=== PATIENT | female | born 1960 | race Caucasian/White ===

== ENCOUNTER 2021-09-26 19:08 | Observation (INO) | payer MEDICARE, SELFPAY ==
--- NOTE | 2021-09-26 18:55 | ECG_ITS ---
APPROVED REPORT Exam: Resting ECG HR:103 bpm ECG Measurements Heart Rate 103 AXES QRSd 118 QRS 17 QT 357 T 5 QTc 417 Conclusion ATRIAL FLUTTER/TACHYCARDIA WITH RAPID VENTRICULAR RESPONSE LEFT VENTRICULAR HYPERTROPHY AND ST-T CHANGE [VOLTAGE CRITERIA PLUS ST/T ABNORMALITY] ABNORMAL ECG UNCONFIRMED REPORT Electronically signed by : Gus Young MD 09/29/2021 21:33:31
[2021-09-26 19:00] VITALS: BP 106/77; PULSE 105; RESP 24; TEMP 37; O2SAT 98; BMI 32.9
--- NOTE | 2021-09-26 19:01 | HMH.EDGENADL ---
ED Disposition Clinical Impression: Acute myocardial infarction Qualifiers: Myocardial infarction type: non-ST elevation myocardial infarction Qualified Code(s): I21.4 - Non-ST elevation (NSTEMI) myocardial infarction Atrial fibrillation Qualifiers: Atrial fibrillation type: longstanding persistent Qualified Code(s): I48.11 - Longstanding persistent atrial fibrillation Disposition: Admitted As Inpatient Condition on Discharge: Serious - Critical Care Critical Care Time: No Attestation: On , the high probability of a clinically significant, sudden or life threatening deterioration of the following system(s) required my full and direct attention, intervention and personal management. The time I documented below is in addition to time spent performing reported procedures but includes the following listed in this critical care notation. Medical Decision Making - Medical Records Medical records reviewed: Yes: I reviewed the patient's medical records. - Paul Inquiry Pt receiving controlled substance: No Vital Signs: 09/26/21 19:00 Temperature 98.6 F Temperature Source Oral Pulse Rate [Radial] 105 H Respiratory Rate 24 Blood Pressure [Right Arm] 106/77 L Blood Pressure Mean [Right Arm] 86 Blood Pressure Source [Right Arm] Manual Cuff/ Palpation Blood Pressure Position [Right Arm] Sitting 02 Sat by Pulse Oximetry 98 Oxygen Delivery Method Nasal Cannula Oxygen Flow Rate (LPM) 2 - Lab Data Lab Results 09/26/21 19:15: WBC 14.4 H, RBC 4.47, Hgb 10.9 L, Hct 38.4, MCV 85.8, MCH 24.4 L, MCHC 28.5 L, RDW 18.2 H, Plt Count 454 H, MPV 8.4, Neut % (Auto) 94.7 H, Lymph % (Auto) 3.0 L, Sevier % (Auto) 1.4 L, Eos % (Auto) 0.4, Baso % (Auto) 0.5, Neut # (Auto) 13.6 H, Lymph # (Auto) 0.4 L, Sevier # (Auto) 0.2, Eos # (Auto) 0.1, Baso # (Auto) 0.1, Total Counted 100, Neutrophils % (Manual) 86 H, Band Neutrophils % 7.0, Lymphocytes % (Manual) 6 L, Monocytes % (Manual) 1 L, Platelet Estimate Slight increase, Hypochromasia 3+, Anisocytosis 2+, Microcytosis 2+, Rouleaux 1+ 09/26/21 19:15: Sodium 137, Potassium 3.9, Chloride 103, Carbon Dioxide 26, Anion Gap 11.9, BUN 21 H, Creatinine 0.70, Estimated Creat Clear 74, Estimated GFR 85, Est GFR ( Amer) 102, Glucose 165 H, Calcium 8.7, Total Bilirubin 0.1 L, AST 22, ALT 23, Alkaline Phosphatase 171 H, Total Protein 6.3, Albumin 3.3 L, Globulin 3.0, Albumin/Globulin Ratio 1.1 09/26/21 19:15: SARS-CoV-2 (PCR) Not detected, Influenza A Untype (PCR) Not detected, Influenza Type B (PCR) Not detected Result diagrams: 09/26/21 19:15 09/26/21 19:15 Orders (Tests/Meds): ORDERS Category Date Time Status Brain Natriuretic Peptide Stat Lab 09/26/21 19:15 Results Comprehensive Metabolic Panel Stat Lab 09/26/21 19:15 Results Troponin I Q3H Lab 09/26/21 19:15 Results Troponin I Q3H Lab 09/26/21 22:15 Ordered - ECG Data Tracing #1 I reviewed this ECG and interpreted as documented below: The patient is EKG was done at 1850 6 PM. It shows a tachycardia with a ventricular rate of 103 bpm and is somewhat irregular. There is artifact present. It is difficult to determine whether this is atrial fibrillation or a sinus arrhythmia. It is unchanged from an earlier EKG done at 1745 at the [facility]. QRS is somewhat widened consistent with possible left bundle branch block. - Physician Consults Physician Consulted: Gissell Time: 20:04 Reason -: Admission Comment/Response: Dr. Borrero has agreed to admit the patient to his service. She will be admitted. He is aware that the CT of the chest results are still pending. The CT was performed at the outside institution. We have been promised that the CT results will be faxed to us. Also, the patient came with a CD containing the images for this CT. The patient is already on Eliquis. I think Kellee General Adult HPI - General Stated complaint: NSTEMI Time Seen by Provider: 09/26/21 19:01 Mode of Arrival: EMS Sour
[2021-09-26 19:30] VITALS: BP 124/80; PULSE 105; RESP 23; O2SAT 97
[2021-09-26 19:32] LABS: Basophils # 0.1 K/mm3 (0-0.2); Basophils % 0.5 % (0.1-2.0); Eosinophils # 0.1 K/mm3 (0.0-0.4); Eosinophils % 0.4 % (0.1-12.0); Hematocrit 38.4 % (37.0-47.0); Hemoglobin 10.9 g/dL (12.2-16.2); Lymphocytes # 0.4 K/mm3 (0.7-4.5); Mean Corpuscular HGB Conc 28.5 g/dL (31.8-35.4); Mean Corpuscular Hemoglobin 24.4 pg (27.0-31.2); Mean Corpuscular Volume 85.8 fl (81-99); Mean Platelet Volume 8.4 fl (7.4-10.4); Monocytes # 0.2 K/mm3 (0.1-1.0); Monocytes % 1.4 % (1.7-9.3); Neutrophils # 13.6 K/mm3 (1.8-7.8); Neutrophils % 94.7 % (37.0-80.0); Platelet Count 454 K/mm3 (142-424); Red Blood Count 4.47 M/mm3 (4.20-5.40); Red Cell Distribution Width 18.2 % (11.5-17.5); White Blood Count 14.4 K/mm3 (4.8-10.8)
[2021-09-26 19:40] LABS: Coronavirus 19, PCR Not Detected (NotDetected); Influenza A, PCR Not Detected (NotDetected); Influenza B, PCR Not Detected (NotDetected); MANUAL DIFFERENTIAL MANUAL DIFFERENTIAL (MANUAL DIFF)
[2021-09-26 19:53] LABS: Alanine Aminotransferase 23 U/L (12-78); Albumin Level 3.3 g/dl (3.5-5.0); Albumin/Globulin Ratio 1.1 (1.1-1.8); Alkaline Phosphatase 171 U/L (38-126); Anion Gap 11.9 mEq/L (5-15); Aspartate Amino Transferase 22 U/L (14-36); Blood Urea Nitrogen 21 mg/dl (7-17); Calcium 8.7 mg/dl (8.4-10.2); Carbon Dioxide 26 mmol/L (22.0-30.0); Chloride 103 mmol/L (98-107); Creatinine Clearance Estimated 74 mL/min (50-200); Estimated Glomerular Filt Rate 85 ml/min (>60); GFR (African American) 102 ML/MIN (>60); Glucose 165 mg/dl (74-100); Potassium 3.9 mmoL/L (3.5-5.1); Sodium 137 mmol/L (136-145); Total Protein,Serum 6.3 g/dl (6.3-8.2)
[2021-09-26 19:56] LABS: Anisocytosis 2+; Hypochromasia 3+; Lymphocytes % 6 % (10-50); Microcytosis 2+; Monocytes % 1 % (2-9); Neutrophils % 86 % (42-76); Platelet Estimate Slight Increase; Rouleaux 1+; Total Cells Counted 100
[2021-09-26 19:57] LABS: Bilirubin,Total 0.1 mg/dl (0.2-1.3)
[2021-09-26 20:00] VITALS: BP 143/76; PULSE 101; RESP 24; O2SAT 97
[2021-09-26 20:05] LABS: NT Pro Brain Natriuretic Pep. 5610 pg/mL (0-125); Troponin I 0.06 ng/ml (0.00-0.034)
[2021-09-26 20:12] VITALS: BP 143/76; PULSE 105; RESP 20; TEMP 36.6; O2SAT 94; BMI 30.9
[2021-09-26 20:23] VITALS: BP 143/76; PULSE 101; RESP 16; TEMP 37; O2SAT 97
--- NOTE | 2021-09-26 20:30 | PC.NURSE ---
PT ARRIVED TO FLOOR VIA W/C FROM ED W/STAFF @[id number]
[2021-09-26 20:45] VITALS: PULSE 92
[2021-09-26 20:45] LABS: T4 (Thyroxine) 11.7 ug/dl (5.53-11.0)
[2021-09-26 20:58] LABS: Thyroid Stimulating Hormone 2.62 uIU/mL (0.465-4.68)
[2021-09-26 21:23] LABS: Microscopic, Urine URINE MICROSCOPIC (MICROSCOPIC)
[2021-09-26 21:29] LABS: Appearance,Urine CLEAR (Clear); Bilirubin,Urine Negative (Negative); Blood, Urine 1+ (Negative); Color,Urine YELLOW (Yellow); Glucose,Urine (UA) Negative (Negative); Ketones,Urine TRACE (Negative); Leukocyte Esterase,Urine Negative (Negative); Nitrate,Urine Negative (Negative); PH,Urine 5.5 (5.0-8.5); Protein,Urine 3+ (Negative); Specific Gravity, Urine 1.025 (1.005-1.030); Urobilinogen,Urine 0.2 EU/dl (0.2)
[2021-09-27] VITALS (9 sets, daily range): BP systolic 84–123; BP diastolic 58–87; PULSE 70–104; RESP 16–17; TEMP 36.3–36.8; O2SAT 90–99; BMI 30.9
[2021-09-27 00:10] LABS: Troponin I 0.05 ng/ml (0.00-0.034)
--- NOTE | 2021-09-27 04:30 | PC.NURSE ---
Patient admitted to floor. Patient states no chest pain throughout shift. VSS. Tele in place rhythm have been sinus and sinus tach.
[2021-09-27 05:50] LABS: Troponin I 0.04 ng/ml (0.00-0.034)
--- NOTE | 2021-09-27 08:27 | P.CONPHA_ITS ---
[facility] Pharmacy VTE Monitoring - Patient Demographics Admission date: 09/26/21 Report Date: 09/27/21 Time: 08:27 Allergies/Adverse Reactions: Patient Allergies No Known Allergies Allergy (Verified 09/26/21 19:47) Height: 1.57 m Weight: 76.34 kg Patient Problems: Current Active Problems Acute myocardial infarction (Acute) Atrial fibrillation (Acute) - VTE Risk Labs: VTE Related Lab Results Hgb 10.9 g/dL (12.2-16.2) L 09/26/21 19:15 Hct 38.4 % (37.0-47.0) 09/26/21 19:15 Plt Count 454 K/mm3 (142-424) H 09/26/21 19:15 BUN 21 mg/dl (7-17) H 09/26/21 19:15 Creatinine 0.70 mg/dl (0.52-1.04) 09/26/21 19:15 Estimated Creat Clear 74 mL/min (50-200) 09/26/21 19:15 VTE Score: 6 VTE Risk Level: Moderate Risk - Prophylaxis VTE Prophylaxis Ordered?: Yes Types of VTE Prophylaxis: TEDS Knee High, Pharmacological Location of Applied Device: Bilateral Lower Extremeties Pharmacologic Type: Other (ELIQUIS)
--- NOTE | 2021-09-27 08:52 | HMH.PHAINT ---
MEDICATION RECONCILIATION COMPLETED ON PATIENT USING EXTERNAL FILL HISTORY FROM PHARMACY AND PATIENT INTERVIEW. -BRICE SWANSON, KAREND
--- NOTE | 2021-09-27 09:47 | HMH.HP ---
*Admission Date: 09/26/21 *Chief complaint: sob/weakness *History of present illness: this patient was seen at [facility] ed -with sob and weakness and noted to have elevated trop and was transferred to [facility] for card eval - per dr ziegler- pt with hx of cad and had cabg in past and ht cath in 2020 at [facility] with no reported stents - will try to obtain records- has tob use and a fib and diabetes - pt admitted for eval and treatment [facility] History I have reviewed the patient's past medical history: Yes Medical History: Reports:: Congestive Heart Failure, Deep Vein Thrombosis, Diabetes Mellitus Type 2, Hypertension, Myocardial Infarction Denies:: Cancer, Diabetes Mellitus Type 1, Internal Pacemaker, MRSA *Have you ever received a pneumonia vaccine?: No *Have you received a flu vaccine this season?: No Other Surgeries: Yes: CABG. No: Pacemaker Amputation: No Fractures: No - *Social History Last grade of school completed: 11th or 12th Smoking Status: Current every day smoker Tobacco Type: cigarettes # Packs/Day (cigarettes): 1 Alcohol Intake: never *Occupational Status:: retired Household Members: family *Travel in the last 8 weeks: None Family Hx:: Heart Attack Review of Systems - Review of Systems Review of systems:: pertinent systems reviewed and negative unless documented below - Constitutional Reports weakness, Denies fever(s) - Eyes Denies change in vision - ENT Denies sore throat - *Cardiovascular Reports shortness of breath, Denies chest pain - *Respiratory Denies cough, Denies coughing up blood - *Gastrointestinal Denies abdominal pain - *Genitourinary Denies blood in urine - *Musculoskeletal Denies joint pain - Integumentary/Breasts Denies rash - *Neurologic Denies seizure-like activity - Psychiatric Denies confusion Meds Home Medications Medication Instructions Recorded Confirmed Type ARIPiprazole [Abilify 5mg Tablet] 5 mg PO DAILY 09/26/21 09/26/21 History Apixaban [Eliquis 5mg tab] 5 mg PO BID 09/26/21 09/26/21 History Atorvastatin Calcium [Lipitor 80mg 80 mg PO HS 09/26/21 09/26/21 History Tablet*] Fluticasone/Vilanterol [Breo 1 puff IH DAILY 09/26/21 09/27/21 History Ellipta 200-25 Mcg INH] Losartan Potassium 25 mg PO DAILY 09/26/21 09/26/21 History Metformin HCl [Metformin 1000mg 1,000 mg PO BID 09/26/21 09/27/21 History Tablets] PARoxetine HCL [Paxil] 40 mg PO DAILY 09/26/21 09/26/21 History Potassium Chloride 20 meq PO DAILY 09/26/21 09/26/21 History Trazodone HCl 150 mg PO HS 09/26/21 09/27/21 History Insulin Glargine,Hum.rec.anlog 50 units SQ HS 09/27/21 09/27/21 History [Lantus Solostar 100 Units/mL 3mL flexpen] Magnesium Oxide [Mag-Ox 400mg Tab] 400 mg PO DAILY 09/27/21 09/27/21 History Metoprolol Tartrate [Lopressor 50 mg PO BID 09/27/21 09/27/21 History 50mg tablet] Pioglitazone HCl [Actos 15mg 15 mg PO DAILYDM 09/27/21 09/27/21 History tablet] Allergies Allergy/AdvReac Type Severity Reaction Status Date / Time No Known Allergies Allergy Verified 09/26/21 19:47 Exam Vital signs and Labs for Last 24 Hours: Temp Pulse Resp BP Pulse Ox 97.4 F L 83 16 123/87 98 09/27/21 08:00 09/27/21 08:18 09/27/21 08:00 09/27/21 08:00 09/27/21 08:18 Laboratory Results - last 24 hr 09/26/21 19:15: WBC 14.4 H, RBC 4.47, Hgb 10.9 L, Hct 38.4, MCV 85.8, MCH 24.4 L, MCHC 28.5 L, RDW 18.2 H, Plt Count 454 H, MPV 8.4, Neut % (Auto) 94.7 H, Lymph % (Auto) 3.0 L, Bath % (Auto) 1.4 L, Eos % (Auto) 0.4, Baso % (Auto) 0.5, Neut # (Auto) 13.6 H, Lymph # (Auto) 0.4 L, Bath # (Auto) 0.2, Eos # (Auto) 0.1, Baso # (Auto) 0.1, Total Counted 100, Neutrophils % (Manual) 86 H, Band Neutrophils % 7.0, Lymphocytes % (Manual) 6 L, Monocytes % (Manual) 1 L, Platelet Estimate Slight increase, Hypochromasia 3+, Anisocytosis 2+, Microcytosis 2+, Rouleaux 1+ 09/26/21 19:15: Sodium 137, Potassium 3.9, Chloride 103, Carbon Dioxide 26, Anion Gap
--- NOTE | 2021-09-27 09:48 | XR_ITS ---
PROCEDURE INFORMATION: Exam: XR Chest Exam date and time: 09/27/2021 10:19 AM Age: 61 years old Clinical indication: Shortness of breath; Additional info: SOB TECHNIQUE: Imaging protocol: Radiologic exam of the chest. Views: 2 views. COMPARISON: No relevant prior studies available. FINDINGS: Lungs: Emphysematous change and interstitial/airspace disease. Subcentimeter pulmonary nodules. Pleural spaces: Small right pleural effusion. Heart/Mediastinum: Borderline cardiomegaly. Vasculature: Calcification of the thoracic aorta. Bones/joints: Median sternotomy. Osteopenia and degenerative change. IMPRESSION: 1. Emphysematous change and interstitial/airspace disease. 2. Small right pleural effusion.
--- NOTE | 2021-09-27 10:02 | PC.NURSE ---
SPOKE WITH DR YE VIA TELEPHONE WHO GAVE OKAY TO GIVE PT A BREAKFAST TRAY AND MORNING MEDS
[2021-09-27 10:21] LABS: Basophils % 0.2 % (0.1-2.0); Eosinophils # 0.1 K/mm3 (0.0-0.4); Eosinophils % 0.9 % (0.1-12.0); Hematocrit 37.3 % (37.0-47.0); Hemoglobin 10.9 g/dL (12.2-16.2); Lymphocytes # 0.6 K/mm3 (0.7-4.5); Lymphocytes % 6.3 % (10-50); Mean Corpuscular HGB Conc 29.2 g/dL (31.8-35.4); Mean Corpuscular Hemoglobin 24.9 pg (27.0-31.2); Mean Corpuscular Volume 85.3 fl (81-99); Mean Platelet Volume 8.7 fl (7.4-10.4); Monocytes # 0.5 K/mm3 (0.1-1.0); Neutrophils # 8.2 K/mm3 (1.8-7.8); Neutrophils % 87.6 % (37.0-80.0); Platelet Count 479 K/mm3 (142-424); Red Blood Count 4.38 M/mm3 (4.20-5.40); Red Cell Distribution Width 18.3 % (11.5-17.5); White Blood Count 9.4 K/mm3 (4.8-10.8)
[2021-09-27 10:25] LABS: MANUAL DIFFERENTIAL MANUAL DIFFERENTIAL (MANUAL DIFF)
[2021-09-27 10:32] LABS: Chloride 104 mmol/L (98-107)
[2021-09-27 10:33] LABS: Potassium 3.8 mmoL/L (3.5-5.1); Sodium 139 mmol/L (136-145)
[2021-09-27 10:35] LABS: Alanine Aminotransferase 28 U/L (12-78); Aspartate Amino Transferase 27 U/L (14-36); Bilirubin,Total 0.4 mg/dl (0.2-1.3); Blood Urea Nitrogen 21 mg/dl (7-17); Creatinine Clearance Estimated 69 mL/min (50-200); Estimated Glomerular Filt Rate 85 ml/min (>60); GFR (African American) 102 ML/MIN (>60)
[2021-09-27 10:36] LABS: Albumin Level 3.7 g/dl (3.5-5.0); Albumin/Globulin Ratio 1.2 (1.1-1.8); Alkaline Phosphatase 149 U/L (38-126); Anion Gap 10.8 mEq/L (5-15); Calcium 8.9 mg/dl (8.4-10.2); Carbon Dioxide 28 mmol/L (22.0-30.0); Glucose 298 mg/dl (74-100); Total Protein,Serum 6.7 g/dl (6.3-8.2)
[2021-09-27 10:44] LABS: Lymphocytes % 6 % (10-50); Monocytes % 8 % (2-9); Neutrophils % 86 % (42-76); Nucleated Red Blood Cells 1; Total Cells Counted 100
[2021-09-27 10:50] LABS: Platelet Estimate Slight Increase
[2021-09-27 10:54] LABS: Anisocytosis 1+; Hypochromasia 1+; Ovalocytes 1+; Poikilocytosis 1+; Tear Drop Cells 1+
[2021-09-27 12:03] LABS: POC Glucose,Bedside 308 (70-110)
[2021-09-27 16:23] LABS: POC Glucose,Bedside 258 (70-110)
--- NOTE | 2021-09-27 17:48 | PC.NURSE ---
PT IS AOX4, HAS AMBULATED TO BATHROOM FOR ELIMINATION AND TOLERATED WELL. GOOD DIURESIS NOTED. NO C/O OF CHEST PAIN SOB OR N/V/D.
[2021-09-27 21:30] LABS: POC Glucose,Bedside 304 (70-110)
[2021-09-28] VITALS (12 sets, daily range): BP systolic 92–144; BP diastolic 71–97; PULSE 62–110; RESP 16–17; TEMP 36.6–37; O2SAT 90–99; BMI 31.4
--- NOTE | 2021-09-28 03:42 | PC.NURSE ---
Patient rested well. Patient having good output, stand by assist to the restroom. Patient tolerating 2L NC sating above 90%.
[2021-09-28 09:57] LABS: Basophils % 0.2 % (0.1-2.0); Eosinophils # 0.2 K/mm3 (0.0-0.4); Eosinophils % 1.3 % (0.1-12.0); Hematocrit 37.8 % (37.0-47.0); Hemoglobin 10.5 g/dL (12.2-16.2); Lymphocytes # 0.4 K/mm3 (0.7-4.5); Lymphocytes % 2.9 % (10-50); Mean Corpuscular HGB Conc 27.7 g/dL (31.8-35.4); Mean Corpuscular Hemoglobin 23.9 pg (27.0-31.2); Mean Corpuscular Volume 86.2 fl (81-99); Monocytes # 0.6 K/mm3 (0.1-1.0); Monocytes % 3.9 % (1.7-9.3); Neutrophils # 14.6 K/mm3 (1.8-7.8); Neutrophils % 91.8 % (37.0-80.0); Platelet Count 461 K/mm3 (142-424); Red Blood Count 4.38 M/mm3 (4.20-5.40); Red Cell Distribution Width 18.2 % (11.5-17.5); White Blood Count 15.9 K/mm3 (4.8-10.8)
[2021-09-28 09:59] LABS: MANUAL DIFFERENTIAL MANUAL DIFFERENTIAL (MANUAL DIFF)
[2021-09-28 10:08] LABS: Chloride 102 mmol/L (98-107); Sodium 134 mmol/L (136-145)
[2021-09-28 10:09] LABS: Potassium 4.6 mmoL/L (3.5-5.1)
[2021-09-28 10:11] LABS: Anion Gap 7.6 mEq/L (5-15); Blood Urea Nitrogen 25 mg/dl (7-17); Calcium 8.8 mg/dl (8.4-10.2); Carbon Dioxide 29 mmol/L (22.0-30.0); Creatinine Clearance Estimated 70 mL/min (50-200); Estimated Glomerular Filt Rate 101 ml/min (>60); GFR (African American) 122 ML/MIN (>60); Glucose 316 mg/dl (74-100)
--- NOTE | 2021-09-28 11:08 | HMH.ACPN2 ---
Internal Medicine - PN: Subj *Date: 09/29/21 *Time: 08:02 Interval history: improved but still sob- had diuresis - still not ambulatory sec to sob Exam Vital signs and Labs for Last 24 Hours: Temp Pulse Resp BP Pulse Ox 97.8 F 95 H 17 119/75 93 L 09/28/21 08:00 09/28/21 08:06 09/28/21 08:00 09/28/21 08:00 09/28/21 08:06 Laboratory Results - last 24 hr 09/27/21 11:52: POC Glucose 308 H* 09/27/21 16:09: POC Glucose 258 H 09/27/21 20:14: POC Glucose 304 H* 09/28/21 09:41: WBC 15.9 H D, RBC 4.38, Hgb 10.5 L, Hct 37.8, MCV 86.2, MCH 23.9 L, MCHC 27.7 L, RDW 18.2 H, Plt Count 461 H, MPV 9.0, Neut % (Auto) 91.8 H, Lymph % (Auto) 2.9 L, Runnels % (Auto) 3.9, Eos % (Auto) 1.3, Baso % (Auto) 0.2, Neut # (Auto) 14.6 H, Lymph # (Auto) 0.4 L, Runnels # (Auto) 0.6, Eos # (Auto) 0.2, Baso # (Auto) 0.0 09/28/21 09:41: Sodium 134 L, Potassium 4.6 D, Chloride 102, Carbon Dioxide 29, Anion Gap 7.6, BUN 25 H, Creatinine 0.60, Estimated Creat Clear 70, Estimated GFR 101, Est GFR ( Amer) 122, Glucose 316 H, Calcium 8.8 I & O for Last 24 hours: Intake & Output 09/25/21 09/26/21 09/27/21 09/28/21 11:59 11:59 11:59 11:59 Intake Total 1080 / 1080 Output Total 1650 / 1650 650 / 650 Balance -1650 / -1650 430 / 430 Weight 168 lb 4.8 oz 170 lb 6.4 oz - Constitutional no acute distress, obese - *Routine HEENT Exam Head: Present: normocephalic Eye: Present: EOMI, PERRL ENT: Present: mucous membranes dry - *Routine Neck Exam Absent: JVD - *Routine Respiratory Exam Present: decreased breath sounds - *Routine Cardiovascular Exam Present: RRR - *Routine Abdominal Exam Present: soft - *Routine Extremities Exam Present: edema. Absent: calf tenderness - *Routine Skin Exam Present: intact - *Routine Neurological Exam Present: alert, CN II-XII intact - Routine Psychiatric Exam Present: normal affect Assessment and Plan (1) Atrial fibrillation Status: Acute Qualifiers: Atrial fibrillation type: longstanding persistent Qualified Code(s): I48.11 - Longstanding persistent atrial fibrillation Category: Medical Code(s): I48.91 - Unspecified atrial fibrillation (2) COPD with acute exacerbation Status: Acute Category: Medical Code(s): J44.1 - Chronic obstructive pulmonary disease with (acute) exacerbation (3) Obesity (BMI 30.0-34.9) Status: Acute Category: Medical Code(s): E66.9 - Obesity, unspecified (4) Osteopenia determined by x-ray Status: Acute Category: Medical Code(s): M85.80 - Other specified disorders of bone density and structure, unspecified site (5) Anemia Status: Acute Qualifiers: Anemia type: unspecified type Qualified Code(s): D64.9 - Anemia, unspecified Category: Medical Code(s): D64.9 - Anemia, unspecified (6) Thrombocytosis Status: Acute Category: Medical Code(s): D75.839 - Thrombocytosis, unspecified (7) Diabetes mellitus Status: Acute Qualifiers: Diabetes mellitus type: type 2 Diabetes mellitus intermediate teacher insulin use: unspecified intermediate teacher insulin use status Diabetes mellitus complication status: with other specified complication Qualified Code(s): E11.69 - Type 2 diabetes mellitus with other specified complication Category: Medical Code(s): E11.9 - Type 2 diabetes mellitus without complications (8) Elevated troponin Status: Acute Category: Medical Code(s): R77.8 - Other specified abnormalities of plasma proteins
[2021-09-28 11:39] LABS: POC Glucose,Bedside 253 (70-110)
[2021-09-28 11:39] LABS: POC Glucose,Bedside 294 (70-110)
[2021-09-28 12:37] LABS: Eosinophils % 1 % (0-3); Hypochromasia 2+; Lymphocytes % 5 % (10-50); Monocytes % 4 % (2-9); Neutrophils % 90 % (42-76); Nucleated Red Blood Cells 1; Total Cells Counted 100
[2021-09-28 12:38] LABS: Platelet Estimate Slight Increase
[2021-09-28 12:39] LABS: Ovalocytes 1+; Poikilocytosis 1+; Tear Drop Cells 1+
[2021-09-28 16:37] LABS: POC Glucose,Bedside 206 (70-110)
--- NOTE | 2021-09-28 18:21 | PC.NURSE ---
pt has been pleasant t/o shift. RA tolerating well with O2 sat 92%. pt has been independent going to the br with adequate urine output. 20g in LINNETTE SL. bruising noted on R ac and forearm from previous iv sticks. tele shows nsr to sinus tach. non skid socks on, call byrd and personal items within reach, no questions or concerns at this time.
[2021-09-28 21:15] LABS: POC Glucose,Bedside 275 (70-110)
[2021-09-29] VITALS (12 sets, daily range): BP systolic 103–138; BP diastolic 75–90; PULSE 53–106; RESP 16–18; TEMP 36.7–37.1; O2SAT 90–97; BMI 31.0; BMI 30.7
[2021-09-29 05:57] LABS: POC Glucose,Bedside 299 (70-110)
--- NOTE | 2021-09-29 06:19 | PC.NURSE ---
No acute changes. Pt tolerating RA well with sats >90%. Pt has not voiced any complaints to staff. Able to ambulate to BR independently. Call light within reach.
--- NOTE | 2021-09-29 06:35 | PC.NURSE ---
Pt room air sat resting was 83%, placed pt on 2L NC
--- NOTE | 2021-09-29 09:24 | HMH.ACPN2 ---
Internal Medicine - PN: Subj *Date: 09/30/21 *Time: 06:45 Interval history: looks better but still sob with any exertion Exam Vital signs and Labs for Last 24 Hours: Temp Pulse Resp BP Pulse Ox 98.4 F 106 H 16 114/75 90 L 09/29/21 07:53 09/29/21 07:53 09/29/21 07:53 09/29/21 07:53 09/29/21 07:53 Laboratory Results - last 24 hr 09/28/21 05:35: POC Glucose 253 H 09/28/21 09:41: WBC 15.9 H D, RBC 4.38, Hgb 10.5 L, Hct 37.8, MCV 86.2, MCH 23.9 L, MCHC 27.7 L, RDW 18.2 H, Plt Count 461 H, MPV 9.0, Neut % (Auto) 91.8 H, Lymph % (Auto) 2.9 L, Bowie % (Auto) 3.9, Eos % (Auto) 1.3, Baso % (Auto) 0.2, Neut # (Auto) 14.6 H, Lymph # (Auto) 0.4 L, Bowie # (Auto) 0.6, Eos # (Auto) 0.2, Baso # (Auto) 0.0, Total Counted 100, Neutrophils % (Manual) 90 H, Lymphocytes % (Manual) 5 L, Monocytes % (Manual) 4, Eosinophils % (Manual) 1, Nucleated RBCs 1, Platelet Estimate Slight increase, Hypochromasia 2+, Poikilocytosis 1+, Tear Drop Cells 1+, Ovalocytes 1+ 09/28/21 09:41: Sodium 134 L, Potassium 4.6 D, Chloride 102, Carbon Dioxide 29, Anion Gap 7.6, BUN 25 H, Creatinine 0.60, Estimated Creat Clear 70, Estimated GFR 101, Est GFR ( Amer) 122, Glucose 316 H, Calcium 8.8 09/28/21 11:18: POC Glucose 294 H 09/28/21 16:29: POC Glucose 206 H 09/28/21 20:25: POC Glucose 275 H 09/29/21 05:32: POC Glucose 299 H I & O for Last 24 hours: Intake & Output 09/26/21 09/27/21 09/28/21 09/29/21 11:59 11:59 11:59 11:59 Intake Total 1080 / 1080 720 / 720 Output Total 1650 / 1650 650 / 650 1999 Balance -1650 / -1650 430 / 430 -1280 / -1280 Weight 168 lb 4.8 oz 170 lb 6.4 oz 168 lb 11.2 oz - Constitutional no acute distress - *Routine HEENT Exam Head: Present: normocephalic Eye: Present: EOMI, PERRL ENT: Present: mucous membranes dry - *Routine Neck Exam Absent: JVD - *Routine Respiratory Exam Present: decreased breath sounds, rhonchi, wheezes - *Routine Cardiovascular Exam Present: RRR, murmur, S4 - *Routine Abdominal Exam Present: soft - *Routine Extremities Exam Absent: calf tenderness - *Routine Skin Exam Present: intact - *Routine Neurological Exam Present: alert, CN II-XII intact - Routine Psychiatric Exam Present: normal affect Assessment and Plan (1) Atrial fibrillation Status: Acute Qualifiers: Atrial fibrillation type: longstanding persistent Qualified Code(s): I48.11 - Longstanding persistent atrial fibrillation Category: Medical Code(s): I48.91 - Unspecified atrial fibrillation (2) COPD with acute exacerbation Status: Acute Category: Medical Code(s): J44.1 - Chronic obstructive pulmonary disease with (acute) exacerbation (3) Obesity (BMI 30.0-34.9) Status: Acute Category: Medical Code(s): E66.9 - Obesity, unspecified (4) Osteopenia determined by x-ray Status: Acute Category: Medical Code(s): M85.80 - Other specified disorders of bone density and structure, unspecified site (5) Anemia Status: Acute Qualifiers: Anemia type: unspecified type Qualified Code(s): D64.9 - Anemia, unspecified Category: Medical Code(s): D64.9 - Anemia, unspecified (6) Thrombocytosis Status: Acute Category: Medical Code(s): D75.839 - Thrombocytosis, unspecified (7) Diabetes mellitus Status: Acute Qualifiers: Diabetes mellitus type: type 2 Diabetes mellitus fdc insulin use: unspecified long term care pharmacist insulin use status Diabetes mellitus complication status: with other specified complication Qualified Code(s): E11.69 - Type 2 diabetes mellitus with other specified complication Category: Medical Code(s): E11.9 - Type 2 diabetes mellitus without complications (8) Elevated troponin Status: Acute Category: Medical Code(s): R77.8 - Other specified abnormalities of plasma proteins (9) CHF (congestive heart failure) Status: Acute Qualifiers: Heart failure type: unspecified Heart failure chronicity: acute Anibal
--- NOTE | 2021-09-29 09:26 | XR_ITS ---
PROCEDURE INFORMATION: Exam: XR Chest Exam date and time: 09/29/2021 9:56 AM Age: 61 years old Clinical indication: Shortness of breath; Additional info: SOB TECHNIQUE: Imaging protocol: Radiologic exam of the chest. Views: 2 views. COMPARISON: CR XR CHEST 2V 09/27/2021 10:19 AM FINDINGS: Lungs: There are some mild patchy opacities in the mid left lung. Pleural spaces: Small bilateral pleural effusions. Heart/Mediastinum: Changes of prior CABG. Bones/joints: Unremarkable. IMPRESSION: 1. Mild patchy opacities in the mid left lung, which may reflect atelectasis versus pneumonia. 2. Small bilateral pleural effusions.
[2021-09-29 10:53] LABS: Basophils # 0.1 K/mm3 (0-0.2); Basophils % 0.3 % (0.1-2.0); Eosinophils # 0.2 K/mm3 (0.0-0.4); Eosinophils % 1.2 % (0.1-12.0); Hematocrit 37.2 % (37.0-47.0); Hemoglobin 10.6 g/dL (12.2-16.2); Lymphocytes # 0.4 K/mm3 (0.7-4.5); Lymphocytes % 2.5 % (10-50); Mean Corpuscular HGB Conc 28.6 g/dL (31.8-35.4); Mean Corpuscular Hemoglobin 23.7 pg (27.0-31.2); Mean Platelet Volume 9.3 fl (7.4-10.4); Monocytes # 0.6 K/mm3 (0.1-1.0); Monocytes % 3.6 % (1.7-9.3); Neutrophils # 16.3 K/mm3 (1.8-7.8); Neutrophils % 92.5 % (37.0-80.0); Platelet Count 489 K/mm3 (142-424); Red Blood Count 4.49 M/mm3 (4.20-5.40); White Blood Count 17.7 K/mm3 (4.8-10.8)
[2021-09-29 11:02] LABS: Alanine Aminotransferase 30 U/L (12-78); Albumin Level 3.7 g/dl (3.5-5.0); Albumin/Globulin Ratio 1.3 (1.1-1.8); Alkaline Phosphatase 122 U/L (38-126); Anion Gap 10.3 mEq/L (5-15); Aspartate Amino Transferase 25 U/L (14-36); Bilirubin,Total 0.2 mg/dl (0.2-1.3); Blood Urea Nitrogen 30 mg/dl (7-17); Calcium 9.1 mg/dl (8.4-10.2); Carbon Dioxide 32 mmol/L (22.0-30.0); Chloride 96 mmol/L (98-107); Creatinine Clearance Estimated 70 mL/min (50-200); Estimated Glomerular Filt Rate 85 ml/min (>60); GFR (African American) 102 ML/MIN (>60); Globulin 2.8 g/dL (1.3-3.2); Glucose 260 mg/dl (74-100); Potassium 4.3 mmoL/L (3.5-5.1); Sodium 134 mmol/L (136-145); Total Protein,Serum 6.5 g/dl (6.3-8.2)
[2021-09-29 11:10] LABS: MANUAL DIFFERENTIAL MANUAL DIFFERENTIAL (MANUAL DIFF)
[2021-09-29 12:11] LABS: POC Glucose,Bedside 243 (70-110)
[2021-09-29 12:23] LABS: Lymphocytes % 5 % (10-50); Monocytes % 7 % (2-9); Neutrophils % 88 % (42-76); Total Cells Counted 100
[2021-09-29 12:26] LABS: Hypochromasia 3+; Ovalocytes 2+; Rouleaux 1+
[2021-09-29 12:27] LABS: Platelet Estimate Normal
--- NOTE | 2021-09-29 13:15 | PC.NURSE ---
Pt found again on room air, sat was 83% resting. Placed back on 2L and recovered to 92%.
[2021-09-29 17:02] LABS: POC Glucose,Bedside 368 (70-110)
--- NOTE | 2021-09-29 18:31 | PC.NURSE ---
Patient refused new iv stick as she stated she is a hard stick and an ultrasound had been used to place current iv. Patient educated about risks of infection but still refuses new iv. Patient able to ambulate several times a day as she left the floor multiple times during the day with family. Paper signed and patient educated that [facility] is not liable once she steps off the floor. VS stable and patient remained on room air with no other complaints.
[2021-09-29 20:28] LABS: POC Glucose,Bedside 209 (70-110)
[2021-09-30] VITALS (9 sets, daily range): BP systolic 100–138; BP diastolic 65–94; PULSE 60–120; RESP 17–20; TEMP 36.5–36.9; O2SAT 89–97; BMI 30.8
--- NOTE | 2021-09-30 06:43 | PC.NURSE ---
No acute changes. Pt tolerating RA with 2 L nc PRN well with sats >90%. Pt able to ambulate to BR independently. No complaints voiced to staff. Call light within reach
[2021-09-30 07:55] LABS: Anion Gap 9.2 mEq/L (5-15); Blood Urea Nitrogen 31 mg/dl (7-17); Calcium 8.6 mg/dl (8.4-10.2); Carbon Dioxide 32 mmol/L (22.0-30.0); Chloride 97 mmol/L (98-107); Creatinine Clearance Estimated 69 mL/min (50-200); Estimated Glomerular Filt Rate 101 ml/min (>60); GFR (African American) 122 ML/MIN (>60); Glucose 273 mg/dl (74-100); Potassium 4.2 mmoL/L (3.5-5.1); Sodium 134 mmol/L (136-145)
[2021-09-30 07:56] LABS: Eosinophils % 0.1 % (0.1-12.0); Hematocrit 34.2 % (37.0-47.0); Hemoglobin 10.7 g/dL (12.2-16.2); Lymphocytes # 0.5 K/mm3 (0.7-4.5); Lymphocytes % 3.7 % (10-50); Mean Corpuscular HGB Conc 31.2 g/dL (31.8-35.4); Mean Corpuscular Hemoglobin 24.9 pg (27.0-31.2); Mean Corpuscular Volume 79.7 fl (81-99); Mean Platelet Volume 8.5 fl (7.4-10.4); Monocytes # 0.6 K/mm3 (0.1-1.0); Monocytes % 4.1 % (1.7-9.3); Neutrophils # 12.6 K/mm3 (1.8-7.8); Neutrophils % 92.1 % (37.0-80.0); Platelet Count 442 K/mm3 (142-424); Red Blood Count 4.29 M/mm3 (4.20-5.40); Red Cell Distribution Width 16.9 % (11.5-17.5); White Blood Count 13.7 K/mm3 (4.8-10.8)
[2021-09-30 08:02] LABS: MANUAL DIFFERENTIAL MANUAL DIFFERENTIAL (MANUAL DIFF)
--- NOTE | 2021-09-30 08:16 | HMH.CNCARD ---
History of Present Illness Consult date: 09/30/21 Requesting physician: Renard Borrero Consult reason: shortness of breath Chief complaint: NSTEMI, SOA Additional Medical History:: 1. Coronary artery disease A. History of three-vessel bypass approximately B. History of coronary stenting approximately 2009 C. History of left heart catheterization approximately 2020, [facility] in [place], [place] with no need for intervention per patient. 2. Continued tobacco use of 45 years with 1/2 to 1 pack/day A. COPD/emphysema 3. Diabetes mellitus, treated for about 15 years 4. Hypertension 5. Hyperlipidemia 6. History of atrial fibrillation, on anticoagulation with Eliquis therapy 7. History of right carotid endarterectomy with no prior history of CVA 8. Per records, history of DVT History of present illness: 61-year-old white female was initially seen in [facility] for complaint of several days history of increased shortness of breath and fatigue. During the work-up patient was noted to have elevated troponins consistent with non-ST elevation [place] at which time Dr. Niño was contacted with instructions to transfer to [facility] for further evaluation. Patient confirms exertional shortness of breath over the last several days and productive cough of greenish colored phlegm. She denies any chest pain, pressure or tightness at this time. Patient has a flat affect and gives brief answers and admits to being a poor historian. She does relate an episode where she fell and possibly lost consciousness about a month ago but was able to regain consciousness quickly. Denies any evaluation or lingering effects from it. EKG on admission here appears to be atrial fibrillation/atrial flutter with mild tachycardic rate at 103 bpm with no acute ST segment changes. Telemetry shows continued atrial fibrillation. Echocardiogram performed this morning with preliminary result shows EF approximately 40-45%. Elevated white count with chest x-ray evidence of pneumonia and bilateral small pleural effusions. Anemia with hemoglobin in the 10-11 range. [facility] History Medical History: Reports:: Congestive Heart Failure, Deep Vein Thrombosis, Diabetes Mellitus Type 2, Hypertension, Myocardial Infarction Denies:: Cancer, Diabetes Mellitus Type 1, Internal Pacemaker, MRSA *Have you ever received a pneumonia vaccine?: No *Have you received a flu vaccine this season?: No Other Surgeries: Yes: CABG. No: Pacemaker Amputation: No Fractures: No - *Social History Last grade of school completed: 11th or 12th Smoking Status: Current every day smoker Tobacco Type: cigarettes # Packs/Day (cigarettes): 1 Alcohol Intake: never *Occupational Status:: retired Household Members: family *Travel in the last 8 weeks: None Family Hx:: Heart Attack Meds Home Medications Medication Instructions Recorded Confirmed Type ARIPiprazole [Abilify 5mg Tablet] 5 mg PO DAILY 09/26/21 09/26/21 History Apixaban [Eliquis 5mg tab] 5 mg PO BID 09/26/21 09/26/21 History Atorvastatin Calcium [Lipitor 80mg 80 mg PO HS 09/26/21 09/26/21 History Tablet*] Fluticasone/Vilanterol [Breo 1 puff IH DAILY 09/26/21 09/27/21 History Ellipta 200-25 Mcg INH] Losartan Potassium 25 mg PO DAILY 09/26/21 09/26/21 History Metformin HCl [Metformin 1000mg 1,000 mg PO BID 09/26/21 09/27/21 History Tablets] PARoxetine HCL [Paxil] 40 mg PO DAILY 09/26/21 09/26/21 History Potassium Chloride 20 meq PO DAILY 09/26/21 09/26/21 History Trazodone HCl 150 mg PO HS 09/26/21 09/27/21 History Insulin Glargine,Hum.rec.anlog 50 units SQ HS 09/27/21 09/27/21 History [Lantus Solostar 100 Units/mL 3mL flexpen] Magnesium Oxide [Mag-Ox 400mg Tab] 400 mg PO DAILY 09/27/21 09/27/21 History Metoprolol Tartrate [Lopressor 50 mg PO BID 09/27/21 09/27/21 History 50mg tablet] Pioglitazone HCl [Actos 15mg 15 mg PO DAILYDM 09/27/21 09/27/21 History table
--- NOTE | 2021-09-30 09:20 | HMH.ACPN2 ---
Internal Medicine - PN: Subj *Date: 09/30/21 *Time: 14:50 Interval history: 61-year-old female patient sitting up in chair at bedside. She denies any shortness of breath, current oxygenation 95% on room air. Discussed with patient regarding leaving for and medical necessity for her to stay on floor, she verbalizes understanding. Current plan is for her to undergo cardiac catheterization tomorrow Exam Vital signs and Labs for Last 24 Hours: Temp Pulse Resp BP Pulse Ox 97.7 F 74 17 126/76 95 09/30/21 07:56 09/30/21 07:56 09/30/21 07:56 09/30/21 07:56 09/30/21 07:56 Laboratory Results - last 24 hr 09/29/21 10:40: WBC 17.7 H, RBC 4.49, Hgb 10.6 L, Hct 37.2, MCV 83.0, MCH 23.7 L, MCHC 28.6 L, RDW 18.0 H, Plt Count 489 H, MPV 9.3, Neut % (Auto) 92.5 H, Lymph % (Auto) 2.5 L, Clarke % (Auto) 3.6, Eos % (Auto) 1.2, Baso % (Auto) 0.3, Neut # (Auto) 16.3 H, Lymph # (Auto) 0.4 L, Clarke # (Auto) 0.6, Eos # (Auto) 0.2, Baso # (Auto) 0.1, Total Counted 100, Neutrophils % (Manual) 88 H, Lymphocytes % (Manual) 5 L, Monocytes % (Manual) 7, Platelet Estimate Normal, Hypochromasia 3+, Ovalocytes 2+, Rouleaux 1+ 09/29/21 10:40: Sodium 134 L, Potassium 4.3, Chloride 96 L, Carbon Dioxide 32 H, Anion Gap 10.3, BUN 30 H, Creatinine 0.70, Estimated Creat Clear 70, Estimated GFR 85, Est GFR ( Amer) 102, Glucose 260 H, Calcium 9.1, Total Bilirubin 0.2, AST 25, ALT 30, Alkaline Phosphatase 122, Total Protein 6.5, Albumin 3.7, Globulin 2.8, Albumin/Globulin Ratio 1.3 09/29/21 11:17: POC Glucose 243 H 09/29/21 16:29: POC Glucose 368 H* 09/29/21 20:17: POC Glucose 209 H 09/30/21 06:28: WBC 13.7 H, RBC 4.29, Hgb 10.7 L, Hct 34.2 L, MCV 79.7 L, MCH 24.9 L, MCHC 31.2 L, RDW 16.9, Plt Count 442 H, MPV 8.5, Neut % (Auto) 92.1 H, Lymph % (Auto) 3.7 L, Clarke % (Auto) 4.1, Eos % (Auto) 0.1, Baso % (Auto) 0.0 L, Neut # (Auto) 12.6 H, Lymph # (Auto) 0.5 L, Clarke # (Auto) 0.6, Eos # (Auto) 0.0, Baso # (Auto) 0.0 09/30/21 06:28: Sodium 134 L, Potassium 4.2, Chloride 97 L, Carbon Dioxide 32 H, Anion Gap 9.2, BUN 31 H, Creatinine 0.60, Estimated Creat Clear 69, Estimated GFR 101, Est GFR ( Amer) 122, Glucose 273 H, Calcium 8.6 I & O for Last 24 hours: Intake & Output 09/27/21 09/28/21 09/29/21 09/30/21 23:59 23:59 23:59 23:59 Intake Total 840 / 840 720 / 720 720 / 960 240 / 240 Output Total 2300 / 2300 1999 / 1999 2700 / 2700 Balance -1460 / -1460 -1280 / -1280 -1980 / -1740 240 / 240 Weight 168 lb 4.8 oz 170 lb 6.4 oz 168 lb 11.2 oz 167 lb 6.4 oz - Constitutional no acute distress - *Routine HEENT Exam Head: Present: normocephalic Eye: Present: EOMI ENT: Present: mucous membranes moist - *Routine Neck Exam Present: trachea midline. Absent: tracheal deviation - *Routine Respiratory Exam Present: rhonchi. Absent: accessory muscle use - *Routine Cardiovascular Exam Present: RRR - *Routine Abdominal Exam Present: soft, normoactive bowel sounds. Absent: tenderness, firm - *Routine Extremities Exam Present: full ROM, pulses intact. Absent: cyanosis, clubbing, edema, calf tenderness - *Routine Skin Exam Present: intact, dry, warm. Absent: cyanosis, erythema - *Routine Neurological Exam Present: alert, oriented X3. Absent: normal reflexes, altered mental status - Routine Psychiatric Exam Present: normal affect, normal thought process. Absent: auditory hallucinations Assessment and Plan (1) Atrial fibrillation Status: Acute Qualifiers: Atrial fibrillation type: longstanding persistent Qualified Code(s): I48.11 - Longstanding persistent atrial fibrillation Category: Medical Code(s): I48.91 - Unspecified atrial fibrillation (2) COPD with acute exacerbation Status: Acute Category: Medical Code(s): J44.1 - Chronic obstructive pulmonary disease with (acute) exacerbation (3) Obesity (BMI 30.0-34.9) Status: Acute Category: Medical Code(s): E66.9 - Obesity, unspecified (4) Osteopenia determine
[2021-09-30 09:23] LABS: Lymphocytes % 5 % (10-50); Monocytes % 6 % (2-9); Neutrophils % 89 % (42-76); Total Cells Counted 100
[2021-09-30 09:24] LABS: Anisocytosis 1+; Hypochromasia 1+; Microcytosis 1+; Platelet Estimate Normal
[2021-09-30 09:25] LABS: Ovalocytes 1+; Rouleaux 1+
--- NOTE | 2021-09-30 09:30 | HMH.PULMCON ---
*Admission Date: 09/26/21 *Reason for consult:: Community-acquired pneumonia *History of present illness: Ms. Galindo is a 61-year-old female history of COPD, greater than 55-rntm-fcnd smoking history, on Breo inhaler baseline, not needing any oxygen at baseline, CAD cardiac bypass COPD atrial fibrillation, on anticoagulation presented to hospital worsening respiratory distress and pulmonary was called for further management. Patient was initiated on levofloxacin and methylprednisolone on admission. [facility] History Medical History: Reports:: Congestive Heart Failure, Deep Vein Thrombosis, Diabetes Mellitus Type 2, Hypertension, Myocardial Infarction Denies:: Cancer, Diabetes Mellitus Type 1, Internal Pacemaker, MRSA *Have you ever received a pneumonia vaccine?: No *Have you received a flu vaccine this season?: No Other Surgeries: Yes: CABG. No: Pacemaker Amputation: No Fractures: No - *Social History Last grade of school completed: 11th or 12th Smoking Status: Current every day smoker Tobacco Type: cigarettes # Packs/Day (cigarettes): 1 Alcohol Intake: never *Occupational Status:: retired Household Members: family *Travel in the last 8 weeks: None Family Hx:: Heart Attack Meds Home Medications Medication Instructions Recorded Confirmed Type ARIPiprazole [Abilify 5mg Tablet] 5 mg PO DAILY 09/26/21 09/26/21 History Apixaban [Eliquis 5mg tab] 5 mg PO BID 09/26/21 09/26/21 History Atorvastatin Calcium [Lipitor 80mg 80 mg PO HS 09/26/21 09/26/21 History Tablet*] Fluticasone/Vilanterol [Breo 1 puff IH DAILY 09/26/21 09/27/21 History Ellipta 200-25 Mcg INH] Losartan Potassium 25 mg PO DAILY 09/26/21 09/26/21 History Metformin HCl [Metformin 1000mg 1,000 mg PO BID 09/26/21 09/27/21 History Tablets] PARoxetine HCL [Paxil] 40 mg PO DAILY 09/26/21 09/26/21 History Potassium Chloride 20 meq PO DAILY 09/26/21 09/26/21 History Trazodone HCl 150 mg PO HS 09/26/21 09/27/21 History Insulin Glargine,Hum.rec.anlog 50 units SQ 09/27/21 09/27/21 History [Lantus Solostar 100 Units/mL 3mL flexpen] Magnesium Oxide [Mag-Ox 400mg Tab] 400 mg PO DAILY 09/27/21 09/27/21 History Metoprolol Tartrate [Lopressor 50 mg PO BID 09/27/21 09/27/21 History 50mg tablet] Pioglitazone HCl [Actos 15mg 15 mg PO DAILYDM 09/27/21 09/27/21 History tablet] Allergies Allergy/AdvReac Type Severity Reaction Status Date / Time No Known Allergies Allergy Verified 09/26/21 19:47 Internal Medicine - CN: Reslt - Labs CBC & Chem 7: 09/30/21 06:28 09/30/21 06:28 Labs: Short CBC 09/29/21 09/30/21 Range/Units 10:40 06:28 WBC 17.7 H 13.7 H (4.8-10.8) K/mm3 Hgb 10.6 L 10.7 L (12.2-16.2) g/dL Hct 37.2 34.2 L (37.0-47.0) % Plt Count 489 H 442 H (142-424) K/mm3 BMP 09/29/21 09/30/21 10:40 06:28 Sodium 134 L 134 L Potassium 4.3 4.2 Chloride 96 L 97 L Carbon Dioxide 32 H 32 H BUN 30 H 31 H Creatinine 0.70 0.60 Glucose 260 H 273 H Calcium 9.1 8.6 Liver Function 09/29/21 Range/Units 10:40 Total Bilirubin 0.2 (0.2-1.3) mg/dl AST 25 (14-36) U/L ALT 30 (12-78) U/L Alkaline Phosphatase 122 (38-126) U/L Albumin 3.7 (3.5-5.0) g/dl Assessment and Plan (1) Atrial fibrillation Status: Acute Qualifiers: Atrial fibrillation type: longstanding persistent Qualified Code(s): I48.11 - Longstanding persistent atrial fibrillation Category: Medical Code(s): I48.91 - Unspecified atrial fibrillation (2) COPD with acute exacerbation Status: Acute Category: Medical Code(s): J44.1 - Chronic obstructive pulmonary disease with (acute) exacerbation (3) Obesity (BMI 30.0-34.9) Status: Acute Category: Medical Code(s): E66.9 - Obesity, unspecified (4) Osteopenia determined by x-ray Status: Acute Category: Medical Code(s): M85.80 - Other specified disorders of bone density and structure, unspecified site (5) Anemia Status: Acute
[2021-09-30 11:00] LABS: ABG Base Excess 6.1 mmol/L (-2.4-2.3); ABG Oxygen Saturation 90 % (90-100); ABG PCO2 43.6 mmhg (35.0-45.0); ABG PH 7.46 mmol/L (7.35-7.45); ABG PO2 59.4 mmhg (80-100); ABG TCO2 31.4 mmhg (23-27)
[2021-09-30 11:01] LABS: Allen's Test Acceptable; Oxygen 21% %; Source Right Brachial
--- NOTE | 2021-09-30 14:58 | PC.NURSE ---
rounds on patient. patient asleep sitting up in bed. no family at bedside.
[2021-09-30 17:16] LABS: POC Glucose,Bedside 214 (70-110)
--- NOTE | 2021-09-30 18:49 | PC.NURSE ---
No acute changes. VS stable and patient remained on room air. Patient ambulated several times during day and left the floor a couple of times with family. Gladys held per cardiology for heart cath tomorrow.
--- NOTE | 2021-09-30 21:01 | PC.NURSE ---
rounded on pt. pt used the bathroom independently. I asked pt if they needed anything else at this time they replied no. will continue to check on pt.
[2021-09-30 21:14] LABS: POC Glucose,Bedside 280 (70-110)
--- NOTE | 2021-09-30 23:11 | PC.NURSE ---
2230: PT ARRIVED TO ROOM 280. LUNGS ASSESSED WITH FINE CRACKLES IN BILATERAL BASES. PT DENIES CP OR SOA. O2 NC @2L AT BEDSIDE FOR PRN USE. PT WITH PREVIOUS HX OF CABG WITH SCAR VISIBLE TO CHEST. TELEMETRY REMAINS IN PLACE READING SINUS TACHYCARDIA. TRACE PEDAL EDEMA NOTED WELL REDDNESS TO R ANKLE. CALL LIGHT EXPLAINED AND WITHIN REACH. PT ORIENTED TO ROOM. V/U AND CONTINUES TO BE A&OX4. WILL CONTINUE TO MONITOR.
[2021-10-01] VITALS (16 sets, daily range): BP systolic 125–160; BP diastolic 79–110; PULSE 68–110; RESP 16–18; TEMP 36.4–36.7; O2SAT 90–97; BMI 30.8
--- NOTE | 2021-10-01 | IR_ITS ---
APPROVED REPORT Patient Location: Inpatient Computer Repair Technician: KEREN Parra RT (R) PROCEDURES Left heart catheterization Left ventriculogram Selective coronary angiogram Catheter placed to the left subclavian artery with left subclavian artery angiography followed by left internal mammary angiography Selective engagement of the saphenous vein graft to the circumflex artery Selective gauge in the saphenous vein graft to the dominant right coronary Catheter placement in the left common iliac artery Left common iliac artery retrograde angiogram INDICATION Non-ST elevation myocardial infarction, Coronary artery disease, History of coronary bypass surgery, Peripheral artery disease, Left subclavian stenosis, Left common iliac peripheral artery disease, Informed consent was obtained prior to the procedure. COMPLICATIONS None Estimated Blood Loss: Less than 10 mls TECHNIQUE 1% lidocaine used anesthetize the left groin the left femoral artery was accessed via Salinger technique and a 5 Albanian sheath was placed in left femoral artery. JL 4 catheter was necessary to allow passage of the wire through the iliofemoral artery due to calcification and tortuosity as well as a previous graft in the left femoral artery. A JL 4 catheter was used to perform selective coronary angiography. Following this a mini exchange technique was performed and the JR4 catheter was used to perform left subclavian angiography with nonselective engagement of the left internal mammary artery as well as selective engagement of the 2 vein grafts as well as left heart catheterization and additional selective coronary angiography involving the right coronary. At the end of the procedure the catheter was pulled back to the left common iliac artery and angiography was performed. At the end the procedure the sheath was removed and hemostasis achieved and TR banding patient was transferred to the postop putting in stable condition ANGIOGRAPHIC RESULTS The left main artery Is patent The left anterior descending artery Has proximal concentric 70 to 80% calcified stenosis followed by additional 40% stenoses followed by additional mid vessel 40 to 50% and 60 and 70% stenoses. There is competitive flow from a patent left internal mammary graft The circumflex artery Ostially occluded The right coronary artery Dominant ostially occluded The HELM ventriculogram reveals Preserved at 50% with mild inferior wall hypokinesis The left ventricular end-diastolic pressure 10 mmHg Left subclavian artery is heavily calcified and has at least a 50% stenosis. Left internal mammary artery has a long dissection in the proximal segment which appears to be 40 mm in length. This is nonflow limiting and has nice antegrade flow into a patent mid LAD Saphenous to circumflex arteries widely patent Saphenous to dominant right coronary widely patent Left common iliac artery has a stent which is patent with significant external calcification. The left external iliac artery is heavily calcified. There appears to be a [place]-Gil graft in the left common femoral artery which makes this anastomosis distally. The SFA and profundus are both proximally patent IMPRESSION Dense calcification involving the proximal and mid LAD as described above. 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 Severe and dense calcification in the transverse aorta Patent vein graft to the circumflex artery and right coronary artery as described above Preserved ejection fraction Normal left ventricular end-diastolic pressure Left common iliof
--- NOTE | 2021-10-01 04:05 | PC.NURSE ---
NO ACUTE CHANGES FROM PREVIOUS ASSESSMENT. PT HAS RESTED WELL THIS SHIFT WITH NO C/O VOICED. PT HAS BEEN NPO SINCE MIDNIGHT FOR SCHEDULED HEART CATH TODAY 10/01. LUNGS CONTINUE TO HAVE BIBASILAR FINE CRACKLES. PT DENIES CP OR SOA. TELEMETRY REMAINS IN PLACE PER ORDERS. VSS. NASAL CANNULA @2L REMAINS AT BEDSIDE PRN (PT USES PRN AT HOME). CALL LIGHT REMAINS WITHIN REACH, BED LOCKED AND IN LOWEST POSITION. WILL CONTINUE TO MONITOR.
[2021-10-01 06:53] LABS: POC Glucose,Bedside 185 (70-110)
[2021-10-01 07:05] LABS: Basophils % 0.2 % (0.1-2.0); Eosinophils # 0.1 K/mm3 (0.0-0.4); Eosinophils % 0.6 % (0.1-12.0); Hematocrit 37.8 % (37.0-47.0); Hemoglobin 10.7 g/dL (12.2-16.2); Lymphocytes # 1.1 K/mm3 (0.7-4.5); Lymphocytes % 7.8 % (10-50); Mean Corpuscular HGB Conc 28.2 g/dL (31.8-35.4); Mean Corpuscular Hemoglobin 23.5 pg (27.0-31.2); Mean Corpuscular Volume 83.2 fl (81-99); Mean Platelet Volume 8.4 fl (7.4-10.4); Monocytes # 0.7 K/mm3 (0.1-1.0); Monocytes % 4.7 % (1.7-9.3); Neutrophils % 86.8 % (37.0-80.0); Platelet Count 467 K/mm3 (142-424); Red Blood Count 4.54 M/mm3 (4.20-5.40); White Blood Count 13.9 K/mm3 (4.8-10.8)
[2021-10-01 07:09] LABS: Blood Urea Nitrogen 28 mg/dl (7-17); Calcium 8.4 mg/dl (8.4-10.2); Carbon Dioxide 32 mmol/L (22.0-30.0); Chloride 99 mmol/L (98-107); Creatinine Clearance Estimated 69 mL/min (50-200); Estimated Glomerular Filt Rate 85 ml/min (>60); GFR (African American) 102 ML/MIN (>60); Glucose 187 mg/dl (74-100); MANUAL DIFFERENTIAL MANUAL DIFFERENTIAL (MANUAL DIFF); Sodium 135 mmol/L (136-145)
[2021-10-01 07:46] LABS: Hypochromasia 1+; Lymphocytes % 11 % (10-50); Microcytosis 1+; Monocytes % 4 % (2-9); Neutrophils % 85 % (42-76); Platelet Estimate Normal; Total Cells Counted 100
--- NOTE | 2021-10-01 09:32 | HMH.PNCARD ---
Subjective Date: 10/01/21 Time: 08:00 Principal diagnosis: NSTEMI Interval history: 61-year-old white female in bed in no acute distress. Plan is for left heart catheterization today with grafts by femoral approach. Exam Vital signs and Labs for Last 24 Hours: Temp Pulse Resp BP Pulse Ox 98.0 F 68 18 150/91 H 94 L 10/01/21 08:00 10/01/21 08:00 10/01/21 08:00 10/01/21 08:00 10/01/21 08:00 Laboratory Results - last 24 hr 09/30/21 10:43: Specimen Source Right brachial, O2 % 21%, ABG pH 7.46 H, ABG pCO2 43.6, ABG pO2 59.4 L, ABG HCO3 30.0 H, ABG Total CO2 31.4 H, ABG O2 Saturation 90, ABG Base Excess 6.1 H, Babatunde Test Acceptable 09/30/21 16:50: POC Glucose 214 H 09/30/21 21:03: POC Glucose 280 H 10/01/21 06:44: POC Glucose 185 H 10/01/21 06:54: WBC 13.9 H, RBC 4.54, Hgb 10.7 L, Hct 37.8, MCV 83.2, MCH 23.5 L, MCHC 28.2 L, RDW 18.0 H, Plt Count 467 H, MPV 8.4, Neut % (Auto) 86.8 H, Lymph % (Auto) 7.8 L, Burt % (Auto) 4.7, Eos % (Auto) 0.6, Baso % (Auto) 0.2, Neut # (Auto) 12.0 H, Lymph # (Auto) 1.1, Burt # (Auto) 0.7, Eos # (Auto) 0.1, Baso # (Auto) 0.0, Total Counted 100, Neutrophils % (Manual) 85 H, Lymphocytes % (Manual) 11, Monocytes % (Manual) 4, Platelet Estimate Normal, Hypochromasia 1+, Microcytosis 1+ 10/01/21 06:54: Sodium 135 L, Potassium 4.0, Chloride 99, Carbon Dioxide 32 H, Anion Gap 8.0, BUN 28 H, Creatinine 0.70, Estimated Creat Clear 69, Estimated GFR 85, Est GFR ( Amer) 102, Glucose 187 H, Calcium 8.4 I & O for Last 24 hours: Intake & Output 09/28/21 09/29/21 09/30/21 10/01/21 11:59 11:59 11:59 11:59 Intake Total 1080 / 1080 720 / 720 720 / 720 510 / 510 Output Total 650 / 650 4500 / 4500 200 / 200 Balance 430 / 430 -3780 / -3780 520 / 520 510 / 510 Weight 170 lb 6.4 oz 168 lb 11.2 oz 167 lb 6.4 oz 167 lb 6.387 oz - Constitutional no acute distress - *Routine Respiratory Exam Present: CTA bilaterally - *Routine Cardiovascular Exam Present: RRR - *Routine Extremities Exam Absent: cyanosis, clubbing, edema - *Routine Neurological Exam Present: alert, oriented X3 Progress Note: A&P (1) Atrial fibrillation Status: Acute (2) COPD with acute exacerbation Status: Acute (3) Obesity (BMI 30.0-34.9) Status: Acute (4) Osteopenia determined by x-ray Status: Acute (5) Anemia Status: Acute (6) Thrombocytosis Status: Acute (7) Diabetes mellitus Status: Acute (8) CHF (congestive heart failure) Status: Acute (9) CAD (coronary artery disease) Status: Acute (10) History of coronary artery bypass graft x 3 Status: Acute (11) History of right-sided carotid endarterectomy Status: Acute (12) NSTEMI (non-ST elevated myocardial infarction) Status: Acute Assessment and Plan for All Diagnoses:: 1. Non-ST elevation [place] with elevated troponins in a patient with prior bypass and coronary stenting. Plan cardiac catheterization today by groin access after holding her Eliquis yesterday. Possibly home this evening or in AM. 2. Cardiomyopathy with EF of 40-45%, patient is on ALBA inhibitor and beta-isidoro therapy 3. Elevated BNP with history of systolic congestive heart failure, continue to monitor Intake/Output. Lasix/potassium held due to elevated BUN and plans for C. No evidence of CHF on chest x-ray. Likely related to pneumonia and possibly diastolic dysfunction. 4. Pneumonia with elevated WBC, patient is on antibiotic therapy 5. CAD with prior CABG x3 approximately 1999 6. Atrial fibrillation, resume eliquis in AM. 7. Peripheral vascular disease with prior right CEA 8. Psychiatric disorder, on abilify 9. Anemia, stable. Likely chronic 10. Chronic tobacco use, use Nicotine patch if needed. 11. Diabetes mellitus, on insulin therapy
--- NOTE | 2021-10-01 09:55 | PC.NURSE ---
07:55 Charles Bullard in room, speaking with pt.
--- NOTE | 2021-10-01 09:55 | PC.NURSE ---
09:10 - Report called to Alma MATHIS
--- NOTE | 2021-10-01 09:57 | PC.NURSE ---
09:12 Pt. and belongings to room 208.
--- NOTE | 2021-10-01 10:15 | HMH.PULMPN ---
Internal Medicine - PN: Subj *Date: 10/01/21 *Time: 12:48 Interval history: No acute respiratory vents overnight. Patient continues to remain on room air. Exam - Constitutional Constitutional:: Present: no acute distress, comfortable - HENMT Exam HENMT: Present: normocephalic - Eye Exam Eyes:: Present: normal appearance both eyes and related structures - Neck Exam Neck:: Present: normal visual inspection - Respiratory Exam Respiratory:: Present: able to speak in complete sentences, no respiratory distress. Absent: wheezing - Cardiovascular Exam Cardiac:: Present: S1, S2 - GI Exam GI:: Present: soft - Skin Exam Skin: Present: warm, no rash - Neurological Exam Neurological: Present: alert, awake - Extremities Exam Extremities: Present: no cyanosis, no clubbing Assessment and Plan (1) Atrial fibrillation Status: Acute Qualifiers: Atrial fibrillation type: longstanding persistent Qualified Code(s): I48.11 - Longstanding persistent atrial fibrillation Category: Medical Code(s): I48.91 - Unspecified atrial fibrillation (2) COPD with acute exacerbation Status: Acute Category: Medical Code(s): J44.1 - Chronic obstructive pulmonary disease with (acute) exacerbation (3) Obesity (BMI 30.0-34.9) Status: Acute Category: Medical Code(s): E66.9 - Obesity, unspecified (4) Osteopenia determined by x-ray Status: Acute Category: Medical Code(s): M85.80 - Other specified disorders of bone density and structure, unspecified site (5) Anemia Status: Acute Qualifiers: Anemia type: unspecified type Qualified Code(s): D64.9 - Anemia, unspecified Category: Medical Code(s): D64.9 - Anemia, unspecified (6) Thrombocytosis Status: Acute Category: Medical Code(s): D75.839 - Thrombocytosis, unspecified (7) Diabetes mellitus Status: Acute Qualifiers: Diabetes mellitus type: type 2 Diabetes mellitus fdc insulin use: unspecified fdc insulin use status Diabetes mellitus complication status: with other specified complication Qualified Code(s): E11.69 - Type 2 diabetes mellitus with other specified complication Category: Medical Code(s): E11.9 - Type 2 diabetes mellitus without complications (8) CHF (congestive heart failure) Status: Acute Qualifiers: Heart failure type: unspecified Heart failure chronicity: acute Qualified Code(s): I50.9 - Heart failure, unspecified Category: Medical Code(s): I50.9 - Heart failure, unspecified (9) CAD (coronary artery disease) Status: Acute Category: Medical Code(s): I25.10 - Atherosclerotic heart disease of [place] coronary artery without angina pectoris (10) History of coronary artery bypass graft x 3 Status: Acute Category: Surgical Code(s): Z95.1 - Presence of aortocoronary bypass graft (11) History of right-sided carotid endarterectomy Status: Acute Category: Surgical Code(s): Z98.890 - Other specified postprocedural states (12) NSTEMI (non-ST elevated myocardial infarction) Status: Acute Category: Medical Code(s): I21.4 - Non-ST elevation (NSTEMI) myocardial infarction - Assessment and plan all Dx Assessment and Plan for all problems:: #Community-acquired pneumonia: #COPD exacerbation: Ms. Galindo is a 61-year-old female history of COPD, greater than 83-fhzr-vort smoking history, on Breo inhaler baseline, not needing any oxygen at baseline, CAD cardiac bypass COPD atrial fibrillation, on anticoagulation presented to hospital worsening respiratory distress and pulmonary was called for further management. Chest x-ray on admission concerning for right lower lobe airspace disease. COVID-19 and flu PCR negative. Afebrile. Leukocytosis on admission improving. Patient was initiated on levofloxacin and methylprednisolone on admission. Initial examination patient does not appear to be in any respiratory distress. On room air saturating 92% above. No signi
--- NOTE | 2021-10-01 10:54 | HMH.ACPN ---
Internal Medicine - PN: Subj *Date: 10/01/21 *Time: 10:54 Exam Vital signs and Labs for Last 24 Hours: Temp Pulse Resp BP Pulse Ox 98.0 F 68 18 150/91 H 94 L 10/01/21 08:00 10/01/21 08:00 10/01/21 08:00 10/01/21 08:00 10/01/21 08:00 Laboratory Results - last 24 hr 09/30/21 10:43: Specimen Source Right brachial, O2 % 21%, ABG pH 7.46 H, ABG pCO2 43.6, ABG pO2 59.4 L, ABG HCO3 30.0 H, ABG Total CO2 31.4 H, ABG O2 Saturation 90, ABG Base Excess 6.1 H, Babatunde Test Acceptable 09/30/21 16:50: POC Glucose 214 H 09/30/21 21:03: POC Glucose 280 H 10/01/21 06:44: POC Glucose 185 H 10/01/21 06:54: WBC 13.9 H, RBC 4.54, Hgb 10.7 L, Hct 37.8, MCV 83.2, MCH 23.5 L, MCHC 28.2 L, RDW 18.0 H, Plt Count 467 H, MPV 8.4, Neut % (Auto) 86.8 H, Lymph % (Auto) 7.8 L, Lares % (Auto) 4.7, Eos % (Auto) 0.6, Baso % (Auto) 0.2, Neut # (Auto) 12.0 H, Lymph # (Auto) 1.1, Lares # (Auto) 0.7, Eos # (Auto) 0.1, Baso # (Auto) 0.0, Total Counted 100, Neutrophils % (Manual) 85 H, Lymphocytes % (Manual) 11, Monocytes % (Manual) 4, Platelet Estimate Normal, Hypochromasia 1+, Microcytosis 1+ 10/01/21 06:54: Sodium 135 L, Potassium 4.0, Chloride 99, Carbon Dioxide 32 H, Anion Gap 8.0, BUN 28 H, Creatinine 0.70, Estimated Creat Clear 69, Estimated GFR 85, Est GFR ( Amer) 102, Glucose 187 H, Calcium 8.4 I & O for Last 24 hours: Intake & Output 07/03/09/29/21 09/30/21 10/01/21 23:59 23:59 23:59 23:59 Intake Total 720 / 720 720 / 960 600 / 600 150 / 150 Output Total 1999 2700 / 2700 Balance -1280 / -1280 -1979 / -174 600 / 600 150 / 150 Weight 77.292 kg 75.9 kg 75.931 kg 75.931 kg Assessment and Plan (1) Atrial fibrillation Status: Acute Qualifiers: Atrial fibrillation type: longstanding persistent Qualified Code(s): I48.11 - Longstanding persistent atrial fibrillation Category: Medical Code(s): I48.91 - Unspecified atrial fibrillation (2) COPD with acute exacerbation Status: Acute Category: Medical Code(s): J44.1 - Chronic obstructive pulmonary disease with (acute) exacerbation (3) Obesity (BMI 30.0-34.9) Status: Acute Category: Medical Code(s): E66.9 - Obesity, unspecified (4) Osteopenia determined by x-ray Status: Acute Category: Medical Code(s): M85.80 - Other specified disorders of bone density and structure, unspecified site (5) Anemia Status: Acute Qualifiers: Anemia type: unspecified type Qualified Code(s): D64.9 - Anemia, unspecified Category: Medical Code(s): D64.9 - Anemia, unspecified (6) Thrombocytosis Status: Acute Category: Medical Code(s): D75.839 - Thrombocytosis, unspecified (7) Diabetes mellitus Status: Acute Qualifiers: Diabetes mellitus type: type 2 Diabetes mellitus buttermaker insulin use: unspecified care home insulin use status Diabetes mellitus complication status: with other specified complication Qualified Code(s): E11.69 - Type 2 diabetes mellitus with other specified complication Category: Medical Code(s): E11.9 - Type 2 diabetes mellitus without complications (8) CHF (congestive heart failure) Status: Acute Qualifiers: Heart failure type: unspecified Heart failure chronicity: acute Qualified Code(s): I50.9 - Heart failure, unspecified Category: Medical Code(s): I50.9 - Heart failure, unspecified (9) CAD (coronary artery disease) Status: Acute Category: Medical Code(s): I25.10 - Atherosclerotic heart disease of [place] coronary artery without angina pectoris (10) History of coronary artery bypass graft x 3 Status: Acute Category: Surgical Code(s): Z95.1 - Presence of aortocoronary bypass graft (11) History of right-sided carotid endarterectomy Status: Acute Category: Surgical Code(s): Z98.890 - Other specified postprocedural states (12) NSTEMI (non-ST elevated myocardial infarction) Status: Acute Category: Medical Code(s): I21.4 - Non-ST elevation (NSTEMI) myocardial infa
[2021-10-01 11:39] LABS: POC Glucose,Bedside 198 (70-110)
--- NOTE | 2021-10-01 12:10 | PC.NURSE ---
pt to cathlab
--- NOTE | 2021-10-01 14:00 | PC.NURSE ---
[facility]
--- NOTE | 2021-10-01 17:09 | HMH.DCSUM ---
General - General Admission date:: 09/26/21 Discharge date: 10/01/21 HPI HPI: this patient was seen at [facility] -with sob and weakness and noted to have elevated trop and was transferred to [facility] for card eval - per dr ziegler- pt with hx of cad and had cabg in past and ht cath in 2020 at [facility] with no reported stents - will try to obtain records- has tob use and a fib and diabetes - pt admitted for eval and treatment Hospital Course Hospital Course: 61-year-old female patient seen at [facility] for shortness of breath and weakness, was also noted to have elevated troponin. Patient was then transferred to [facility] for cardiac evaluation per Dr. Ziegler. She does have a history of CAD with a CABG in the past and that heart cath in 2020 at [facility], she denies having stents placed at that time. She does report tobacco use, history of A. fib, and history of diabetes 10/01/21 cardiac catheterization: ANGIOGRAPHIC RESULTS The left main artery Is patent The left anterior descending artery Has proximal concentric 70 to 80% calcified stenosis followed by additional 40% stenoses followed by additional mid vessel 40 to 50% and 60 and 70% stenoses. There is competitive flow from a patent left internal mammary graft The circumflex artery Ostially occluded The right coronary artery Dominant ostially occluded The HELM ventriculogram reveals Preserved at 50% with mild inferior wall hypokinesis The left ventricular end-diastolic pressure 10 mmHg Left subclavian artery is heavily calcified and has at least a 50% stenosis. Left internal mammary artery has a long dissection in the proximal segment which appears to be 40 mm in length. This is nonflow limiting and has nice antegrade flow into a patent mid LAD Saphenous to circumflex arteries widely patent Saphenous to dominant right coronary widely patent Left common iliac artery has a stent which is patent with significant external calcification. The left external iliac artery is heavily calcified. There appears to be a Spring-Gil graft in the left common femoral artery which makes this anastomosis distally. The SFA and profundus are both proximally patent IMPRESSION Dense calcification involving the proximal and mid LAD as described above. 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 Severe and dense calcification in the transverse aorta Patent vein graft to the circumflex artery and right coronary artery as described above Preserved ejection fraction Normal left ventricular end-diastolic pressure Left common iliofemoral disease as described above PLAN 1. At this point I recommend medical management. Patient does have [place] LAD disease however there is antegrade flow into the [place] and distal LAD combined with competitive flow from the left internal mammary artery. Although this left subclavian artery is calcified and an nonflow limiting dissection is identified in the left internal mammary artery patient still has a dual arterial supply to the distal LAD. Because of this I do not recommend stenting the left subclavian artery. First an 8 Somali sheath would have to be placed into a Spring-Gil graft. The transverse aorta is heavily calcified as is the left subclavian artery. There is a high likelihood of distal embolization from this friable heavily calcified lesion in which the left vertebral artery makes a straight shot intracranially and I believe the risk of embolization would be high. 2. Recommend exercise Myoview to determine if the anterior wall is ischemic. Because of the dual arterial supply I suspect the anterior wall is appropriately perfused 3. Aggressive medical management 4. Aggressive risk factor modification Electronically signed by : August Ziegler MD
--- NOTE | 2021-10-01 18:18 | PC.NURSE ---
pt has been pleasant t/o shift, went to carpenter/labor at 1210 returned with no complications and dsg cdi over left groin. vss. recieved d/c orders, d/c packet information and instructions went over with pt, daughter was at bedside, no questions or concerns. iv in right ac and forearm removed. SRNA assisted PT to daughters car by wheelchair.
[2021-10-01 21:07] LABS: POC Glucose,Bedside 239 (70-110)
--- NOTE | 2021-10-06 13:57 | CARE MANAGER ---
Attempted to contact patient x 3 related to hospital discharge. No answer. SOPHIE [place]
== END 2021-10-01 18:16 | disposition home or self-care (01) ==
LOC: ER 20:06 → 2ND 20:37 → OB 09-30 21:33 → 2ND 10-01 09:10
PROVIDERS: Internal Medicine; Internal Medicine Pulmonary Disease; Nurse Practitioner Family; Admitting Provider Emergency Medicine; Emergency Provider Emergency Medicine; PCP Emergency Medicine; Visit Provider Emergency Medicine
DX: I21.4 Non-ST elevation (NSTEMI) myocardial infarction (principal); I48.11 Longstanding persistent atrial fibrillation; Z95.1 Presence of aortocoronary bypass graft; Z20.822 Contact with and (suspected) exposure to COVID-19; E11.9 Type 2 diabetes mellitus without complications; Z79.4 Long term (current) use of insulin; Z79.01 Long term (current) use of anticoagulants; I25.10 Atherosclerotic heart disease of native coronary artery without angina pectoris; F17.210 Nicotine dependence, cigarettes, uncomplicated; J44.1 Chronic obstructive pulmonary disease with (acute) exacerbation; J18.9 Pneumonia, unspecified organism; I42.9 Cardiomyopathy, unspecified; M85.80 Other specified disorders of bone density and structure, unspecified site; D64.9 Anemia, unspecified; I70.212 Atherosclerosis of native arteries of extremities with intermittent claudication, left leg; I65.22 Occlusion and stenosis of left carotid artery
CPT/HCPCS: G0378; 36415; 71046; 80048; 80053; 81001; 82803; 82962; 83880; 84436; 84443; 84484; 85007; 85025; 93005; 93306; 93459; 94640; 94761; 99152; 99153; 99285; C1725; C1769; C1894; C9803; G0278; J1644; J1956; Q9967; U0003; U0005

== ENCOUNTER → 2021-10-14 11:47 | Outpatient (CLI) | payer MEDICARE, SELFPAY ==
--- NOTE | 2021-10-14 12:37 | NM_ITS ---
APPROVED REPORT Exam: Nuclear Stress Test Indication: Chest pain, SOB, Fatigue, CAD, DM, High cholesterol, Tobacco use, Family history Patient Location: Outpatient Stress Tech: Ruthann Vasquez [place] Tech:Mary Sparrow, ARRT, RT (R)(N) Ht: 5 ft 3 in Wt: 165 lbs Bra Size: B HR: 68 bpm BP: 114/72 mmHg BSA: 1.78 m2 TID: 1.15 BMI: 29.2 History: Chest pain, SOB, Fatigue, CAD, DM, High cholesterol, Tobacco use, Family history Procedure: Patient received a 0.4 mg of intravenous Lexiscan, resting heart rate 68 bpm, resting blood pressure 114/72 mmHg, with Lexiscan maximum heart rate achived was 89 bpm which is 85 % of the maximum predicted heart rate and blood pressure was 114/72 mmHg. With Lexiscan, patient denied any complaint of chest pain. Electrocardiogram Resting electrocardiogram shows atrial flutter, with Lexiscan less than 1.[address] segment depression noted from the baseline EKG. The EKG portion of the Lexiscan is nondiagnostic. Cardiac Stress and Resting SPECT Images: Cardiac Stress and Resting SPECT images were obtained using technetium 99m Myoview 32.6 mCi stress and 10.35 mCi at rest. Gated SPECT analysis of segmental wall motion and calculation of the ejection fraction also done. Cardiac stress and resting SPECT images show uniform myocardial activity without segmental perfusion abnormality, computer derived ejection fraction of 35% with left ventricular global hypokinesis. Right ventricle is normal size and contractility. Conclusion: 1. The EKG portion of the Lexiscan is nondiagnostic. 2. No scintigraphic evidence of reversible ischemia seen, computer derived ejection fraction of 35% with left ventricular global hypokinesis, right ventricle is normal size and contractility. 3. Abnormal Lexiscan Myoview study due to low ejection fraction. Electronically signed by : Héctor Gutierrez MD 10/14/2021 21:43:58
--- NOTE | 2021-10-14 13:32 | HMH.ITSHM ---
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 []PREDNISONE METOPROLOL LEVOFLOXACIN DIGOXIN CLOPIDOGREL TRAZODONE POTASSIUM PIOGLITAZONE PAROXETINE METFORMIN MAGNESIUM INSULIN FUROSEMIDE BREO ATORVASTATIN APIXABAN ALBUTEROL ARIPIPRAZOLE
--- NOTE | 2021-10-14 13:53 | CA_ITS ---
APPROVED REPORT Exam: Pharmacologic Technologist: Ruthann Bernstein, Ht: 5 ft 3 in Wt: 165 lbs BSA: 1.78 m2 HR: 65 bpm BP: 114/72 mmHg Medical History Medications: Metformin,,,,, Metformin,,,,, Atorvastatin,,,,, Pioglitazone,,,,, INSULIN,,,,, Albuterol,,,,, Digoxin,,,,, CloPIdogrel,,,,, Prednisone,,,,, PaROXETINE,,,,, Trazodone,,,,, Levofloxacin,,,,, Stress Test Details Test: LEXISCAN Reason for pharmacologic stress test: physical limitation. Reversal agent Aminophyline 100.0 mg, given intravenously for other. HR Resting HR: 68 bpm Max Heart Rate (APMHR): 157.144250 bpm Max HR Achieved: 89 bpm Target HR (85% APMHR): 133.701375 bpm % of APMHR: 56.69 Recovery HR: 70 bpm BP Resting BP: 114/72 mmHg Max BP: 114/72 mmHg Recovery BP: 105.0/66.0 mmHg ECG Resting ECG: A flutter with variable AV conduction, PVCs vs aberrantly conducted beat, ST-T abns Clinical Exercise duration: 04:00 min Highest Stage Achieved: Stress ECG Conclusion SOA Light-headed Aminophylline 100mg slow IV given 9:30 sxs gone BP better/stable Symptoms: SOA, wheezing, mildly light-headed. No CP. Arrhythmias/Ectopy: Occ PVc vs oberrant beat ST-T Changes: Exaggeration of baseline ST-T abns. Conclusion: Non-diagnostic Lexiscan stress. Myoview images reported separately. Test Summary REST . . . . . . . Resting REST 03:02 . . 68 . 114/ 72 . . Stage 1 . . . . . . . Myoview Injected Stage 1 01:00 . . 77 . . . . Stage 2 01:00 . . 82 . . . . Stage 3 01:00 . . 66 . 89/ 63 . . Stage 4 01:00 . . 78 . 92/ 60 . Stop exercise at 04:00 RECOVERY 01:00 . . 78 . 98/ 66 . . RECOVERY 02:00 . . 78 . 98/ 66 . . RECOVERY 03:00 . . 70 . 98/ 66 . . RECOVERY 04:00 . . 70 . 89/ 54 . . RECOVERY 05:00 . . 79 . 93/ 60 . . RECOVERY 06:00 . . 75 . 93/ 60 . . RECOVERY 07:00 . . 76 . 104/ 69 . . RECOVERY 08:00 . . 69 . 99/ 60 . . RECOVERY 09:00 . . 65 . 99/ 60 . . RECOVERY 09:48 . . 74 . 105/ 66 . . Electronically signed by : Héctor Gutierrez MD 10/14/2021 21:41:25
== END ==
LOC: RAD 11:49
PROVIDERS: PCP Emergency Medicine; Visit Provider Nurse Practitioner Family
DX: D64.9 Anemia, unspecified (principal); E11.9 Type 2 diabetes mellitus without complications; E66.9 Obesity, unspecified; I21.4 Non-ST elevation (NSTEMI) myocardial infarction; I25.10 Atherosclerotic heart disease of native coronary artery without angina pectoris; I48.91 Unspecified atrial fibrillation; I50.9 Heart failure, unspecified; I95.9 Hypotension, unspecified; J44.1 Chronic obstructive pulmonary disease with (acute) exacerbation; R00.0 Tachycardia, unspecified; Z95.1 Presence of aortocoronary bypass graft; Z98.890 Other specified postprocedural states; Z79.84 Long term (current) use of oral hypoglycemic drugs
CPT/HCPCS: 78452; 93017; A9502; J0280; J2785

== ENCOUNTER → 2021-10-30 13:05 | Outpatient (CLI) | payer MEDICARE, SELFPAY ==
--- NOTE | 2021-10-30 13:09 | NM_ITS ---
APPROVED REPORT NM Technologist: KEREN Bae, RT (R)(N) Indication Congestive Heart Failure Procedure The above named patient was injected with 25.4 mCi of Tc99m tagged red blood cells. Gated imaging was then performed in left anterior oblique projections. Impression 1. Resting MUGA scan showed an ejection fraction of 47% with mild left ventricular global hypokinesis. Conclusion 1. Resting MUGA scan showed an ejection fraction of 47% with mild left ventricular global hypokinesis. Electronically signed by : Héctor Gutierrez MD 10/31/2021 14:27:08
== END ==
LOC: RAD 13:06
PROVIDERS: PCP Emergency Medicine; Visit Provider Nurse Practitioner
DX: I50.31 Acute diastolic (congestive) heart failure (principal)
CPT/HCPCS: 78473; A9512; A9560

== ENCOUNTER 2021-12-10 08:56 | Observation (INO) | payer MEDICARE, SELFPAY ==
[2021-12-10] VITALS (10 sets, daily range): BP systolic 70–96; BP diastolic 48–63; PULSE 79–90; RESP 16–20; TEMP 36.4–36.8; O2SAT 92–97; BMI 28.9
--- NOTE | 2021-12-10 08:58 | PC.NURSE ---
Clarified with Dr. Niño's office if patient was to be admitted to Med-Surg or Stepdown. Per Rachel in Cardiology clinic, patient is to be admitted to Med-Surg.
[2021-12-10 10:56] LABS: Coronavirus 19, PCR Not Detected (NotDetected); Influenza A, PCR Not Detected (NotDetected); Influenza B, PCR Not Detected (NotDetected)
--- NOTE | 2021-12-10 11:47 | EXP.HP ---
[facility] Medical History Abnormal electrocardiography Dyspnea Hypotension Sinus tachycardia Social History Smoking Status: Current every day smoker tobacco type: cigarettes packs per day: 1 alcohol intake: never current occupational status: retired Travel in the last 8 weeks: Inside the [place] household members: family caffeine: No Meds Home Medications and Allergies Home Medications Medication Instructions Recorded Confirmed Type apixaban 5 mg (74 tabs) tablets in 5 mg PO BID Blood thinner 09/26/21 12/10/21 History a dose pack aripiprazole 5 mg tablet 5 mg PO DAILY Depression 09/26/21 12/10/21 History atorvastatin 80 mg tablet 80 mg PO HS Cholesterol 09/26/21 12/10/21 History metformin 1,000 mg tablet 1,000 mg PO BID Diabetes 09/26/21 12/10/21 History paroxetine HCl 40 mg tablet 40 mg PO DAILY Depression 09/26/21 12/10/21 History trazodone 150 mg tablet 150 mg PO HS sleep 09/26/21 12/10/21 History insulin glargine 100 unit/mL (3 50 units SQ HS Diabetes 09/27/21 12/10/21 History mL) subcutaneous pen magnesium oxide 400 mg (241.3 mg 400 mg PO DAILY Supplement 09/27/21 12/10/21 History magnesium) tablet pioglitazone 15 mg tablet 15 mg PO DAILYDM Diabetes 09/27/21 12/10/21 History albuterol sulfate 90 mcg/actuation 8.5 gm inhalation Q4-6H PRN 10/01/21 12/10/21 Rx aerosol inhaler Shortness Of Breath Or Wheezing 28 days #1 ea potassium chloride 20 mEq 20 meq PO DAILY Supplement ##0 10/01/21 12/10/21 Rx tablet,extended release clopidogrel 75 mg tablet 75 mg PO DAILY Blood thinner 10/08/21 12/10/21 History metoprolol tartrate 50 mg tablet 25 mg PO BID Hypertension #60 tabs 11/05/21 12/10/21 Rx digoxin 125 mcg (0.125 mg) tablet 125 mcg PO DAILY heart function 12/10/21 12/10/21 History fluticasone fur. 100 mcg-umeclid 1 puff IH DAILY soa 12/10/21 12/10/21 History 62.5 mcg-vilant 25 mcg inhalat.powder furosemide 20 mg tablet 40 mg PO DAILY Fluid 12/10/21 12/10/21 History prednisone 20 mg tablet 40 mg PO DAILY swelling 12/10/21 12/10/21 History New Prescriptions to Start Prescriptions: Allergies Allergy/AdvReac Type Severity Reaction Status Date / Time No Known Allergies Allergy Verified 12/10/21 08:13 Exam Data for Last 24 hours Vital signs and Labs for Last 24 Hours: Temp Pulse Resp BP Pulse Ox 98.0 F 81 17 85/53 L 92 L 12/10/21 11:01 12/10/21 11:01 12/10/21 11:01 12/10/21 11:01 12/10/21 11:01 I & O for Last 24 hours: Intake & Output 12/07/21 12/08/21 12/09/21 12/10/21 23:59 23:59 23:59 23:59 Output Total 0 / 0 Balance 0 / 0 Weight 163 lb 7 oz
--- NOTE | 2021-12-10 13:00 | PC.NURSE ---
spoke to kathia meléndez. she states plan is for patient to be transferred to [facility] in [place]. asked about any specific orders and she stated at this time no orders, no meds or fluids needed. admission orders would be per gustavo
--- NOTE | 2021-12-10 13:29 | EXP.HPDC ---
General Admission date:: 12/10/21 Discharge date: 12/10/21 *Admission Date: 12/10/21 *Chief complaint: Fatigue *History of present illness: 61-year-old female patient admitted from cardiology clinic after appointment for reports of fatigue. Patient's medications were adjusted last month for atrial fibrillation, she has been suffering with fatigue on during her appointment blood pressure was in the 90s systolic and EKG revealed AFib RVR STT wave abnormality abnormal ecg rate 104 bpm. PFSH PFS Medical History Abnormal electrocardiography Dyspnea Hypotension Sinus tachycardia Social History Smoking Status: Current every day smoker tobacco type: cigarettes packs per day: 1 alcohol intake: never current occupational status: retired Travel in the last 8 weeks: Inside the [place] household members: family caffeine: No Review of Systems Constitutional Constitutional: Reports system reviewed and no additional complaints, except as documented and Reports fatigue Eyes Eyes: Reports system reviewed and no additional complaints, except as documented ENT Ears, Nose, Mouth, and Throat: Reports system reviewed and no additional complaints, except as documented *Cardiovascular Cardiovascular: Reports system reviewed and no additional complaints, except as documented *Respiratory Respiratory: Reports system reviewed and no additional complaints, except as documented *Gastrointestinal Gastrointestinal: Reports system reviewed and no additional complaints, except as documented *Musculoskeletal Musculoskeletal: Reports system reviewed and no additional complaints, except as documented *Neurologic Neurologic: Reports system reviewed and no additional complaints, except as documented Psychiatric Psychiatric: Reports system reviewed and no additional complaints, except as documented Endocrine Endocrine: Reports fatigue Hematologic/Lymphatic Hematologic/Lymphatic: Reports system reviewed and no additional complaints, except as documented Allergic/Immunologic Allergic/Immunologic: Reports system reviewed and no additional complaints, except as documented Exam Data for Last 24 hours Vital signs and Labs for Last 24 Hours: Temp Pulse Resp BP Pulse Ox 98.0 F 81 17 85/53 L 92 L 12/10/21 11:01 12/10/21 11:01 12/10/21 11:01 12/10/21 11:01 12/10/21 11:01 Laboratory Results - last 24 hr 12/10/21 10:52: SARS-CoV-2 (PCR) Not detected, Influenza A Untype (PCR) Not detected, Influenza Type B (PCR) Not detected I & O for Last 24 hours: Intake & Output 12/07/21 12/08/21 12/09/21 12/10/21 23:59 23:59 23:59 23:59 Output Total 0 / 0 Balance 0 / 0 Weight 163 lb 7 oz Constitutional Constitutional: no acute distress *Routine HEENT Exam Head: Present normocephalic and atraumatic Eye: Present EOMI ENT: Present mucous membranes moist *Routine Neck Exam Neck: Present full ROM and trachea midline; Absent tracheal deviation *Routine Respiratory Exam Respiratory: Present CTA bilaterally; Absent accessory muscle use *Routine Cardiovascular Exam Cardiovascular: Present murmur, tachycardia and irregularly irregular *Routine Abdominal Exam Abdominal: Present soft and normoactive bowel sounds; Absent tenderness or firm *Routine Rectal Exam Rectal:: deferred *Routine Genitalia Exam Genitalia:: deferred *Routine Extremities Exam Extremities: Present full ROM; Absent calf tenderness *Routine Skin Exam Skin: Present intact and dry; Absent cyanosis *Routine Neurological Exam Neurological: Present oriented X3; Absent motor deficit or altered mental status Routine Psychiatric Exam Psychiatric: Present normal affect and normal thought process; Absent tactile hallucinations Meds Home Medications and Allergies Home Medications Medication Instructions Recorded Confirmed Type apixaban 5 mg (74 tabs) tablets in 5 mg
--- NOTE | 2021-12-10 13:56 | EXP.CARD.PN ---
Subjective Subjective Date: 12/10/21 Time: 11:30 Principal diagnosis: afib with rvr Interval history: Pt was seen in cardiology clinic today. Referred for hospital admission due to Afib with RVR and hypotension. See office note: Patient here for irregular heart beat, 140s at home. Had some yesterday cp & pressure at rest, 8/10, lasting 30 min SOB with activity? Dizziness & lightheadedness at anytime Swelling in feet & legs Denies numbness Fatigue Coronary artery disease is present and likely stable. 09/2021 NSTEMI with medical management for LAD. History of three-vessel bypass approximately History of coronary stenting approximately 2009 History of left heart catheterization approximately 2020, [facility] in [place], [place] with no need for intervention per patient. BP is low today. Patient weight up 2 lbs LDL goal is < 55. on high intensity statin. VINCE is present. History of right carotid endarterectomy with no prior history of CVA Cardiomyopathy with EF of 47% per MUGA. History of systolic congestive heart failure Atrial fibrillation, RVR, A/C with Eliquis, denies bleeding. History of DVT Anemia is stable.? Likely chronic. Diabetes mellitus is present, treated for about 15 years. Denies bleeding. RLE looks like cellulitis. Not alot of options for rate control with her low bp. Offered hospital admission, she is agreeable. PLAN: Admit Afib RVR/Hypotension RTC after Exam Data for Last 24 hours Vital signs and Labs for Last 24 Hours: Temp Pulse Resp BP Pulse Ox 98.0 F 90 17 96/63 L 92 L 12/10/21 11:01 12/10/21 12:50 12/10/21 11:01 12/10/21 12:50 12/10/21 11:01 Laboratory Results - last 24 hr 12/10/21 10:52: SARS-CoV-2 (PCR) Not detected, Influenza A Untype (PCR) Not detected, Influenza Type B (PCR) Not detected I & O for Last 24 hours: Intake & Output 12/07/21 12/08/21 12/09/21 12/10/21 23:59 23:59 23:59 23:59 Output Total 0 / 0 Balance 0 / 0 Weight 163 lb 7 oz Constitutional Constitutional: no acute distress, average body habitus and chronically ill appearing *Routine HEENT Exam Head: Present normocephalic and atraumatic ENT: Present mucous membranes moist *Routine Neck Exam Neck: Present supple, full ROM and normal carotid upstroke; Absent JVD, carotid bruit or lymphadenopathy *Routine Respiratory Exam Respiratory: Present CTA bilaterally, normal respiratory effort, able to speak in complete sentences and symmetric chest movement *Routine Cardiovascular Exam Cardiovascular: Present Normal S1, Normal S2, tachycardia and irregular rhythm; Absent murmur or gallop *Routine Abdominal Exam Abdominal: Present soft and normoactive bowel sounds; Absent tenderness, distended or organomegaly *Routine Extremities Exam Extremities: Present full ROM, pulses intact and normal capillary refill; Absent cyanosis, clubbing or edema *Routine Skin Exam Skin: Present intact and warm; Absent erythema *Routine Neurological Exam Neurological: Present alert, oriented X3 and CN II-XII intact; Absent sensory deficit or motor deficit Routine Psychiatric Exam Psychiatric: Present normal affect Progress Note: A&P Assessment and plan (1) Atrial fibrillation with RVR: Status: Acute (2) Hypotension: Status: Acute Assessment and Plan Assessment and Plan for All Diagnoses:: Plan: 1. The patient was admitted to the hospital with atrial fibrillation with RVR and hypotension. The patient will remain on digoxin for rate control of her atrial fibrillation. 2. The patient is on long-term anticoagulation with Eliquis. We will hold this for now and use IV Lovenox. 3. We will transfer the patient to Dr. Mccall at [facility] for AV node ablation and placement of a biventricular pacemaker. The patient is in atrial fibrillation with RVR. She is intolerant of beta-blockers due to hypotension. There are not many more options for rate control given her hypotension so Dr. Hester
[2021-12-10 14:11] LABS: Chloride 104 mmol/L (98-107); Sodium 139 mmol/L (136-145)
[2021-12-10 14:12] LABS: Basophils # 0.1 K/mm3 (0-0.2); Basophils % 0.8 % (0.1-2.0); Eosinophils # 0.2 K/mm3 (0.0-0.4); Eosinophils % 2.1 % (0.1-12.0); Hematocrit 36.3 % (37.0-47.0); Hemoglobin 10.8 g/dL (12.2-16.2); Lymphocytes # 1.8 K/mm3 (0.7-4.5); Lymphocytes % 16.3 % (10-50); Mean Corpuscular HGB Conc 29.8 g/dL (31.8-35.4); Mean Corpuscular Hemoglobin 25.3 pg (27.0-31.2); Mean Corpuscular Volume 85.1 fl (81-99); Mean Platelet Volume 9.2 fl (7.4-10.4); Monocytes # 0.8 K/mm3 (0.1-1.0); Monocytes % 7.4 % (1.7-9.3); Neutrophils # 8.1 K/mm3 (1.8-7.8); Neutrophils % 73.3 % (37.0-80.0); Platelet Count 414 K/mm3 (142-424); Potassium 3.8 mmoL/L (3.5-5.1); Red Blood Count 4.27 M/mm3 (4.20-5.40); Red Cell Distribution Width 20.2 % (11.5-17.5); White Blood Count 11.1 K/mm3 (4.8-10.8)
[2021-12-10 14:14] LABS: Blood Urea Nitrogen 21 mg/dl (7-17); Creatinine Clearance Estimated 67 mL/min (50-200); Estimated Glomerular Filt Rate 101 ml/min (>60); GFR (African American) 122 ML/MIN (>60)
[2021-12-10 14:15] LABS: Anion Gap 9.8 mEq/L (5-15); Calcium 8.1 mg/dl (8.4-10.2); Carbon Dioxide 29 mmol/L (22.0-30.0); Glucose 223 mg/dl (74-100)
--- NOTE | 2021-12-10 14:18 | PC.NURSE ---
late entry. patient direct admit from [facility] office under dr bennett service. patient has no questions or concerns at that time. did attempt to start an IV. 4 attempts by this nurse with two of those being ultrasound with out success. 6 sticks per primary nurse, one per marla rn and 1 per adán rn. 20 gauge in r upper arm was obtained. patient tolerated well.
[2021-12-10 14:26] LABS: Troponin I 0.02 ng/ml (0.00-0.034)
--- NOTE | 2021-12-10 19:22 | PC.NURSE ---
Have called report to Linsey @ [facility]. Have also called [facility] for transport. Awaiting transport at this time. Family @ bedside. VSS.
--- NOTE | 2021-12-10 20:19 | PC.NURSE ---
This RN did also inquire about orders foe pt earlier this shift and made Ruth Bullard APRN that pt was still hypotensive, but stable.
--- NOTE | 2021-12-10 23:18 | PC.NURSE ---
PT LEFT FLOOR AT THIS TIME FOR [facility] WITH AMBULANCE PERSONNEL
== END 2021-12-10 23:18 | disposition short-term general hospital (02) ==
PROVIDERS: Nurse Practitioner Family; Admitting Provider Emergency Medicine; PCP Emergency Medicine; Visit Provider Emergency Medicine
DX: I48.91 Unspecified atrial fibrillation (principal); I25.2 Old myocardial infarction; I42.9 Cardiomyopathy, unspecified; E11.9 Type 2 diabetes mellitus without complications; Z79.4 Long term (current) use of insulin; Z79.899 Other long term (current) drug therapy; Z79.01 Long term (current) use of anticoagulants; I95.9 Hypotension, unspecified
CPT/HCPCS: G0378; G0379; 80048; 84484; 85025; C9803; U0003; U0005

== ENCOUNTER → 2022-01-01 10:59 | Outpatient (CLI) | payer MEDICARE, SELFPAY ==
--- NOTE | 2022-01-01 11:42 | CA_ITS ---
APPROVED REPORT EXAM: Comprehensive 2D, Doppler, and color-flow Echocardiogram Patient Access Director: Seda Bautista RDCS Ht: 5 ft 3 in Wt: 159lbs BSA: 1.75 BP: 91/61 mmHg Indications: S/P PP,CAD,EF 10/17 40-45% M-Mode Dimensions RVDd 3.18 cm (0.9-2.6) LVDd 4.76 cm (3.5-5.7) LVDs 4.04 cm (3.5-5.7) IVSd 1.22 cm (0.6-1.1) PWd 1.00 cm (0.6-1.1) EF (Teich) 32.00% FS 15.10% EDV (Teich) 105.40 mL ESV (Teich) 71.70 mL Tricuspid Valve TR P. Velocity 406.00 cm/s RAP Estimate 10.00 mmHg RVSP 75.90 mmHg Conclusion 1. Limited echocardiogram is performed. 2. Normal left ventricular size preserved left ventricular systolic function with estimated ejection fraction 50%, there is flattening of the interventricular septum during systole and diastole consistent with pressure and volume overload in right ventricle. 3. Mildly enlarged right atrium and right ventricle, contractility of the right ventricle is normal. 4. Mild tricuspid regurgitation, calculated right ventricular systolic pressure 75 mmHg. 5. No significant pericardial effusion noted. 6. Inferior vena cava is poorly visualized. Electronically signed by : Héctor Gutierrez MD 01/02/2022 14:48:41
[2022-01-01 11:52] LABS: Basophils # 0.1 K/mm3 (0-0.2); Basophils % 0.6 % (0.1-2.0); Eosinophils # 0.1 K/mm3 (0.0-0.4); Eosinophils % 0.5 % (0.1-12.0); Hematocrit 33.3 % (37.0-47.0); Lymphocytes # 0.9 K/mm3 (0.7-4.5); Lymphocytes % 6.5 % (10-50); Mean Corpuscular HGB Conc 30.1 g/dL (31.8-35.4); Mean Corpuscular Hemoglobin 25.4 pg (27.0-31.2); Mean Corpuscular Volume 84.2 fl (81-99); Mean Platelet Volume 8.4 fl (7.4-10.4); Monocytes % 7.4 % (1.7-9.3); Neutrophils # 11.5 K/mm3 (1.8-7.8); Neutrophils % 84.9 % (37.0-80.0); Platelet Count 380 K/mm3 (142-424); Red Blood Count 3.96 M/mm3 (4.20-5.40); Red Cell Distribution Width 19.2 % (11.5-17.5); White Blood Count 13.6 K/mm3 (4.8-10.8)
--- NOTE | 2022-01-01 12:06 | XR_ITS ---
FINAL REPORT CLINICAL HISTORY: dyspnea COMPARISON: September 29, 2021 FINDINGS: Two views of the chest were obtained. There has been interval placement of a left subclavian pacemaker. Cardiomegaly is noted. There has been prior median sternotomy. There is pulmonary vascular congestion. There are small bilateral pleural effusions. There is mild bibasilar atelectasis. There is no pneumothorax. The bony thorax is intact. IMPRESSION: Pulmonary vascular congestion with mild bibasilar atelectasis and small bilateral pleural effusions, stable. Reviewed, Interpreted and Dictated by Sumeet Kaufman III, MD Transcribed by Alejo Harrell Authenticated and [facility]
[2022-01-01 12:17] LABS: Alanine Aminotransferase 19 U/L (12-78); Albumin Level 3.3 g/dl (3.5-5.0); Alkaline Phosphatase 175 U/L (38-126); Anion Gap 15.3 mEq/L (5-15); Aspartate Amino Transferase 24 U/L (14-36); Bilirubin,Indirect 0.3 mg/dL (0.0-0.9); Bilirubin,Total 0.3 mg/dl (0.2-1.3); Bilirubin,Unconjugated 0.3 mg/dL (0.0-1.1); Blood Urea Nitrogen 23 mg/dl (7-17); Calcium 8.8 mg/dl (8.4-10.2); Carbon Dioxide 27 mmol/L (22.0-30.0); Chloride 97 mmol/L (98-107); Estimated Glomerular Filt Rate 125 ml/min (>60); GFR (African American) 151 ML/MIN (>60); Glucose 150 mg/dl (74-100); Potassium 4.3 mmoL/L (3.5-5.1); Sodium 135 mmol/L (136-145)
[2022-01-01 12:20] LABS: D-Dimer 0.75 ug/mL (0.0-0.5)
[2022-01-01 12:30] LABS: NT Pro Brain Natriuretic Pep. 1840 pg/mL (0-125); Troponin I 0.04 ng/ml (0.00-0.034)
[2022-01-01 12:33] LABS: Free T4 (Free Thyroxine) 1.24 ng/dl (0.78-2.19)
[2022-01-01 12:48] LABS: Thyroid Stimulating Hormone 4.08 uIU/mL (0.465-4.68)
== END ==
PROVIDERS: PCP Emergency Medicine; Visit Provider Nurse Practitioner Family
DX: E11.69 Type 2 diabetes mellitus with other specified complication (principal); E78.2 Mixed hyperlipidemia; I48.0 Paroxysmal atrial fibrillation; I50.33 Acute on chronic diastolic (congestive) heart failure; I95.9 Hypotension, unspecified; R53.83 Other fatigue; R94.31 Abnormal electrocardiogram [ECG] [EKG]; Z95.0 Presence of cardiac pacemaker; Z98.890 Other specified postprocedural states; R06.09 Other forms of dyspnea; R07.9 Chest pain, unspecified; Z79.4 Long term (current) use of insulin
CPT/HCPCS: 36415; 71046; 80048; 80076; 83880; 84439; 84443; 84484; 85025; 85378; 93308

== ENCOUNTER 2022-05-07 23:33 | Inpatient (IN) | payer MEDICARE, SELFPAY ==
[2022-05-07 23:34] VITALS: BP 72/55; PULSE 98; RESP 19; TEMP 36.8; O2SAT 93; BMI 26.5
--- NOTE | 2022-05-07 23:40 | ECG_ITS ---
APPROVED REPORT Exam: Resting ECG HR:107 bpm ECG Measurements Heart Rate 107 AXES QRSd 148 QRS -66 QT 389 T 93 QTc 452 Conclusion UNCERTAIN IRREGULAR RHYTHM ELECTRONIC VENTRICULAR PACEMAKER -- CONTOUR ANALYSIS BASED ON INTRINSIC RHYTHM LEFT AXIS DEVIATION [QRS AXIS < -30] RIGHT BUNDLE BRANCH BLOCK [120+ ms QRS DURATION, UPRIGHT V1, 40+ ms S IN I/aVL/V4/V5/V6] LEFT VENTRICULAR HYPERTROPHY AND ST-T CHANGE [VOLTAGE CRITERIA PLUS ST/T ABNORMALITY] POSSIBLE ANTERIOR MYOCARDIAL INFARCTION , OF INDETERMINATE AGE [30 ms Q WAVE IN V3/V4, OR R < 0.2 mV IN V4] CRITICAL TEST RESULT UNCONFIRMED REPORT Electronically signed by : Gus Young MD 05/09/2022 12:10:38
[2022-05-08] VITALS (25 sets, daily range): BP systolic 82–161; BP diastolic 48–86; PULSE 60–102; RESP 17–23; TEMP 36.6–36.9; O2SAT 89–99; BMI 27.3
--- NOTE | 2022-05-08 00:06 | XR_ITS ---
PROCEDURE INFORMATION: Exam: XR Chest Exam date and time: 05/08/2022 12:09 AM Age: 61 years old Clinical indication: Shortness of breath; Prior surgery; Surgery type: Open heart 20+ years ago, pacemaker x2-3 months ago; Additional info: SOB TECHNIQUE: Imaging protocol: Radiologic exam of the chest. Views: 2 views. COMPARISON: CR XR CHEST 2V 01/01/2022 12:07 PM FINDINGS: Tubes, catheters and devices: Unchanged pacemaker leads. Lungs: Possible mild pulmonary venous congestion. Bilateral lower lung reticular opacities are similar to prior study and may represent chronic scarring. Pleural spaces: Small right pleural effusion. Heart/Mediastinum: Cardiomegaly. Enlarged pulmonary arteries likely represent chronic pulmonary arterial hypertension. Vasculature: Vascular calcifications. Bones/joints: Status post median sternotomy and coronary artery bypass. IMPRESSION: 1. Possible mild pulmonary venous congestion. 2. Small right pleural effusion.
[2022-05-08 00:18] LABS: Basophils # 0.1 K/mm3 (0-0.2); Basophils % 0.6 % (0.1-2.0); Eosinophils # 0.1 K/mm3 (0.0-0.4); Hematocrit 33.8 % (37.0-47.0); Hemoglobin 10.6 g/dL (12.2-16.2); Lymphocytes # 1.1 K/mm3 (0.7-4.5); Lymphocytes % 8.2 % (10-50); Mean Corpuscular HGB Conc 31.3 g/dL (31.8-35.4); Mean Corpuscular Hemoglobin 26.3 pg (27.0-31.2); Mean Platelet Volume 9.7 fl (7.4-10.4); Monocytes # 0.6 K/mm3 (0.1-1.0); Monocytes % 4.3 % (1.7-9.3); Neutrophils # 11.7 K/mm3 (1.8-7.8); Neutrophils % 85.9 % (37.0-80.0); Platelet Count 365 K/mm3 (142-424); Red Blood Count 4.03 M/mm3 (4.20-5.40); Red Cell Distribution Width 18.8 % (11.5-17.5); White Blood Count 13.6 K/mm3 (4.8-10.8)
[2022-05-08 00:22] LABS: MANUAL DIFFERENTIAL MANUAL DIFFERENTIAL (MANUAL DIFF)
[2022-05-08 00:24] LABS: Alanine Aminotransferase 86 U/L (12-78); Albumin Level 3.9 g/dl (3.5-5.0); Alkaline Phosphatase 141 U/L (38-126); Anion Gap 12.7 mEq/L (5-15); Aspartate Amino Transferase 52 U/L (14-36); Bilirubin,Direct 0.5 mg/dl (0.0-0.4); Bilirubin,Indirect 0.5 mg/dL (0.0-0.9); Bilirubin,Unconjugated 0.5 mg/dL (0.0-1.1); Blood Urea Nitrogen 24 mg/dl (7-17); Calcium 8.3 mg/dl (8.4-10.2); Carbon Dioxide 29 mmol/L (22.0-30.0); Chloride 98 mmol/L (98-107); Creatinine Clearance Estimated 62 mL/min (50-200); Estimated Glomerular Filt Rate 63 ml/min (>60); GFR (African American) 77 ML/MIN (>60); Glucose 171 mg/dl (74-100); Potassium 3.7 mmoL/L (3.5-5.1); Sodium 136 mmol/L (136-145); Total Protein,Serum 6.6 g/dl (6.3-8.2)
--- NOTE | 2022-05-08 00:33 | CT_ITS ---
PROCEDURE INFORMATION: Exam: CTA Chest With Contrast Exam date and time: 05/08/2022 1:04 AM Age: 61 years old Clinical indication: Shortness of breath; Prior surgery; Additional info: SOA TECHNIQUE: Imaging protocol: Computed tomographic angiography of the chest with contrast. 3D rendering (Not supervised by radiologist): MIP and/or 3D reconstructed images were created by the technologist. Radiation optimization: All CT scans at this facility use at least one of these dose optimization techniques: automated exposure control; mA and/or kV adjustment per patient size (includes targeted exams where dose is matched to clinical indication); or iterative reconstruction. Contrast material: ISOVUE; Contrast volume: 70 ml; Contrast route: INTRAVENOUS (IV); Other protocol: This patient has received 0 known CTs and 0 known cardiac nuclear medicine studies in the 12 months prior to the current study. COMPARISON: CR XR CHEST 2V 05/08/2022 12:09 AM FINDINGS: Pulmonary arteries: No pulmonary emboli. Enlarged pulmonary arteries likely represent chronic pulmonary arterial hypertension. Aorta: The aorta demonstrates severe atherosclerotic disease. Lungs: Patchy right lower lobe consolidations and scattered right lung nodular opacities likely represent pneumonia. Mild scarring and atelectasis in the lower lungs. Mosaic attenuation of the lungs is nonspecific, but suggests small airway disease. Pleural spaces: Unremarkable. No pneumothorax. No pleural effusion. Heart: Reflux of contrast into the hepatic veins suggests right heart dysfunction. Cardiomegaly. Mitral valve calcifications. Coronary arteries: Coronary artery calcifications. Lymph nodes: Mildly enlarged right hilar lymph nodes could be reactive. Attention to this on follow-up studies. Liver: Nonspecific periportal edema. Adrenal glands: Bilateral adrenal thickening. Intraperitoneal space: Small amount of ascites in the upper abdomen. Bones/joints: Status post median sternotomy and coronary artery bypass. Old right rib fractures. Soft tissues: Unremarkable. Other findings: Stigmata of old granulomatous disease. IMPRESSION: 1. No pulmonary emboli. 2. Patchy right lower lobe consolidations and scattered right lung nodular opacities likely represent pneumonia. A three-month follow-up chest CT is recommended to exclude underlying malignancy. 3. Mosaic attenuation of the lungs is nonspecific, but suggests small airway disease. Please correlate for evidence of asthma or bronchiolitis. 4. Nonspecific periportal edema. This is likely related to right-sided heart failure, however, please exclude acute hepatitis clinically.
[2022-05-08 00:46] LABS: Lymphocytes % 18 % (10-50); Monocytes % 5 % (2-9); Neutrophils % 76 % (42-76); Total Cells Counted 100
[2022-05-08 00:47] LABS: Acanthocytes 1+; Ovalocytes 2+; Platelet Estimate Normal
[2022-05-08 00:50] LABS: NT Pro Brain Natriuretic Pep. 4040 pg/mL (0-125)
[2022-05-08 00:56] LABS: Lactic Acid 1.5 mmol/L (0.7-2.1)
--- NOTE | 2022-05-08 01:19 | HMH.EDSOB ---
Discharge Plan Disposition Patient Disposition: Admitted As Inpatient Clinical Impressions Clinical Impression: Hypotension, Congestive heart failure, Acute exacerbation of chronic obstructive airways disease, Elevated troponin Discharge ED Provider: Gissell (ED)Renard Resp/SOB HPI General Chief Complaint: Shortness of Breath/Dyspnea Stated Complaint: SOA; HX of CHF Time Seen by Provider: 05/08/22 01:20 Mode of Arrival: Ambulatory Source of Information: Patient, Relative and Medical Record Limitations: No Limitations Description of Symptoms (Recalled from ER Triage Doc. by RN): pt to ED with family for SOB and cough x 1 week. pt has a history of COPD and still smokes a pack a day. pt denies any chest pain or recent illness at this time. 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 but not using and has hx of copd and tob use MD Complaint: shortness of breath and cough Onset (ago): day(s) Context: smoke/fume exposure Severity: severe Consistency/Duration: intermittent Known history of: COPD, congestive heart failure and diabetes Associated symptoms: cough Treatment prior to arrival: none Related Data Home oxygen amount: none Home Medications Medication Instructions Recorded Confirmed aripiprazole 5 mg tablet 5 mg PO DAILY Depression 09/26/21 02/25/22 atorvastatin 80 mg tablet 80 mg PO HS Cholesterol 09/26/21 02/25/22 metformin 1,000 mg tablet 1,000 mg PO BID Diabetes 09/26/21 02/25/22 paroxetine HCl 40 mg tablet 40 mg PO DAILY Depression 09/26/21 02/25/22 trazodone 150 mg tablet 150 mg PO HS sleep 09/26/21 02/25/22 insulin glargine 100 unit/mL (3 50 units SQ HS Diabetes 09/27/21 02/25/22 mL) subcutaneous pen magnesium oxide 400 mg (241.3 mg 400 mg PO DAILY Supplement 09/27/21 02/25/22 magnesium) tablet pioglitazone 15 mg tablet 15 mg PO DAILYDM Diabetes 09/27/21 02/25/22 clopidogrel 75 mg tablet 75 mg PO DAILY Blood thinner 10/08/21 02/25/22 fluticasone fur. 100 mcg-umeclid 1 puff inhalation DAILY soa 12/10/21 02/25/22 62.5 mcg-vilant 25 mcg inhalat.powder furosemide 20 mg tablet 40 mg PO DAILY Fluid 12/10/21 02/25/22 prednisone 20 mg tablet 40 mg PO DAILY swelling 12/10/21 02/25/22 apixaban 5 mg tablet (Eliquis) 5 mg PO 01/01/22 02/25/22 Previous Rx's Medication Instructions Recorded albuterol sulfate 90 mcg/actuation 8.5 gm inhalation Q4-6H PRN 10/01/21 aerosol inhaler Shortness Of Breath Or Wheezing 28 days #1 ea potassium chloride 20 mEq 20 meq PO DAILY Supplement ##0 10/01/21 tablet,extended release bumetanide 1 mg tablet 1 mg PO BID #60 tabs 04/02/22 spironolactone 50 mg tablet 50 mg PO BID #60 tabs 04/02/22 (Aldactone) Allergies Allergy/AdvReac Type Severity Reaction Status Date / Time No Known Allergies Allergy Verified 02/25/22 11:20 Well's Criteria PE Score Clinical signs/symptoms of DVT: No PE is #1 diagnosis or equally likely: Yes Heart rate is > 100: Yes Immobile at least 3 days, or surgery in past 4 wks: No Previously, obj. diagnosed PE or DVT: No Hemoptysis: No Malignancy w/Rx within 6mo, or palliative: No PE Score: 4 Risk of Pulmonary Embolism by score: >3 pts=Hi Risk (78%) [facility] Disclaimer: The information contained in this section may have been updated after the patient was seen, as this information can be updated by other users. Medical History Abnormal electrocardiography Afib Angina pectoris Atrial fibrillation COPD (chronic obstructive pulmonary disease) Dyspnea Edema Hyperlipidemia Hypotension Sinus tachycardia Surgical History H/O heart artery stent Presence of cardiac pacemaker S/P triple vessel bypass S/P triple vessel bypass S/P triple vessel bypass Status post atrioventricular mike ablation Social History (Reviewed 05/08/22 @ 02:34 by Bhavesh King
--- NOTE | 2022-05-08 01:28 | PC.NURSE ---
Pt resting in bed with eyes closed
--- NOTE | 2022-05-08 01:32 | ECG_ITS ---
APPROVED REPORT Exam: Resting ECG HR:91 bpm ECG Measurements Heart Rate 91 AXES QRSd 154 QRS -74 QT 430 T 87 QTc 478 Conclusion ELECTRONIC VENTRICULAR PACEMAKER ABNORMAL RHYTHM ECG UNCONFIRMED REPORT Electronically signed by : Gus Young MD 05/09/2022 12:09:59
[2022-05-08 01:34] LABS: Coronavirus 19, PCR Not Detected (NotDetected); Influenza A, PCR Not Detected (NotDetected); Influenza B, PCR Not Detected (NotDetected)
--- NOTE | 2022-05-08 01:34 | PC.NURSE ---
Pt complains of new onset back pain. Denies chest, arm, neck, or facial pain. Repeat EKG obtained.
--- NOTE | 2022-05-08 01:50 | PC.NURSE ---
Hospitalist, Bhavesh, at [facility]
--- NOTE | 2022-05-08 02:28 | EXP.HP ---
History of Present Illness *Admission Date: 05/08/22 *Reason for visit:: Shortness of air, cough *History of present illness: Ms. Galindo is a 61-year-old female with a past medical history that is positive for HFpEF, chronic hypotension, COPD, not home oxygen dependent, Atrial Fibrillation on chronic anticoagulation, CAD. She presents to [facility] through the ER due to shortness of air and cough that has been progressively worsening over a 1-week period. She denies fevers, body aches or chills. She reports worsening leg edema despite diuretics. In the ER, CTA of the chest showed patchy right lower lobe consolidations and scattered right lung nodular opacities and recommended CT of the chest follow-up in 3 months. It also showed periportal edema suggestive of right sided failure. EKG showed a Right Bundle Branch Block. BNP was elevated at 4,040. Troponin was elevated at 0.10. The patient will be admitted with initial impression: CAP, CHF exacerbation and elevated Troponin. Cardiology will be consulted to see. She will be placed on antibiotics and cultures drawn. The plan of care was discussed with the patient on admission. She verbalized understanding and agreement with the plan of care. [facility] Disclaimer: The information contained in this section may have been updated after the patient was seen, as this information can be updated by other users. Medical History Abnormal electrocardiography Afib Angina pectoris Atrial fibrillation COPD (chronic obstructive pulmonary disease) Dyspnea Edema Hyperlipidemia Hypotension Sinus tachycardia Surgical History H/O heart artery stent Presence of cardiac pacemaker S/P triple vessel bypass S/P triple vessel bypass S/P triple vessel bypass Status post atrioventricular mike ablation Social History Smoking Status: Current every day smoker tobacco type: cigarettes packs per day: 1 alcohol intake: never current occupational status: retired Travel in the last 8 weeks: Inside the [place] household members: family caffeine: No Review of Systems Review of Systems Review of systems:: pertinent systems reviewed and negative unless documented below Constitutional Constitutional: Reports system reviewed and no additional complaints, except as documented Eyes Eyes: Reports system reviewed and no additional complaints, except as documented ENT Ears, Nose, Mouth, and Throat: Reports dry mouth *Cardiovascular Cardiovascular: Reports system reviewed and no additional complaints, except as documented and Reports dyspnea on exertion *Respiratory Respiratory: Reports chest congestion, Reports cough and Reports dyspnea on exertion *Gastrointestinal Gastrointestinal: Reports system reviewed and no additional complaints, except as documented *Genitourinary Genitourinary: Reports system reviewed and no additional complaints, except as documented *Musculoskeletal Musculoskeletal: Reports system reviewed and no additional complaints, except as documented Integumentary/Breasts Skin/Breast: Reports system reviewed and no additional complaints, except as documented *Neurologic Neurologic: Reports system reviewed and no additional complaints, except as documented Psychiatric Psychiatric: Reports system reviewed and no additional complaints, except as documented Endocrine Endocrine: Reports system reviewed and no additional complaints, except as documented Hematologic/Lymphatic Hematologic/Lymphatic: Reports system reviewed and no additional complaints, except as documented Allergic/Immunologic Allergic/Immunologic: Reports system reviewed and no additional complaints, except as documented Meds Home Medications and Allergies Home Medications Medication Instructions Recorded Confirmed Type aripiprazole 5
--- NOTE | 2022-05-08 02:51 | PC.NURSE ---
Pt in room from ED
[2022-05-08 03:50] LABS: Troponin I 0.09 ng/ml (0.00-0.034)
--- NOTE | 2022-05-08 04:27 | PC.NURSE ---
verified azithromycin dose with [facility] pharmacy
[2022-05-08 06:58] LABS: Basophils # 0.1 K/mm3 (0-0.2); Basophils % 0.3 % (0.1-2.0); Eosinophils # 0.1 K/mm3 (0.0-0.4); Eosinophils % 0.8 % (0.1-12.0); Hematocrit 31.6 % (37.0-47.0); Hemoglobin 9.8 g/dL (12.2-16.2); Lymphocytes # 0.9 K/mm3 (0.7-4.5); Lymphocytes % 5.8 % (10-50); Mean Corpuscular HGB Conc 30.9 g/dL (31.8-35.4); Mean Corpuscular Hemoglobin 26.4 pg (27.0-31.2); Mean Corpuscular Volume 85.1 fl (81-99); Mean Platelet Volume 9.4 fl (7.4-10.4); Monocytes # 0.7 K/mm3 (0.1-1.0); Monocytes % 4.1 % (1.7-9.3); Neutrophils # 14.7 K/mm3 (1.8-7.8); Platelet Count 306 K/mm3 (142-424); Red Blood Count 3.71 M/mm3 (4.20-5.40); Red Cell Distribution Width 18.9 % (11.5-17.5); White Blood Count 16.5 K/mm3 (4.8-10.8)
[2022-05-08 07:08] LABS: Chloride 101 mmol/L (98-107); Sodium 137 mmol/L (136-145)
[2022-05-08 07:10] LABS: Alanine Aminotransferase 75 U/L (12-78); Aspartate Amino Transferase 44 U/L (14-36); Blood Urea Nitrogen 17 mg/dl (7-17); Creatinine Clearance Estimated 64 mL/min (50-200); Estimated Glomerular Filt Rate 85 ml/min (>60); GFR (African American) 102 ML/MIN (>60)
[2022-05-08 07:11] LABS: Albumin Level 3.3 g/dl (3.5-5.0); Albumin/Globulin Ratio 1.2 (1.1-1.8); Alkaline Phosphatase 128 U/L (38-126); Bilirubin,Total 1.1 mg/dl (0.2-1.3); Calcium 7.4 mg/dl (8.4-10.2); Carbon Dioxide 30 mmol/L (22.0-30.0); Globulin 2.8 g/dL (1.3-3.2); Glucose 195 mg/dl (74-100); Total Protein,Serum 6.1 g/dl (6.3-8.2)
[2022-05-08 07:12] LABS: Anion Gap 9.1 mEq/L (5-15); Potassium 3.1 mmoL/L (3.5-5.1)
[2022-05-08 07:23] LABS: Troponin I 0.08 ng/ml (0.00-0.034)
--- NOTE | 2022-05-08 07:33 | HMH.PHAINT1 ---
Pharmacy Intervention Comments: MEDICATION RECONCILIATION COMPLETED ON PATIENT USING EXTERNAL FILL HISTORY FROM PHARMACY. -BRICE SWANSON, KAREND
--- NOTE | 2022-05-08 08:11 | EXP.PN ---
Subjective *Date: 05/08/22 *Time: 17:01 Interval history: Date of service May 08, 2022 The patient remains afebrile with low blood pressures and stable heart rates. She is saturating appropriately on 2 L of oxygen via nasal cannula. She does not use home oxygen. We have reviewed and discussed her admission labs. I have personally interpreted her CBC that shows a leukocytoses with hemoglobin 9.8 and platelet count of 306. I have also evaluated and interpreted her electrolytes including a potassium 3.1 normal sodium, chloride. Her BUN 17 and a creatinine 0.7. Her glucose is uncontrolled at 195. Her troponin trend is reviewed and identifies a plateau and downward trend. Her chest x-ray is consistent with pulmonary edema. CT of the chest identifies a right lower lobe pneumonia. Cardiology is due to see the patient. Exam Data for Last 24 hours Vital signs and Labs for Last 24 Hours: Temp Pulse Resp BP Pulse Ox 97.8 F 96 H 21 82/54 L 97 05/08/22 03:31 05/08/22 06:40 05/08/22 03:31 05/08/22 03:31 05/08/22 03:31 Laboratory Results - last 24 hr 05/08/22 00:00: WBC 13.6 H, RBC 4.03 L, Hgb 10.6 L, Hct 33.8 L, MCV 84.0, MCH 26.3 L, MCHC 31.3 L, RDW 18.8 H, Plt Count 365, MPV 9.7, Neut % (Auto) 85.9 H, Lymph % (Auto) 8.2 L, [place] % (Auto) 4.3, Eos % (Auto) 1.0, Baso % (Auto) 0.6, Neut # (Auto) 11.7 H, Lymph # (Auto) 1.1, [place] # (Auto) 0.6, Eos # (Auto) 0.1, Baso # (Auto) 0.1, Total Counted 100, Neutrophils % (Manual) 76, Lymphocytes % (Manual) 18, Monocytes % (Manual) 5, Basophils % (Manual) 1.0, Platelet Estimate Normal, Ovalocytes 2+, Acanthocytes (Spur) 1+ 05/08/22 00:00: Sodium 136, Potassium 3.7, Chloride 98, Carbon Dioxide 29, Anion Gap 12.7, BUN 24 H, Creatinine 0.90, Estimated Creat Clear 62, Estimated GFR 63, Est GFR ( Amer) 77, Glucose 171 H, Calcium 8.3 L, Troponin I 0.10 H 05/08/22 00:00: Total Bilirubin 1.0, Direct Bilirubin 0.5 H, Conjugated Bilirubin 0.0, Indirect Bilirubin 0.5, Unconjugated Bilirubin 0.5, AST 52 H, ALT 86 H, Alkaline Phosphatase 141 H, Total Protein 6.6, Albumin 3.9 05/08/22 00:00: NT-Pro-B Natriuret Pep 4040 H 05/08/22 00:39: Lactate 1.5 05/08/22 01:29: SARS-CoV-2 (PCR) Not detected, Influenza A Untype (PCR) Not detected, Influenza Type B (PCR) Not detected 05/08/22 03:15: Troponin I 0.09 H 05/08/22 06:38: Troponin I 0.08 H 05/08/22 06:38: WBC 16.5 H, RBC 3.71 L, Hgb 9.8 L, Hct 31.6 L, MCV 85.1, MCH 26.4 L, MCHC 30.9 L, RDW 18.9 H, Plt Count 306, MPV 9.4, Neut % (Auto) 89.0 H, Lymph % (Auto) 5.8 L, [place] % (Auto) 4.1, Eos % (Auto) 0.8, Baso % (Auto) 0.3, Neut # (Auto) 14.7 H, Lymph # (Auto) 0.9, [place] # (Auto) 0.7, Eos # (Auto) 0.1, Baso # (Auto) 0.1 05/08/22 06:38: Sodium 137, Potassium 3.1 L, Chloride 101, Carbon Dioxide 30, Anion Gap 9.1, BUN 17 D, Creatinine 0.70 D, Estimated Creat Clear 64, Estimated GFR 85, Est GFR ( Amer) 102 D, Glucose 195 H, Calcium 7.4 L, Total Bilirubin 1.1, AST 44 H, ALT 75, Alkaline Phosphatase 128 H, Total Protein 6.1 L, Albumin 3.3 L D, Globulin 2.8, Albumin/Globulin Ratio 1.2 I & O for Last 24 hours: Intake & Output 0205/06/22 05/07/22 05/08/22 23:59 23:59 23:59 23:59 Intake Total 186 / 186 Output Total 3050 / 3050 Balance -2864 / -2864 Weight 68.039 kg 70.08 kg Constitutional Constitutional: no acute distress, chronically ill appearing and cooperative *Routine HEENT Exam Head: Present normocephalic Eye: Present EOMI and PERRL ENT: Present mucous membranes moist *Routine Neck Exam Neck: Present supple; Absent lymphadenopathy *Routine Respiratory Exam Respiratory: Present wheezes, normal respiratory effort and symmetric chest movement *Routine Cardiovascular Exam Cardiovascular: Present RRR and murmur *Routine Abdominal Exam Abdominal: Present soft and normoactive bowel sounds; Absent tenderness *Routine Extremities Exam Extremities: Present full ROM, pulses intact and normal capillary refill; Absent cyanosis, clubbing or raquel
--- NOTE | 2022-05-08 09:55 | CA_ITS ---
APPROVED REPORT EXAM: Comprehensive 2D, Doppler, and color-flow Echocardiogram [employer] Manager: Donna Hughes RT(R) Ht: 5 ft 3 in Wt: 160lbs BSA: 1.76 BP: 82/54 mmHg Indications: CHF, COPD, smoker, edema, DM, hyperlipidemia, AFIB, CAD, hx of CABG, hypotension 2D Dimensions LVOT 2.02 cm (M/F) 1.5-2.5 LA Volume 76.00 mL LA Volume Index 43.18 mL/m2 (M/F) 16-34 M-Mode Dimensions RVDd 3.47 cm (0.9-2.6) LA Diam 3.73 cm (1.9-4.0) LVDd 5.19 cm (3.5-5.7) Ao Diam 3.37 cm (2.0-3.7) LVDs 4.33 cm (3.5-5.7) IVSd 0.93 cm (0.6-1.1) PWd 1.11 cm (0.6-1.1) EF (Teich) 34.50% FS 16.60% EDV (Teich) 128.90 mL TAPSE 1.36 (<1.7) ESV (Teich) 84.40 mL Mitral Valve MV PHT 50.00 ms Tricuspid Valve TR P. Velocity 341.00 cm/s RAP Estimate 10.00 mmHg RVSP 56.40 mmHg Left Ventricle Left atrium is moderately enlarged on the ventricular normal size mild concentric left ventricular hypertrophy, estimated ejection fraction 55% with no regional wall motion abnormality, diastolic parameters of inconclusive. Right Ventricle Right atrium and right ventricle are mildly enlarged with normal contractility. Aortic Valve Valve is minimally thickened and fibrosed there is no aortic stenosis or aortic insufficiency. Mitral Valve Mitral valve has mitral calcification, there is no mitral stenosis, there is mild mitral regurgitation. Tricuspid Valve Tricuspid valve is grossly normal, there is mild tricuspid regurgitation, calculated to ventricular systolic pressure is 56 mmHg. Pulmonic Valve Pulmonic valve is poorly visualized. Great Vessels Aortic root is normal size. Inferior vena cava is poorly visualized. Pericardium No significant pericardial effusion noted. Conclusion 1. Biatrial enlargement, normal left ventricular size, estimated ejection fraction 55% with no regional wall motion abnormality, diastolic parameters are inconclusive. 2. Mildly enlarged right ventricle with normal contractility. 3. Mild mitral and tricuspid regurgitation, calculated right ventricular systolic pressure 56 mmHg. 4. No significant pericardial effusion noted. 5. Inferior vena cava is poorly visualized. Electronically signed by : Héctor Gutierrez MD 05/08/2022 16:37:36
--- NOTE | 2022-05-08 10:12 | EXP.CARD.CON ---
History of Present Illness History of Present Illness Consult date: 05/08/22 Requesting physician: Cj Snider Consult reason: shortness of breath Chief complaint: SOA History of present illness: This is a 61-year-old white female who presented to the emergency department with complaints of shortness of breath and a cough. She states that this is progressively worsened over the last week. It is also associated with bilateral lower extremity edema despite being on her diuretics. She states that anytime she was exerting herself she was having profound shortness of breath. This does improve with rest but does not completely resolve. She denies any fever, chills, nausea, vomiting, diarrhea. She does have some associated orthopnea with her shortness of breath as well. CT of the chest shows periportal edema suggestive of right-sided heart failure. Her BNP was elevated at 4040 and had an elevated troponin consistent with a non-STEMI. [facility] Disclaimer: The information contained in this section may have been updated after the patient was seen, as this information can be updated by other users. Medical History (Updated 05/08/22 @ 10:30 by Savana Block APRN) Abnormal electrocardiography Afib Angina pectoris Atrial fibrillation Atrial fibrillation CAD (coronary artery disease) Cardiac pacemaker in situ Community acquired pneumonia Congestive heart failure COPD (chronic obstructive pulmonary disease) Diabetes mellitus Dyspnea Dyspnea Edema Elevated troponin Hyperlipidemia Hypotension Non-STEMI (non-ST elevated myocardial infarction) Sinus tachycardia Tobacco abuse Surgical History (Updated 05/08/22 @ 10:19 by Savana Block APRN) H/O heart artery stent Presence of cardiac pacemaker S/P triple vessel bypass S/P triple vessel bypass S/P triple vessel bypass Status post atrioventricular mike ablation Social History Smoking Status: Current every day smoker tobacco type: cigarettes packs per day: 1 alcohol intake: never current occupational status: retired Travel in the last 8 weeks: Inside the [place] household members: family caffeine: No Review of Systems Review of Systems Review of systems:: pertinent systems reviewed and negative unless documented below Constitutional Constitutional: Reports system reviewed and no additional complaints, except as documented Eyes Eyes: Reports system reviewed and no additional complaints, except as documented ENT Ears, Nose, Mouth, and Throat: Reports system reviewed and no additional complaints, except as documented *Cardiovascular Cardiovascular: Reports system reviewed and no additional complaints, except as documented, Denies chest pain, Reports dyspnea, Reports dyspnea on exertion and Reports leg edema *Respiratory Respiratory: Reports system reviewed and no additional complaints, except as documented, Reports chest congestion, Reports cough, Reports dyspnea, Reports dyspnea on exertion and Reports excessive phlegm production *Gastrointestinal Gastrointestinal: Reports system reviewed and no additional complaints, except as documented *Musculoskeletal Musculoskeletal: Reports system reviewed and no additional complaints, except as documented Integumentary/Breasts Skin/Breast: Reports system reviewed and no additional complaints, except as documented *Neurologic Neurologic: Reports system reviewed and no additional complaints, except as documented Psychiatric Psychiatric: Reports system reviewed and no additional complaints, except as documented Endocrine Endocrine: Reports system reviewed and no additional complaints, except as documented Hematologic/Lymphatic Hematologic/Lymphatic: Reports system reviewed and no additional complaints, except as documented Allergic/Immunologic Allergic/Immunologic: Reports system reviewed and no additional complaints, except as documented Exam Data for Last 24 hours Vital signs
--- NOTE | 2022-05-08 10:18 | IR_ITS ---
APPROVED REPORT Patient Location: Inpatient PROCEDURES Right heart catheterization Left heart catheterization Left ventriculogram Selective coronary angiogram Left internal mammary angiography Bare-metal stent deployment to the left subclavian artery proximal to the left internal mammary artery takeoff Selective engagement of saphenous vein graft to the circumflex artery Selective engagement of saphenous vein graft to the right coronary Bilateral selective renal angiography Left retrograde femoral angiogram Catheter placed in the right common iliac artery Right common iliac artery antegrade angiogram Bare-metal stent deployment to the right external iliac artery INDICATION Acute non-ST elevation myocardial infarction, Coronary artery disease, History of coronary bypass surgery, 67 mm gradient across the left subclavian artery which was proximal to the takeoff of the left internal mammary artery which supplies the LAD, Left subclavian artery stenosis, Chronic renal failure, Malignant hypertension, Renovascular hypertension suspected with a creatinine of 1.6, Peripheral artery disease, Severely diminished pulse in the right femoral artery, Right external iliac artery disease, Left common and external iliac artery atheromatous plaque with history of stenting, Pulmonary hypertension, Biventricular congestive heart failure Informed consent was obtained prior to the procedure. COMPLICATIONS NONE Estimated Blood Loss: LESS THAN 10 ML TECHNIQUE 1% lidocaine used anesthetize right groin the right femoral vein was accessed via the sounder technique and a 7 Dominican sheath was placed in the right femoral vein. The right femoral artery was severely diminished therefore 1% lidocaine was used anesthetize the left groin the left femoral arteries accessed via Salinger technique. A 5 Dominican sheath was placed in the left femoral artery retrograde angiography was performed and the wire would not traverse the iliofemoral vessel. An advantage wire was used to negotiate through the stenoses within the left common iliac artery and a JL 4 catheter was used to perform left selective angiography. The JR4 catheter was then used to perform left subclavian angiography. Because of a critical stenosis with some difficulty getting into the left subclavian artery it was decided to intervene on the left subclavian artery without losing access to the vessel. Therapeutic heparin was administered and the 5 Dominican sheath was exchanged for 90 cm 7 Dominican sheath. The sheath was advanced over the wire into the left subclavian artery. An advantage wire was used to traverse the heavily calcified left subclavian artery stenosis which was producing a 67 mm gradient across the stenotic lesion. An 9 mm x 40 mm balloon mounted stent was deployed at 14 souleymane reducing the critical stenosis to less than 10%. After achieving excellent angiograph results the apparatus was removed and the SNYDER catheter was used to perform selective engagement of the saphenous vein graft to the right coronary and circumflex artery. At the end of the procedure the apparatus was really moved and a JR4 catheter was placed into the right common iliac artery where antegrade angiography was performed. The wire was then advanced through the severe stenosis and an 8 mm x 40 mm self-expanding stent was placed in the right external iliac artery extending back into the right common iliac artery. An 8 mm x 20 mm balloon was then deployed at 15 souleymane to post dilate and to reduce the stenosis. Excellent angiographic results were obtained. At the end of procedure the apparatus was removed the groin is reprepped gloves were changed left femoral sheath was removed and hemostasis was achieved using Angio-Se
--- NOTE | 2022-05-08 13:43 | PC.NURSE ---
Pt off floor at this time for procedure;
--- NOTE | 2022-05-08 15:20 | PC.NURSE ---
report received from Anoop Alexander RN
[2022-05-08 15:23] LABS: CATHL Arterial O2 SAT 42.8 % (90-100); CATHL Venous O2 SAT 44.5 % (75-80)
[2022-05-08 15:24] LABS: CATHL Activated Clotting Time 350 SEC (74-125)
--- NOTE | 2022-05-08 15:38 | PC.NURSE ---
Pt arrived back to her room via stretcher per track laborer staff
--- NOTE | 2022-05-08 17:25 | PC.NURSE ---
Pt is alert and oriented x4. She is s/p lt and rt heart cath. Bilateral femoral sites. Both have gauze and tegaderm covering them and are clean, dry and intact. +1 pulse in left dorsalis pedis. Very faint pulse noted to rt dorsalis pedis. BLE are warm and dry with some redness to RLE. +1 edema to BLE. Very small scab noted to coccyx and scattered scabbing noted to BUE. BP's been soft with systolic running 80's-90's. She's been paced on telemetry. She remains on 2L NC with oxygen sats measuring >95%. Rhonchi and crackles noted to lungs. She is currently resting in bed with family at bedside. Bed is locked and in the lowest position, call light is within reach.
[2022-05-09] VITALS (7 sets, daily range): BP systolic 122–142; BP diastolic 51–74; PULSE 51–101; RESP 16–22; TEMP 36.6–37.2; O2SAT 90–99; BMI 29.1
--- NOTE | 2022-05-09 06:00 | PC.NURSE ---
pt slept most of the night, vss, pt is alert and oriented x4, purewick in place due to iv diuretics, lung sounds with inspiratory and expiratory wheezing, fine crackles noted to left lower bases, 02 at 2L pnc with 02 sats 92%, mild generalized edema noted, right lower ankle red, 1+ pedal pulses noted, 2+ pedal pulses to left, bilateral groin cath sites with dressings cdi, no drainage or hematoma noted, no acute distress.
[2022-05-09 07:05] LABS: Basophils # 0.1 K/mm3 (0-0.2); Basophils % 0.6 % (0.1-2.0); Eosinophils # 0.1 K/mm3 (0.0-0.4); Hematocrit 31.1 % (37.0-47.0); Hemoglobin 9.9 g/dL (12.2-16.2); Lymphocytes % 8.8 % (10-50); Mean Corpuscular HGB Conc 31.7 g/dL (31.8-35.4); Mean Corpuscular Hemoglobin 26.5 pg (27.0-31.2); Mean Corpuscular Volume 83.4 fl (81-99); Mean Platelet Volume 9.1 fl (7.4-10.4); Monocytes # 0.6 K/mm3 (0.1-1.0); Monocytes % 5.4 % (1.7-9.3); Neutrophils # 9.6 K/mm3 (1.8-7.8); Neutrophils % 84.1 % (37.0-80.0); Platelet Count 332 K/mm3 (142-424); Red Blood Count 3.73 M/mm3 (4.20-5.40); Red Cell Distribution Width 18.9 % (11.5-17.5); White Blood Count 11.5 K/mm3 (4.8-10.8)
[2022-05-09 07:14] LABS: Anion Gap 10.5 mEq/L (5-15); Blood Urea Nitrogen 20 mg/dl (7-17); Calcium 7.8 mg/dl (8.4-10.2); Carbon Dioxide 31 mmol/L (22.0-30.0); Chloride 99 mmol/L (98-107); Creatinine Clearance Estimated 68 mL/min (50-200); Estimated Glomerular Filt Rate 63 ml/min (>60); GFR (African American) 77 ML/MIN (>60); Glucose 149 mg/dl (74-100); Potassium 3.5 mmoL/L (3.5-5.1); Sodium 137 mmol/L (136-145)
[2022-05-09 07:23] LABS: NT Pro Brain Natriuretic Pep. 3220 pg/mL (0-125)
[2022-05-09 07:32] LABS: Procalcitonin 0.299 ng/mL (0.0-2.0)
--- NOTE | 2022-05-09 10:00 | EXP.PN ---
Subjective *Date: 05/09/22 *Time: 10:00 Interval history: Date of service May 09, 2022 The patient reports no acute events overnight. She denies chest pain or acute dyspnea. I am accompanied by Morgan BARRIOS her nurse for evaluation today. He reports that she remains afebrile with stable vital signs and saturating appropriately on 2 L of oxygen via nasal cannula. He reports effective diuresing with her IV loop diuretic therapy. Her urine container is completely filled (PureWick). We have reviewed and discussed her morning labs. I have personally interpreted her labs as follows: CBC with an improved leukocytoses white blood cell count 11.5, hemoglobin 9.9, hematocrit 31, platelets 332. Her electrolytes are normal with a bicarb of 31, BUN of 20 and creatinine 0.9. Her glucose trend is under 200. Her morning BNP is 3220. Exam Data for Last 24 hours Vital signs and Labs for Last 24 Hours: Temp Pulse Resp BP Pulse Ox 98.9 F 72 22 130/53 L 96 05/09/22 08:00 05/09/22 08:00 05/09/22 08:00 05/09/22 08:00 05/09/22 08:00 Laboratory Results - last 24 hr 05/08/22 14:53: ABG O2 Sat (Measured) 42.8 L, POC VBG O2 Sat (Do) 44.5 L 05/08/22 15:32: Activated Clotting Time 350 H* 05/09/22 06:57: WBC 11.5 H D, RBC 3.73 L, Hgb 9.9 L, Hct 31.1 L, MCV 83.4, MCH 26.5 L, MCHC 31.7 L, RDW 18.9 H, Plt Count 332, MPV 9.1, Neut % (Auto) 84.1 H, Lymph % (Auto) 8.8 L, [place] % (Auto) 5.4, Eos % (Auto) 1.0, Baso % (Auto) 0.6, Neut # (Auto) 9.6 H, Lymph # (Auto) 1.0, [place] # (Auto) 0.6, Eos # (Auto) 0.1, Baso # (Auto) 0.1 05/09/22 06:57: Sodium 137, Potassium 3.5, Chloride 99, Carbon Dioxide 31 H, Anion Gap 10.5, BUN 20 H, Creatinine 0.90 D, Estimated Creat Clear 68, Estimated GFR 63, Est GFR ( Amer) 77 D, Glucose 149 H, Calcium 7.8 L, NT-Pro-B Natriuret Pep 3220 H, Procalcitonin 0.299 I & O for Last 24 hours: Intake & Output 05/06/22 05/07/22 05/08/22 05/09/22 23:59 23:59 23:59 23:59 Intake Total 306 / 306 1320 / 1320 Output Total 3850 / 4350 1750 / 1750 Balance -3544 / -4044 -430 / -430 Weight 68.039 kg 70.08 kg 74.531 kg Microbiology Reports for the Last 24 Hours: Microbiology 05/08/22 05:37 Sputum - Expectorated Sputum Gram Stain - Final Constitutional Constitutional: no acute distress, chronically ill appearing and cooperative *Routine HEENT Exam Head: Present normocephalic Eye: Present EOMI and PERRL ENT: Present mucous membranes moist *Routine Neck Exam Neck: Present supple; Absent lymphadenopathy *Routine Respiratory Exam Respiratory: Present rhonchi, crackles, normal respiratory effort and symmetric chest movement *Routine Cardiovascular Exam Cardiovascular: Present RRR and murmur *Routine Abdominal Exam Abdominal: Present soft and normoactive bowel sounds; Absent tenderness *Routine Extremities Exam Extremities: Present full ROM, pulses intact and normal capillary refill; Absent cyanosis, clubbing or edema Comments: No pedal edema *Routine Skin Exam Skin: Present warm; Absent rash *Routine Neurological Exam Neurological: Present alert, oriented X3, moving all extremities, vision grossly intact, hearing grossly intact and normal speech Routine Psychiatric Exam Psychiatric: Present normal affect, normal thought process, cooperative, good insight and good judgment Assessment and Plan *Assessment and plan (1) Non-STEMI (non-ST elevated myocardial infarction): Status: Acute Category: Medical Code(s): I21.4 - Non-ST elevation (NSTEMI) myocardial infarction (2) CAD (coronary artery disease): Status: Acute Qualifiers: Coronary Disease-Associated Artery/Lesion type: bypass graft [place] vs. transplanted heart: lime heart Associated angina: with other forms of angina Qualified Code(s): I25.708 - Atherosclerosis of coronary artery bypass graft(s), unspecified, with other forms of angina pectoris Category: Medical Code(s): I25.10 - Atherosclerotic he
[2022-05-09 11:46] LABS: NT Pro Brain Natriuretic Pep. 3590 pg/mL (0-125)
--- NOTE | 2022-05-09 18:37 | PC.NURSE ---
pt is alert and oriented x4, purewick removed by pt and she does not want it re-applied, expiratory wheezing, on auscutation,02 at 2L pnc with 02 sats 92%, bilateral groin cath sites with dressings cdi, no needs voiced , family at bedside most of shift.
[2022-05-09 20:46] LABS: POC Glucose,Bedside 214 (70-110)
[2022-05-10] VITALS (11 sets, daily range): BP systolic 124–147; BP diastolic 57–63; PULSE 70–90; RESP 16–20; TEMP 36.4–37; O2SAT 90–98; BMI 28.3; BMI 28.2
--- NOTE | 2022-05-10 05:39 | PC.NURSE ---
no acute distress, vss, pt is alert and oriented x4, lung sounds with scattered wheezes and crackles, 02 sats 90% on room air and 93% on 2L pnc, pt will use 02 when she feels she needs it, telemetry reveals paced with bbb, prolonged qt, no other issues noted at this time.
[2022-05-10 06:28] LABS: POC Glucose,Bedside 185 (70-110)
[2022-05-10 07:51] LABS: Anion Gap 9.6 mEq/L (5-15); Blood Urea Nitrogen 23 mg/dl (7-17); Calcium 7.6 mg/dl (8.4-10.2); Carbon Dioxide 27 mmol/L (22.0-30.0); Chloride 100 mmol/L (98-107); Creatinine Clearance Estimated 66 mL/min (50-200); Estimated Glomerular Filt Rate 63 ml/min (>60); GFR (African American) 77 ML/MIN (>60); Glucose 129 mg/dl (74-100); Potassium 3.6 mmoL/L (3.5-5.1); Sodium 133 mmol/L (136-145)
[2022-05-10 07:56] LABS: Basophils # 0.1 K/mm3 (0-0.2); Basophils % 0.6 % (0.1-2.0); Eosinophils # 0.1 K/mm3 (0.0-0.4); Eosinophils % 1.4 % (0.1-12.0); Hematocrit 30.9 % (37.0-47.0); Lymphocytes # 1.1 K/mm3 (0.7-4.5); Lymphocytes % 14.5 % (10-50); Mean Corpuscular HGB Conc 32.3 g/dL (31.8-35.4); Mean Corpuscular Hemoglobin 26.6 pg (27.0-31.2); Mean Corpuscular Volume 82.4 fl (81-99); Mean Platelet Volume 10.2 fl (7.4-10.4); Monocytes # 0.6 K/mm3 (0.1-1.0); Monocytes % 7.4 % (1.7-9.3); Neutrophils % 76.2 % (37.0-80.0); Platelet Count 349 K/mm3 (142-424); Red Blood Count 3.75 M/mm3 (4.20-5.40); Red Cell Distribution Width 18.7 % (11.5-17.5); White Blood Count 7.9 K/mm3 (4.8-10.8)
--- NOTE | 2022-05-10 08:47 | EXP.PN ---
Subjective *Date: 05/10/22 *Time: 08:47 Interval history: Date of service May 10, 2022 The patient reports no acute events overnight. She reports effective diuresis. Nursing staff report that she remains afebrile with stable vital signs and saturating appropriately on room air. They have documented 1200 cc of urine output. Her net balance is -600 cc. We have reviewed and discussed her morning labs. I have personally interpreted her labs as follows: CBC with a normal white blood cell count 7.9 hemoglobin 10 and platelet count 349. Her electrolytes are normal with potassium 3.6. BUN is 23 and creatinine 0.9. Her glucose are under 150. Her hemoglobin A1c is 7%. A repeat echocardiogram identifies an ejection fraction of 55% with LVH and elevated right ventricular systolic pressure. Exam Data for Last 24 hours Vital signs and Labs for Last 24 Hours: Temp Pulse Resp BP Pulse Ox 98.4 F 83 18 147/61 H 91 L 05/10/22 07:32 05/10/22 07:32 05/10/22 07:32 05/10/22 07:32 05/10/22 08:00 Laboratory Results - last 24 hr 05/09/22 11:23: NT-Pro-B Natriuret Pep 3590 H 05/09/22 20:23: POC Glucose 214 H 05/10/22 06:05: POC Glucose 185 H 05/10/22 07:10: WBC 7.9 D, RBC 3.75 L, Hgb 10.0 L, Hct 30.9 L, MCV 82.4, MCH 26.6 L, MCHC 32.3, RDW 18.7 H, Plt Count 349, MPV 10.2, Neut % (Auto) 76.2, Lymph % (Auto) 14.5, [place] % (Auto) 7.4, Eos % (Auto) 1.4, Baso % (Auto) 0.6, Neut # (Auto) 6.0, Lymph # (Auto) 1.1, [place] # (Auto) 0.6, Eos # (Auto) 0.1, Baso # (Auto) 0.1 05/10/22 07:10: Sodium 133 L, Potassium 3.6, Chloride 100, Carbon Dioxide 27, Anion Gap 9.6, BUN 23 H, Creatinine 0.90, Estimated Creat Clear 66, Estimated GFR 63, Est GFR ( Amer) 77, Glucose 129 H, Calcium 7.6 L 05/10/22 07:10: Hemoglobin A1c 7.0 H I & O for Last 24 hours: Intake & Output 05/07/22 05/08/22 05/09/22 05/10/22 23:59 23:59 23:59 23:59 Intake Total 306 / 306 2400 / 2400 600 / 600 Output Total 3850 / 4350 2250 / 2550 1200 / 1200 Balance -3544 / -4044 150 / -150 -600 / -600 Weight 68.039 kg 70.08 kg 74.531 kg 72.376 kg Microbiology Reports for the Last 24 Hours: Microbiology 05/08/22 00:39 Blood Blood Culture - Preliminary NO GROWTH AFTER 48 HOURS 05/08/22 00:39 Blood Blood Culture - Preliminary NO GROWTH AFTER 48 HOURS 05/08/22 05:37 Sputum - Expectorated Sputum Gram Stain - Final 05/08/22 05:37 Sputum - Expectorated Sputum Sputum Culture - Preliminary Constitutional Constitutional: no acute distress, chronically ill appearing and cooperative *Routine HEENT Exam Head: Present normocephalic Eye: Present EOMI and PERRL ENT: Present mucous membranes moist *Routine Neck Exam Neck: Present supple; Absent lymphadenopathy *Routine Respiratory Exam Respiratory: Present rhonchi, crackles, normal respiratory effort and symmetric chest movement *Routine Cardiovascular Exam Cardiovascular: Present RRR and murmur *Routine Abdominal Exam Abdominal: Present soft and normoactive bowel sounds; Absent tenderness *Routine Extremities Exam Extremities: Present full ROM, pulses intact and normal capillary refill; Absent cyanosis, clubbing or edema Comments: No pedal edema *Routine Skin Exam Skin: Present warm; Absent rash *Routine Neurological Exam Neurological: Present alert, oriented X3, moving all extremities, vision grossly intact, hearing grossly intact and normal speech Routine Psychiatric Exam Psychiatric: Present normal affect, normal thought process, cooperative, good insight and good judgment Assessment and Plan *Assessment and plan (1) Non-STEMI (non-ST elevated myocardial infarction): Status: Acute Category: Medical Code(s): I21.4 - Non-ST elevation (NSTEMI) myocardial infarction (2) CAD (coronary artery disease): Status: Acute Qualifiers: Coronary Disease-Associated Artery/Lesion type: bypass graft [place] vs. transplanted heart
--- NOTE | 2022-05-10 09:51 | HMH.PTEV ---
Physical Therapy Evaluation Rehab PT IP Evaluation Start: 05/09/22 10:41 Freq: ONCE Status: Active Protocol: Document 05/10/22 09:48 FAITH (Rec: 05/10/22 09:51 FAITH [id number]) Subjective/History History History 61 yowf adm to [facility] with PNA, CAD, and CHF exac. She reports she was independent with all mobility prior to adm without AD. She also reports she lives with her mother, 2-3 steps to enter the home. Subjective Subjective No c/o this am other than feeling tied from not sleeping well last night. Rehab PT IP Eval Objective Appearance Patient Behavior Appropriate Patient Orientation Person,Place,Time Difficulty following instructions none Speech Pattern Clear Ambulation Patient Able to Ambulate Yes Ambulation Observation IP General Gait Pattern Observation No Deviations/Normal Ambulation Distance (feet) 40 Ambulation Assistive Device None Ambulation Ability Independent Balance Ability to Arise Able, uses arms to help Sitting Balance Steady, safe Standing Balance Narrow stance w/o support Dynamic Sitting Balance Ability Good Dynamic Standing Balance Ability Good Transfers Bed Transfer Ability Independent Chair Transfer Ability Independent Sit to Stand Bed Transfer Ability Independent Sit to Stand Chair Transfer Ability Independent ROM All Extremities PT ROM Status WFL MMT All Extremities PT MMT WFL Rehab PT IP prob,goals,plan Problems Date of Evaluation: 05/10/22 Discharge Plan PT Discharge Plan Pt presents at baseline for all mobility this am, no current inpatient therapy needs. She is appropriate to return home once medically stable for d/c. G -code Required No Eval Complexity Eval Charge Codes 34392 - Moderate Complexity PHYSICIAN CERTIFICATION: I certify the specified therapy services for Carlos Galindo are required, authorized, and reviewed every 30 days.
[2022-05-10 20:49] LABS: POC Glucose,Bedside 230 (70-110)
[2022-05-11] VITALS: PULSE 83
[2022-05-11 04:00] VITALS: BP 132/62; PULSE 75; PULSE 80; RESP 16; TEMP 36.7; O2SAT 90; BMI 27.3
[2022-05-11 06:23] LABS: Anion Gap 6.1 mEq/L (5-15); Blood Urea Nitrogen 20 mg/dl (7-17); Calcium 8.1 mg/dl (8.4-10.2); Carbon Dioxide 32 mmol/L (22.0-30.0); Chloride 101 mmol/L (98-107); Creatinine Clearance Estimated 64 mL/min (50-200); Estimated Glomerular Filt Rate 72 ml/min (>60); GFR (African American) 88 ML/MIN (>60); Glucose 147 mg/dl (74-100); Potassium 3.1 mmoL/L (3.5-5.1); Sodium 136 mmol/L (136-145)
[2022-05-11 06:38] LABS: NT Pro Brain Natriuretic Pep. 3190 pg/mL (0-125)
[2022-05-11 07:26] VITALS: BP 143/70; PULSE 80; RESP 18; TEMP 36.4; O2SAT 90
[2022-05-11 08:00] VITALS: PULSE 80; RESP 15; O2SAT 90
--- NOTE | 2022-05-11 08:51 | EXP.CARD.PN ---
Subjective Subjective Date: 05/11/22 Time: 08:00 Principal diagnosis: pulmonary htn Interval history: Doing well, denies chest pain, reports soa has greatly improved. -2370 balance. Am labs reviewed. Right and left heart cath 05/08/2022 PLAN 1. Dual antiplatelet therapy 2. Aggressive treatment for left-sided diastolic dysfunction.? Patient requires large amounts of diuretics in order to decrease LVEDP 3. Aggressively treat with Bumex and heavily diurese patient in order to decrease filling pressures 4. Cardiac rehabilitation 5. Avoidance of tobacco products 6. After patient has been diuresed I would recommend a CardioMEMS based on patient's severe diastolic heart failure 7. LDL less than 55 to be achieved with high intensity statin Exam Data for Last 24 hours Vital signs and Labs for Last 24 Hours: Temp Pulse Resp BP Pulse Ox 97.6 F 80 18 143/70 H 90 L 05/11/22 07:26 05/11/22 07:26 05/11/22 07:26 05/11/22 07:26 05/11/22 07:26 Laboratory Results - last 24 hr 05/10/22 20:24: POC Glucose 230 H 05/11/22 05:22: Sodium 136, Potassium 3.1 L, Chloride 101, Carbon Dioxide 32 H, Anion Gap 6.1, BUN 20 H, Creatinine 0.80, Estimated Creat Clear 64, Estimated GFR 72, Est GFR ( Amer) 88, Glucose 147 H, Calcium 8.1 L, NT-Pro-B Natriuret Pep 3190 H I & O for Last 24 hours: Intake & Output 05/08/22 05/09/22 05/10/22 05/11/22 23:59 23:59 23:59 23:59 Intake Total 306 / 306 2400 / 2400 1320 / 1320 360 / 360 Output Total 3850 / 4350 2250 / 2550 3300 / 3300 1350 / 1350 Balance -3544 / -4044 150 / -150 -1979 / -1979 -990 / -990 Weight 154 lb 8 oz 164 lb 5 oz 159 lb 6.307 oz 154 lb 7 oz Constitutional Constitutional: no acute distress *Routine Respiratory Exam Respiratory: Present wheezes and symmetric chest movement *Routine Cardiovascular Exam Cardiovascular: Present RRR, Normal S1 and Normal S2 *Routine Abdominal Exam Abdominal: Present soft and normoactive bowel sounds; Absent tenderness *Routine Extremities Exam Extremities: Present full ROM and normal capillary refill; Absent edema *Routine Skin Exam Skin: Present intact, dry and warm Detailed Neck Exam: Thyroids Thyroid: Absent bruit Progress Note: A&P Assessment and plan (1) Non-STEMI (non-ST elevated myocardial infarction): Status: Acute (2) CAD (coronary artery disease): Status: Acute (3) Acute heart failure with preserved ejection fraction: Status: Acute (4) Acute respiratory failure with hypoxia: Status: Acute (5) Severe pulmonary hypertension: Status: Acute (6) Atrial fibrillation: Status: Acute (7) Chronic hypotension: Status: Acute (8) Diabetes: Status: Acute (9) Tobacco abuse: Status: Acute Assessment and Plan Assessment and Plan for All Diagnoses:: Plan: 1.? This is a 61-year-old white female who was admitted to the hospital with shortness of breath.? The patient was found to have a CHF and COPD exacerbation.? She was also found to have an elevated troponin consistent with a non-STEMI.? The patient does have a known history of significant coronary artery disease and a history of coronary artery bypass grafting.? Given her non-STEMI we will plan to proceed with left cardiac catheterization today to evaluate her coronary artery disease. 2.? The patient has been educated on the risk and benefits of proceeding with left cardiac catheterization.? She verbalizes understanding and is agreeable proceeding with the procedure. 3.? We will repeat an echocardiogram to evaluate her LV function secondary to her prior acute exacerbation of congestive heart failure. 4.? The patient will be n.p.o. in preparation for left cardiac catheterization. 5.? The patient will get premedications prior to procedure. 6.? Coronary artery disease is present 7.? Her blood pressure is on the low side but she has been chronically running hypotensive.? Dr. Niño does not want to stop her heart failure medications at thi
--- NOTE | 2022-05-11 08:56 | EXP.PHA.PN ---
Subjective *Date: 05/11/22 *Time: 08:56 Medical Exam Vital signs and Labs for Last 24 Hours: Vital Signs Temp Pulse Pulse Resp BP Pulse Ox 05/11/22 07:26 97.6 F 80 18 143/70 H 90 L 05/11/22 04:00 80 05/11/22 00:00 83 05/11/22 04:00 98.1 F 75 16 132/62 90 L 05/10/22 20:00 80 05/10/22 23:50 98.6 F 84 16 136/62 90 L 05/10/22 19:46 98.0 F 80 16 140/63 98 05/10/22 16:00 80 05/10/22 12:00 70 05/10/22 15:00 98.2 F 81 19 127/58 L 97 05/10/22 10:57 98.0 F 75 17 139/61 92 L Intake and Output 05/10/22 05/11/22 05/11/22 23:59 07:59 15:59 Intake Total 360 / 1320 360 / 360 Output Total 2100 / 3300 1350 / 1350 Balance -1740 / -1980 -990 / -990 Intake: Intake, Oral Amount 360 / 960 360 / 360 Output: Output, Urine Amount 2100 / 3300 1350 / 1350 Other: Number of Unmeasured Voids 0 0 Weight 70.052 kg Patient Weight 05/11/22 23:59 Weight 70.052 kg Laboratory Results - last 24 hr 05/10/22 20:24: POC Glucose 230 H 05/11/22 05:22: Sodium 136, Potassium 3.1 L, Chloride 101, Carbon Dioxide 32 H, Anion Gap 6.1, BUN 20 H, Creatinine 0.80, Estimated Creat Clear 64, Estimated GFR 72, Est GFR ( Amer) 88, Glucose 147 H, Calcium 8.1 L, NT-Pro-B Natriuret Pep 3190 H I & O for Labs for Last 24 Hours: Intake & Output 05/08/22 05/09/22 05/10/22 05/11/22 23:59 23:59 23:59 23:59 Intake Total 306 / 306 2400 / 2400 1320 / 1320 360 / 360 Output Total 3850 / 4350 2250 / 2550 3300 / 3300 1350 / 1350 Balance -3544 / -4044 150 / -150 -1979 / -1979 -990 / -990 Weight 70.08 kg 74.531 kg 72.3 kg 70.052 kg The patient's infection will respond to the chosen ABx?: Yes (SPUTUM PENDING, AFEBRILE GREATER THAN 24 HOURS.) Is the patient receiving the right drug, dose, and route?: Yes Could a more targeted ABx be ordered?: No
--- NOTE | 2022-05-11 10:00 | HMH.OTEV ---
OT Inpatient Evaluation Rehab OT IP Evaluation Start: 05/09/22 10:41 Freq: ONCE Status: Active Protocol: [facility] (Rec: 05/11/22 09:59 [facility] [id number]) Rehab OT IP Assessment Subjective History Pt was seen resting in bed upon arrivial. Pt is oriented x3 person, place, and . Pt was agreeable to engage in therapy session. Pt was admitted to [facility] on 05/08/22 due to Shortness of air, cough. She reports that she was independent in all ADLs and IADLs. Pt reports that she lives at home with her mother, and reports that her mother is in good health. She reports that her mom assists with cooking and cleaning tasks. Pt reports that she is still able to drive. Pt reports that she does not use a walker or oxygen at home. Pt has a past medical history of the following: Abnormal electrocardiography Afib Angina pectoris Atrial fibrillation COPD (chronic obstructive pulmonary disease) Dyspnea Edema Hyperlipidemia Hypotension Sinus tachycardia Pt was left sitting at eob bed with call byrd and all other needs within reach. Subjective I'm ready to go home. Objective Patient Orientation Person,Place,Birthday Upper Extremity Gross ROM WNL Bed Mobility bed mobility-scooting,bed mobility - supine/sit Assist Level Independent Transfer Training Sit/Stand Transfer Assist Level Independent Lower Body Dressing Ability Independent Overall Commode/Toilet Transfer Ability Independent decrease in endurance Yes Rehab OT IP prob,goals,plan Problems Date of Evaluation: 05/11/22 Rehab Potential Rehab Potential Innapropriate for Skilled Therapy Discharge Plan
[2022-05-11 11:11] VITALS: BP 137/70; PULSE 81; RESP 18; TEMP 36.6; O2SAT 95
[2022-05-11 11:36] LABS: POC Glucose,Bedside 173 (70-110)
[2022-05-11 12:15] LABS: Chloride 100 mmol/L (98-107); Potassium 3.8 mmoL/L (3.5-5.1); Sodium 139 mmol/L (136-145)
[2022-05-11 12:18] LABS: Anion Gap 10.8 mEq/L (5-15); Blood Urea Nitrogen 17 mg/dl (7-17); Calcium 8.4 mg/dl (8.4-10.2); Carbon Dioxide 32 mmol/L (22.0-30.0); Creatinine Clearance Estimated 64 mL/min (50-200); Estimated Glomerular Filt Rate 63 ml/min (>60); GFR (African American) 77 ML/MIN (>60); Glucose 155 mg/dl (74-100)
--- NOTE | 2022-05-11 13:31 | EXP.DC.SUM ---
General Admission date:: 05/08/22 Discharge date: 05/11/22 HPI HPI HPI: Ms. Galindo is a 61-year-old female with a past medical history that is positive for HFpEF, chronic hypotension, COPD, not home oxygen dependent, Atrial Fibrillation on chronic anticoagulation, CAD. She presents to [facility] through the ER due to shortness of air and cough that has been progressively worsening over a 1-week period. She denies fevers, body aches or chills. She reports worsening leg edema despite diuretics. In the ER, CTA of the chest showed patchy right lower lobe consolidations and scattered right lung nodular opacities and recommended CT of the chest follow-up in 3 months. It also showed periportal edema suggestive of right sided failure. EKG showed a Right Bundle Branch Block. BNP was elevated at 4,040. Troponin was elevated at 0.10. The patient will be admitted with initial impression: CAP, CHF exacerbation and elevated Troponin. Cardiology will be consulted to see. She will be placed on antibiotics and cultures drawn. The plan of care was discussed with the patient on admission. She verbalized understanding and agreement with the plan of care. Hospital Course Hospital Course Hospital Course: The patient was admitted to the medical unit with telemetry and pulse oximetry monitoring. Cardiology was consulted and her troponin trend was noted. Cardiology recommended left and right heart cath with her history of heart failure with reduced ejection fraction and findings on CTA of chest identifying abnormal pulmonary artery measurements. Her echo also demonstrated RVSP of 76 mmHg. On May 08, 2022 her right and left heart cath were performed and the patient received Bare-metal stent to the left subclavian artery which improved her blood pressures. During her cath procedure she also underwent successful stenting of the right external iliac artery for peripheral vascular disease. She was maintained on dual antiplatelet therapy and high-dose statin therapy and aggressively diuresed for her left ventricular end-diastolic pressures. She diuresed well and identified significant improvement. Her laboratory studies and inflammatory markers were trended and identified improvement. Her potassium was replaced and on discharge it was 3.9. She inquired about discharge home. She will follow-up with her PCP in 1 week and with cardiology as scheduled. Her discharge medications were reviewed and discharge medication recommendations are as below. She should discontinue her Actos therapy. She will continue a short course of antibiotic therapy for her pneumonia identified on imaging. I spent 35 minutes in [id number] time with the patient and nursing staff concerning the discharge process. We discussed the admitting diagnoses and hospital course. We discussed identified improvement and the patient's desire to be discharged. We reviewed inpatient studies and imaging. 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 The patient plans to be compliant with the medication regimen prescribed and follow-up appointments. She understands that she can return to the emergency department with any sudden changes or concerns. Exam Data for Last 24 hours Vital signs and Labs for Last 24 Hours: Temp Pulse Resp BP Pulse Ox 97.9 F 81 18 137/70 95 05/11/22 11:11 05/11/22 11:11 05/11/22 11:11 05/11/22 11:11 05/11/22 11:11 Laboratory Results - last 24 hr 05/10/22 20:24: POC Glucose 230 H 05/11/22 05:22: Sodium 136, Potassium 3.1 L, Chloride 101, Carbon Dioxide 32 H, Anion Gap 6.1, BUN 20 H, Creatinine 0.80, Estimated Creat Clear 64, Estimated GFR 72, Est GFR ( Amer) 88, Glucose 147 H, Calcium 8.1 L, NT-Pro-B Natriuret Pep 3190 H 05/11/22 11:28: POC Glucose 173 H 05/11/22 12:01: Sodium 139, Potassium 3.8 D, Chloride 100, Carbon Dioxide 32 H, Anion Gap 10.8, BUN 17, Creatin
--- NOTE | 2022-05-11 14:09 | HMH.PHAINT1 ---
Pharmacy Intervention Comments: Discussed discharge medications with patient. Patient verbalized understanding and had no questions at this time
[2022-05-11 22:08] LABS: Body Fluid Culture, Sterile Not indicated. (.); Legionella pneumophila Urinary Negative (Negative); Organism ID Not indicated. (.); Specimen Source Urine (.); Streptococcus pneumoniae Ag Negative (Negative)
--- NOTE | 2022-05-13 10:53 | CARE MANAGER ---
Contacted patient's daughter who states patient is doing well and they deny any questions or concerns at this time. SOPHIE [place]
== END 2022-05-11 14:18 | disposition home or self-care (01) | DRG 252 ==
LOC: ER 23:50 → ICU 05-08 02:11 → 2ND 05-08 18:27
PROVIDERS: Internal Medicine; Nurse Practitioner; Nurse Practitioner Family; Admitting Provider Family Medicine; Emergency Provider Emergency Medicine; PCP Emergency Medicine; Visit Provider Family Medicine
PROC: 4A023N8 Measurement of Cardiac Sampling and Pressure, Bilateral, Percutaneous Approach (ICD-10-PCS; principal; 2022-05-08 12:45)
PROC: 4A023N8 Measurement of Cardiac Sampling and Pressure, Bilateral, Percutaneous Approach (ICD-10-PCS; 2022-05-08 12:45)
DX: I21.4 Non-ST elevation (NSTEMI) myocardial infarction (principal); I50.31 Acute diastolic (congestive) heart failure; J18.9 Pneumonia, unspecified organism; J96.01 Acute respiratory failure with hypoxia; J44.9 Chronic obstructive pulmonary disease, unspecified; I48.91 Unspecified atrial fibrillation; E78.5 Hyperlipidemia, unspecified; Z95.5 Presence of coronary angioplasty implant and graft; Z95.0 Presence of cardiac pacemaker; F17.210 Nicotine dependence, cigarettes, uncomplicated; Z79.01 Long term (current) use of anticoagulants; I77.1 Stricture of artery; I25.119 Atherosclerotic heart disease of native coronary artery with unspecified angina pectoris; Z95.1 Presence of aortocoronary bypass graft; I95.89 Other hypotension; I27.20 Pulmonary hypertension, unspecified; Z79.4 Long term (current) use of insulin; E11.51 Type 2 diabetes mellitus with diabetic peripheral angiopathy without gangrene; I50.82 Biventricular heart failure
CPT/HCPCS: 36415; 37221; 37236; 71046; 71275; 80048; 80053; 80076; 82810; 82962; 83036; 83605; 83880; 84145; 84484; 85007; 85025; 85347; 87040; 87070; 87205; 87899; 93005; 93306; 93461; 97162; 97165; 99152; 99153; 99285; C1725; C1760; C1769; C1876; C1894; C9803; J0456; J0696; J1644; Q9967; U0003; U0005

== ENCOUNTER → 2022-05-25 14:44 | Outpatient (CLI) | payer MEDICARE, SELFPAY ==
[2022-05-25 16:10] LABS: Basophils # 0.1 K/mm3 (0-0.2); Basophils % 0.8 % (0.1-2.0); Eosinophils # 0.1 K/mm3 (0.0-0.4); Eosinophils % 0.5 % (0.1-12.0); Hematocrit 42.8 % (37.0-47.0); Hemoglobin 13.3 g/dL (12.2-16.2); Lymphocytes # 2.1 K/mm3 (0.7-4.5); Lymphocytes % 14.8 % (10-50); Mean Corpuscular HGB Conc 31.1 g/dL (31.8-35.4); Mean Corpuscular Hemoglobin 25.7 pg (27.0-31.2); Mean Corpuscular Volume 82.9 fl (81-99); Mean Platelet Volume 7.9 fl (7.4-10.4); Monocytes # 0.8 K/mm3 (0.1-1.0); Monocytes % 5.4 % (1.7-9.3); Neutrophils # 10.9 K/mm3 (1.8-7.8); Neutrophils % 78.4 % (37.0-80.0); Platelet Count 623 K/mm3 (142-424); Red Blood Count 5.17 M/mm3 (4.20-5.40); Red Cell Distribution Width 18.1 % (11.5-17.5); White Blood Count 13.9 K/mm3 (4.8-10.8)
[2022-05-25 16:24] LABS: Anion Gap 15.1 mEq/L (5-15); Blood Urea Nitrogen 45 mg/dl (7-17); Calcium 10.1 mg/dl (8.4-10.2); Carbon Dioxide 26 mmol/L (22.0-30.0); Chloride 96 mmol/L (98-107); Estimated Glomerular Filt Rate 38 ml/min (>60); GFR (African American) 46 ML/MIN (>60); Glucose 196 mg/dl (74-100); Potassium 5.1 mmoL/L (3.5-5.1); Sodium 132 mmol/L (136-145)
== END ==
PROVIDERS: PCP Emergency Medicine; Visit Provider Nurse Practitioner
DX: E78.2 Mixed hyperlipidemia (principal); I25.708 Atherosclerosis of coronary artery bypass graft(s), unspecified, with other forms of angina pectoris; I27.20 Pulmonary hypertension, unspecified; I48.20 Chronic atrial fibrillation, unspecified; I50.33 Acute on chronic diastolic (congestive) heart failure; Z72.0 Tobacco use; Z95.0 Presence of cardiac pacemaker; Z95.1 Presence of aortocoronary bypass graft; Z98.890 Other specified postprocedural states
CPT/HCPCS: 36415; 80048; 85025

== ENCOUNTER 2022-07-24 17:47 | Inpatient (IN) | payer MEDICARE, SELFPAY ==
[2022-07-24] VITALS (10 sets, daily range): BP systolic 72–132; BP diastolic 32–77; PULSE 79–82; RESP 15–37; TEMP 36.8–37.2; O2SAT 92–100; BMI 24.6
--- NOTE | 2022-07-24 18:03 | ECG_ITS ---
APPROVED REPORT Exam: Resting ECG HR:80 bpm ECG Measurements Heart Rate 80 AXES QRSd 188 QRS 257 QT 442 T 72 QTc 477 Conclusion ELECTRONIC VENTRICULAR PACEMAKER ABNORMAL RHYTHM ECG UNCONFIRMED REPORT Electronically signed by : Gus Young MD 07/25/2022 15:30:30
--- NOTE | 2022-07-24 18:13 | XR_ITS ---
PROCEDURE INFORMATION: Exam: XR Chest Exam date and time: 07/24/2022 6:39 PM Age: 62 years old Clinical indication: Other: Pre syncope; Additional info: Pre syndope TECHNIQUE: Imaging protocol: Radiologic exam of the chest. Views: 1 view. COMPARISON: CR XR CHEST 2V 05/08/2022 12:09 AM FINDINGS: Tubes, catheters and devices: AICD in place with leads in stable position. Lungs: Interval improvement in aeration of the bilateral lower lungs compared with 05/08/2022 chest radiograph. No evidence of new or worsening airspace disease. No appreciable pulmonary edema. Pleural spaces: No large pleural effusion. No pneumothorax. Heart/Mediastinum: Cardiomediastinal silhouette is unchanged, noting post-operative changes of prior CABG. Bones/joints: No evidence of acute osseous abnormality. IMPRESSION: Interval improvement in aeration of the bilateral lower lungs compared with 05/08/2022 chest radiograph. No evidence of new or worsening airspace disease.
--- NOTE | 2022-07-24 18:14 | HMH.EDGENADL ---
Discharge Plan Disposition Patient Disposition: Admitted As Inpatient Condition: Serious Chief Complaint: Weakness Prescriptions Prescriptions: No Action clopidogrel 75 mg tablet 75 mg PO DAILY Label Comments: TAKE 1 TABLET BY MOUTH ONCE DAILY Eliquis 5 mg tablet 5 mg PO BID spironolactone [Aldactone] 50 mg tablet 50 mg PO BID Qty: 180 3RF atorvastatin 80 MG tablet 80 mg PO HS trazodone 150 MG tablet 150 mg PO HS metformin 1,000 MG tablet 1,000 mg PO BID paroxetine HCl 40 MG tablet 40 mg PO DAILY aripiprazole 5 MG tablet 5 mg PO DAILY magnesium oxide 400 MG tablet 400 mg PO DAILY insulin glargine 100 UNIT/ML insulin pen 80 units SQ HS albuterol sulfate 8.5 GM HFA aerosol inhaler 2 inh inhalation Q4HP PRN (Reason: Shortness Of Breath Or Wheezing) aspirin 81 mg Tablet,Delayed Release (Dr/Ec) 81 mg PO DAILY Qty: 30 0RF Jardiance 10 mg Tablet 10 mg PO DAILY Qty: 30 0RF potassium chloride 20 mEq tablet extended release 40 meq PO DAILY Qty: 60 0RF bumetanide 2 mg tablet 2 mg PO TID Qty: 90 0RF yhcooqzvyqt-nlmagkaqh-hnbplenb 28 PUFF blister with device 1 puff inhalation DAILY Referrals Follow up/Referrals: Jose Mayers MD [Primary Care Provider] - See instructions Clinical Impressions Clinical Impression: LESLEE (acute kidney injury), Hypovolemia dehydration, Acute hyperkalemia Discharge ED Provider: Narayan White General Adult HPI General Chief complaint: Weakness Stated complaint: Dizziness Time Seen by Provider: 07/24/22 18:00 Mode of Arrival: Wheelchair Source of Information: Patient and Relative Limitations: No Limitations Description of Symptoms (Recalled from ER Triage Doc. by RN): C/O DIZZINESS, WEAKNESS AND LIGHTHEADNESS WITH STANDING FOR 2 WEEKS. FAMILY STATES PT FELL 2 NIGHT AGO, SKIN TEAR NOTED ON RIGHT ELBOW, DENIES ANY OTHER INJURIES AT THIS TIME History of Present Illness HPI narrative: Patient is a 62-year-old female with past medical history of triple-vessel bypass, pacemaker placement, insulin-dependent diabetes who presents emergency department for evaluation of weakness and dizziness upon standing. Onset was subacute, over the last 2 weeks. No changes to medications, patient has had decreased p.o. intake and urine output. Dizziness is worse upon standing, patient has had 1 ground-level fall without loss of consciousness, did not strike her head. No other acute complaints at this time. Related Data Allergies Allergy/AdvReac Type Severity Reaction Status Date / Time No Known Allergies Allergy Verified 05/25/22 14:12 [facility] Disclaimer: The information contained in this section may have been updated after the patient was seen, as this information can be updated by other users. Medical History Afib Atrial fibrillation CAD (coronary artery disease) Cardiac pacemaker in situ Community acquired pneumonia Congestive heart failure COPD (chronic obstructive pulmonary disease) Diabetes mellitus Dyspnea Hyperlipidemia Non-STEMI (non-ST elevated myocardial infarction) Sinus tachycardia Tobacco abuse Surgical History H/O heart artery stent S/P triple vessel bypass S/P triple vessel bypass S/P triple vessel bypass Status post atrioventricular mike ablation Social History Smoking Status: Current every day smoker tobacco type: cigarettes packs per day: 1 alcohol intake: never current occupational status: retired Travel in the last 8 weeks: Inside the [place] household members: family caffeine: No ROS Obtained: Yes Systems reviewed as appropriate & no additional complaints except as documented Physical Exam General General appearance: alert and in no apparent distress Head Head exam: atraumatic
[2022-07-24 18:22] LABS: Basophils # 0.1 K/mm3 (0-0.2); Basophils % 0.3 % (0.1-2.0); Eosinophils # 0.2 K/mm3 (0.0-0.4); Hematocrit 44.3 % (37.0-47.0); Hemoglobin 13.2 g/dL (12.2-16.2); Lymphocytes # 2.3 K/mm3 (0.7-4.5); Lymphocytes % 12.5 % (10-50); Mean Corpuscular HGB Conc 29.9 g/dL (31.8-35.4); Mean Corpuscular Volume 83.5 fl (81-99); Monocytes # 1.1 K/mm3 (0.1-1.0); Monocytes % 6.1 % (1.7-9.3); Neutrophils # 14.6 K/mm3 (1.8-7.8); Neutrophils % 80.1 % (37.0-80.0); Platelet Count 577 K/mm3 (142-424); Red Cell Distribution Width 18.9 % (11.5-17.5); White Blood Count 18.2 K/mm3 (4.8-10.8)
[2022-07-24 18:22] LABS: POC Glucose,Bedside 235 (70-110)
[2022-07-24 18:24] LABS: MANUAL DIFFERENTIAL MANUAL DIFFERENTIAL (MANUAL DIFF)
[2022-07-24 18:27] LABS: VBG Base Excess -1.8 mmol/L (-2.4-2.3); VBG HCO3 24.2 mmol/L (23-30); VBG Oxygen Saturation 51.4 % (50-70); VBG PH 7.32 mmol/L (7.31-7.41); VBG PO2 29.3 mmol/L (28-40); VBG Total CO2 25.7 mmol/L (23-27)
[2022-07-24 18:30] LABS: Chloride 87 mmol/L (98-107); Sodium 130 mmol/L (136-145)
[2022-07-24 18:32] LABS: Acetone, Serum (Rapid) None Detected (None Detect); Creatinine Clearance Estimated 30 mL/min (50-200); Estimated Glomerular Filt Rate 27 ml/min (>60); GFR (African American) 32 ML/MIN (>60)
[2022-07-24 18:33] LABS: Alanine Aminotransferase 34 U/L (12-78); Albumin/Globulin Ratio 1.4 (1.1-1.8); Alkaline Phosphatase 93 U/L (38-126); Aspartate Amino Transferase 44 U/L (14-36); Bilirubin,Total 0.8 mg/dl (0.2-1.3); Carbon Dioxide 26 mmol/L (22.0-30.0); Globulin 3.6 g/dL (1.3-3.2); Glucose 210 mg/dl (74-100); Magnesium 2.8 mg/dl (1.6-2.3); Total Protein,Serum 8.6 g/dl (6.3-8.2)
[2022-07-24 18:47] LABS: Anion Gap 23.3 mEq/L (5-15)
--- NOTE | 2022-07-24 18:48 | PC.NURSE ---
1847 CRITICAL LABS RECEIVED FROM [facility] IN LAB. K+ 6.3, BUN 30 AND LACTIC 4.5. PT ANME AND R/V. DR WATTS NOTIFIED
[2022-07-24 18:49] LABS: Lactic Acid 4.5 mmol/L (0.7-2.1)
[2022-07-24 18:49] LABS: Blood Urea Nitrogen 80 mg/dl (7-17); Potassium 6.3 mmoL/L (3.5-5.1)
[2022-07-24 18:55] LABS: Eosinophils % 1 % (0-3); Hypochromasia 2+; Lymphocytes % 16 % (10-50); Monocytes % 2 % (2-9); Neutrophils % 80 % (42-76); Platelet Estimate Moderate Increase; Total Cells Counted 100
[2022-07-24 19:06] LABS: Coronavirus 19, PCR Not Detected (NotDetected); Influenza A, PCR Not Detected (NotDetected); Influenza B, PCR Not Detected (NotDetected)
--- NOTE | 2022-07-24 19:18 | PC.NURSE ---
Dr. White at [facility]
[2022-07-24 19:34] LABS: Microscopic, Urine URINE MICROSCOPIC (MICROSCOPIC)
[2022-07-24 19:39] LABS: Appearance,Urine CLEAR (Clear); Bilirubin,Urine Negative (Negative); Blood, Urine Negative (Negative); Color,Urine YELLOW (Yellow); Glucose,Urine (UA) 3+ (Negative); Ketones,Urine Negative (Negative); Leukocyte Esterase,Urine Negative (Negative); Nitrate,Urine Negative (Negative); Protein,Urine TRACE (Negative); Urobilinogen,Urine 0.2 EU/dl (0.2)
[2022-07-24 19:47] LABS: Chloride 89 mmol/L (98-107)
[2022-07-24 19:48] LABS: Sodium 125 mmol/L (136-145)
[2022-07-24 19:50] LABS: Blood Urea Nitrogen 76 mg/dl (7-17); Creatinine Clearance Estimated 38 mL/min (50-200); Estimated Glomerular Filt Rate 35 ml/min (>60); GFR (African American) 42 ML/MIN (>60)
[2022-07-24 19:51] LABS: Calcium 8.6 mg/dl (8.4-10.2); Carbon Dioxide 23 mmol/L (22.0-30.0); Glucose 382 mg/dl (74-100)
--- NOTE | 2022-07-24 20:13 | PC.NURSE ---
Report to SOPHIE Bateman
--- NOTE | 2022-07-24 20:20 | EXP.HP ---
History of Present Illness *Admission Date: 07/24/22 *Reason for visit:: Dizziness *History of present illness: This is a 62-year-old female with past medical history of atrial fibrillation with pacemaker in situ, CAD, COPD, CHF, HLD, DM who presents to the emergency department today with complaints of 2 weeks of dizziness upon standing. She reports approximate 2 weeks of poor p.o. intake with nausea vomiting. She also reports being compliant with her home medications to include potassium, Lasix and other cardiac medications despite her vomiting. She denies any chest pain, abdominal pain but states that she has a generalized malaise and fatigue. She denies any fever cough or congestion. She does endorse prior ground-level fall without loss of consciousness. Emergency department work-up significant for electrolyte derangements to include hyperkalemia with a potassium of 6.5, LESLEE with a creatinine of 1.9, lactic of 4.5. Mild hypotension noted upon arrival with systolic in the 80s but patient has a history of chronic hypotension as reported by herself and family. Urine negative for infection or ketones. COVID and flu negative. She did respond well to IV fluids in emergency department. She was also treated for her hyperkalemia with insulin and calcium. EKG without notable changes. Given her LESLEE and electrolyte derangements are likely prerenal in nature, will admit here for further evaluation and management. She is admitted to hospital service. [facility] Disclaimer: The information contained in this section may have been updated after the patient was seen, as this information can be updated by other users. Medical History (Updated 07/25/22 @ 16:17 by Demetri William MD) Afib Atrial fibrillation CAD (coronary artery disease) Cardiac pacemaker in situ Community acquired pneumonia Congestive heart failure COPD (chronic obstructive pulmonary disease) Diabetes mellitus Diabetes mellitus, type 2 Dyspnea Hyperlipidemia Kidney stone Non-STEMI (non-ST elevated myocardial infarction) Pneumonia Sinus tachycardia Tobacco abuse Surgical History (Updated 07/24/22 @ 20:38 by Kimber Larios RN) H/O heart artery stent S/P insertion of iliac artery stent S/P triple vessel bypass S/P triple vessel bypass S/P triple vessel bypass Status post atrioventricular mike ablation Family History (Updated 07/24/22 @ 20:38 by Kimber Larios RN) Kidney failure Family history of hypertension Family history of diabetes mellitus type II Family history of myocardial infarction Family history of hyperlipidemia Social History (Updated 07/24/22 @ 20:38 by Kimber Larios RN) Smoking Status: Current every day smoker tobacco type: cigarettes packs per day: 1 alcohol intake: never current occupational status: retired Travel in the last 8 weeks: Inside the [place] household members: family caffeine: No Review of Systems Constitutional Constitutional: Reports malaise and Reports weakness Eyes Eyes: Reports system reviewed and no additional complaints, except as documented ENT Ears, Nose, Mouth, and Throat: Reports system reviewed and no additional complaints, except as documented and Reports vertigo *Cardiovascular Cardiovascular: Reports system reviewed and no additional complaints, except as documented *Respiratory Respiratory: Reports system reviewed and no additional complaints, except as documented *Gastrointestinal Gastrointestinal: Reports nausea and Reports vomiting *Genitourinary Genitourinary: Reports system reviewed and no additional complaints, except as documented *Musculoskeletal Musculoskeletal: Reports system reviewed and no additional complaints, except as documented Integumentary/Breasts Skin/Breast: Reports system reviewed and no additional complaints, except as documented *Neurologic Neurologic: Reports vertigo and Reports weakness Meds Home Medications and Allergies Home Medications Medication Instructions
--- NOTE | 2022-07-24 22:06 | PC.NURSE ---
notified medhat lunsford of pts hypotension, instructed to give 500mL bolus, bolus running at this time
--- NOTE | 2022-07-24 22:09 | PC.NURSE ---
Patient arrived to the floor via wheelchair @ 2019
[2022-07-24 22:24] LABS: Reflex Lactic Add Lactic Reflex
[2022-07-24 22:53] LABS: Chloride 92 mmol/L (98-107); Potassium 4.8 mmoL/L (3.5-5.1); Sodium 127 mmol/L (136-145)
[2022-07-24 22:56] LABS: Blood Urea Nitrogen 69 mg/dl (7-17); Creatinine Clearance Estimated 35 mL/min (50-200); Estimated Glomerular Filt Rate 32 ml/min (>60); GFR (African American) 39 ML/MIN (>60)
[2022-07-24 22:57] LABS: Anion Gap 15.8 mEq/L (5-15); Calcium 8.7 mg/dl (8.4-10.2); Carbon Dioxide 24 mmol/L (22.0-30.0); Glucose 233 mg/dl (74-100); Lactic Acid 3.4 mmol/L (0.7-2.1)
--- NOTE | 2022-07-24 23:09 | PC.NURSE ---
after bolus complete bp 82/32 @ 2230 2300-bp 73/50, notified medhat lunsford of hypotension, no new orders at this time
--- NOTE | 2022-07-24 23:20 | PC.NURSE ---
pt to ct scan with this RN via wheelchair
--- NOTE | 2022-07-24 23:25 | CT_ITS ---
PROCEDURE INFORMATION: Exam: CT Abdomen And Pelvis Without Contrast Exam date and time: 07/24/2022 11:43 PM Age: 62 years old Clinical indication: Vomiting TECHNIQUE: Imaging protocol: Computed tomography of the abdomen and pelvis without contrast. Radiation optimization: All CT scans at this facility use at least one of these dose optimization techniques: automated exposure control; mA and/or kV adjustment per patient size (includes targeted exams where dose is matched to clinical indication); or iterative reconstruction. REPORTING DATA: Count of CT and Cardiac NM exams in prior 12 months: This patient has received [address] and 0 known cardiac nuclear medicine studies in the 12 months prior to the current study. COMPARISON: CT ANGIO CHEST PE PROTOCOL 05/08/2022 1:04 AM FINDINGS: Liver: Mild hepatomegaly, measuring 18.5 cm in craniocaudal axis. No suspicious liver lesions. Gallbladder and bile ducts: Unremarkable. Pancreas: Unremarkable. Spleen: Scattered punctate calcifications in the spleen compatible with sequelae of prior granulomatous disease. Adrenal glands: Unremarkable. Kidneys and ureters: Non-specific bilateral symmetric perinephric fat stranding. No renal or ureteral stones. No hydronephrosis. Stomach and bowel: Colonic diverticulosis without evidence of acute diverticulitis. Post-operative changes of prior subtotal colectomy with anastomotic sutures in the transverse colon. No evidence of bowel obstruction or other acute gastrointestinal pathology. Appendix: Appendix is visualized and is normal. Intraperitoneal space: No free fluid. No pneumoperitoneum. Nodular lipomatous lesion with peripheral calcification near the hepatic flexure of the colon compatible with chronic fat necrosis. Vasculature: Extensive amount of calcific arterial atherosclerosis throughout the abdomen and pelvis. Lymph nodes: Unremarkable. Urinary bladder: Bladder is decompressed, limiting evaluation. Reproductive: Unremarkable. Bones/joints: No acute osseous abnormality. Soft tissues: Unremarkable. IMPRESSION: 1. No acute findings in the abdomen or pelvis. 2. Mild hepatomegaly. 3. Colonic diverticulosis without evidence of acute diverticulitis. 4. Additional non-acute ancillary findings are detailed above.
--- NOTE | 2022-07-24 23:35 | PC.NURSE ---
pt back from ct scan with this RN via wheelchair
[2022-07-25] VITALS (17 sets, daily range): BP systolic 71–133; BP diastolic 49–82; PULSE 79–90; RESP 14–18; TEMP 36.3–36.8; O2SAT 90–95; BMI 25.3
[2022-07-25 00:27] LABS: C-Reactive Protein 0.6 mg/L (0-4)
[2022-07-25 00:42] LABS: Erythrocyte Sedimentation Rate 14 mm/hr (0-30)
--- NOTE | 2022-07-25 01:00 | PC.NURSE ---
0040-bp 81/48 (59), started levo drip at 8mcg/min 0100-bp 76/55 (62), increased levophed drip to 10mcg/min 0105-102/70 (80)
--- NOTE | 2022-07-25 02:42 | PC.NURSE ---
0140-bp 84/51 (62) 0145-bp 81/51 61), increased levophed drip to 12mcg/min
[2022-07-25 03:24] LABS: Chloride 97 mmol/L (98-107); Potassium 5.2 mmoL/L (3.5-5.1)
[2022-07-25 03:27] LABS: Blood Urea Nitrogen 67 mg/dl (7-17); Calcium 8.3 mg/dl (8.4-10.2); Carbon Dioxide 25 mmol/L (22.0-30.0); Creatinine Clearance Estimated 47 mL/min (50-200); Estimated Glomerular Filt Rate 45 ml/min (>60); GFR (African American) 55 ML/MIN (>60); Glucose 180 mg/dl (74-100)
[2022-07-25 03:34] LABS: Anion Gap 14.2 mEq/L (5-15); Sodium 131 mmol/L (136-145)
--- NOTE | 2022-07-25 04:13 | PC.NURSE ---
0400-bp 119/77 (91), decreased levophed drip to 10mcg/min 0410-bp 118/77 (90), decreased levophed drip to 8mcg/min
--- NOTE | 2022-07-25 04:17 | PC.NURSE ---
decreased ivf to 75mL per order on emar
--- NOTE | 2022-07-25 04:22 | PC.NURSE ---
0415-bp 114/74 (87), decreased levophed drip to 6mcg/min 0420-bp 79/50 (59), increased levophed drip to 8mcg/min
[2022-07-25 06:44] LABS: POC Glucose,Bedside 248 (70-110)
[2022-07-25 06:44] LABS: POC Glucose,Bedside 205 (70-110)
[2022-07-25 06:44] LABS: POC Glucose,Bedside 133 (70-110)
[2022-07-25 06:44] LABS: POC Glucose,Bedside 275 (70-110)
--- NOTE | 2022-07-25 06:51 | PC.NURSE ---
0555-133/84, decreased levophed drip to 6mcg/min 0600-133/82, decreased levophed drip to 4mcg/min 06-133/, decreased levophed drip to 2mcg/min 0610-140/82, held levophed drip at this time
[2022-07-25 07:00] LABS: VBG Base Excess -3.7 mmol/L (-2.4-2.3); VBG HCO3 22.3 mmol/L (23-30); VBG Oxygen Saturation 97.6 % (50-70); VBG PCO2 43.9 mmol/L (35-51); VBG PH 7.32 mmol/L (7.31-7.41); VBG PO2 107.8 mmol/L (28-40); VBG Total CO2 23.7 mmol/L (23-27)
--- NOTE | 2022-07-25 07:08 | EXP.SEPSIS.E ---
Sepsis Event Note Focused Exam Vital Signs Temp Pulse Pulse Resp BP BP Pulse Ox 07/25/22 06:00 80 16 133/82 94 L 07/25/22 04:00 90 07/25/22 04:00 98.0 F 80 18 119/77 93 L 07/25/22 02:00 94 L 07/25/22 02:00 86 17 89/56 L 91 L 07/25/22 00:00 98.2 F 82 14 71/49 L 94 L 07/24/22 23:00 80 19 73/50 L 93 L 07/24/22 22:30 80 17 82/32 L 92 L 07/24/22 21:45 94 L 07/24/22 22:00 80 19 72/47 L 94 L 07/24/22 21:13 80 07/24/22 21:13 79 07/24/22 21:00 98.4 F 82 37 H 107/70 L 94 L 07/24/22 20:14 98.2 F 80 17 119/74 07/24/22 19:30 81 15 104/71 L 97 Problem List (1) LESLEE (acute kidney injury): Status: Acute (2) Hypovolemia dehydration: Status: Acute (3) Acute hyperkalemia: Status: Acute (4) Lactic acidosis: Status: Acute (5) Tobacco abuse: Status: Acute (6) Atrial fibrillation: Status: Acute (7) CAD (coronary artery disease): Status: Acute (8) Cardiac pacemaker in situ: Status: Acute (9) Diabetes mellitus: Status: Acute (10) Hyperlipidemia: Status: Acute (11) Congestive heart failure: Status: Acute (12) Chronic anticoagulation: Status: Acute
--- NOTE | 2022-07-25 07:17 | EXP.SEPSISRE ---
[facility] Tissue Perfusion Eval Sepsis Re-Evaluation Performed: Yes Date Performed: 07/24/22 Time Performed: 23:55
--- NOTE | 2022-07-25 07:30 | PC.NURSE ---
PT BP 86/57 LEVO GTT RESTARTED AT 2MCG
--- NOTE | 2022-07-25 08:00 | PC.NURSE ---
Addendum entered by Jessie Soto RN 07/25/22 08:29: levo drip Original Note: Under supervision of Morgan BARRIOS, BP 79/55, drip increased to 3mcg.
[2022-07-25 08:18] LABS: Chloride 93 mmol/L (98-107)
[2022-07-25 08:19] LABS: Potassium 4.4 mmoL/L (3.5-5.1); Sodium 132 mmol/L (136-145)
[2022-07-25 08:21] LABS: Alanine Aminotransferase 20 U/L (12-78); Alkaline Phosphatase 61 U/L (38-126); Anion Gap 17.4 mEq/L (5-15); Aspartate Amino Transferase 33 U/L (14-36); Bilirubin,Total 0.5 mg/dl (0.2-1.3); Blood Urea Nitrogen 59 mg/dl (7-17); Carbon Dioxide 26 mmol/L (22.0-30.0); Creatinine Clearance Estimated 53 mL/min (50-200); Estimated Glomerular Filt Rate 50 ml/min (>60); GFR (African American) 61 ML/MIN (>60)
[2022-07-25 08:22] LABS: Albumin Level 3.9 g/dl (3.5-5.0); Albumin/Globulin Ratio 1.4 (1.1-1.8); Calcium 8.2 mg/dl (8.4-10.2); Chol/HDL Ratio 3.7 (1-3.5); Cholesterol 96 mg/dl (140-200); Globulin 2.7 g/dL (1.3-3.2); Glucose 90 mg/dl (74-100); HDL Cholesterol 26 mg/dl (40-60); Magnesium 2.3 mg/dl (1.6-2.3); Total Protein,Serum 6.6 g/dl (6.3-8.2); Triglycerides 141 mg/dl (30-150); VLDL Cholesterol 28 mg/dL (0-40)
[2022-07-25 08:23] LABS: Lactic Acid 1.4 mmol/L (0.7-2.1)
--- NOTE | 2022-07-25 08:27 | PC.NURSE ---
Addendum entered by Jessie Soto RN 07/25/22 08:30: levo drip Original Note: Under the melt supervisor of Morgan BARRIOS, BP 77/49, increased drip to 5mcg.
--- NOTE | 2022-07-25 08:42 | EXP.ACUTE.PN ---
Subjective *Date: 07/25/22 *Time: 16:22 Interval history: Did well overnight. Feeling better this morning but still fatigued. No nausea or vomiting overnight. Off norepinephrine on repeat rounds. Stable on room air. Denies any chest pain. Medical Exam Vital signs and Labs for Last 24 Hours: Vital Signs Temp Pulse Pulse Resp BP BP Pulse Ox 07/25/22 08:00 79 16 79/55 L 92 L 07/25/22 07:59 97.9 F 07/25/22 07:30 92 L 07/25/22 06:00 80 16 133/82 94 L 07/25/22 04:00 90 07/25/22 04:00 98.0 F 80 18 119/77 93 L 07/25/22 02:00 94 L 07/25/22 02:00 86 17 89/56 L 91 L 07/25/22 00:00 98.2 F 82 14 71/49 L 94 L 07/24/22 23:00 80 19 73/50 L 93 L 07/24/22 22:30 80 17 82/32 L 92 L 07/24/22 21:45 94 L 07/24/22 22:00 80 19 72/47 L 94 L 07/24/22 21:13 80 07/24/22 21:13 79 07/24/22 21:00 98.4 F 82 37 H 107/70 L 94 L 07/24/22 20:14 98.2 F 80 17 119/74 07/24/22 19:30 81 15 104/71 L 97 07/24/22 19:00 82 16 132/77 95 07/24/22 17:48 98.9 F 80 18 92/59 L 100 Intake and Output 07/24/22 07/25/22 07/25/22 23:59 07:59 15:59 Intake Total 1500 / 1740 1240 / 1240 Output Total 800 / 1000 200 / 200 Balance 700 / 740 1040 / 1040 Intake: Intake, Oral Amount 240 / 240 Intake, Total IV Amount 1500 / 1500 1000 / 1000 0.9 % Sodium Chloride 1,000 ml 1000 / 1000 @ 999 mls/hr IV .Q1H1M [facility] Rx#: [id number] Output: Output, Urine Amount 800 / 1000 200 / 200 Other: Number of Unmeasured Voids 1 1 Weight 63.049 kg 64.864 kg Patient Weight 07/25/22 23:59 Weight 64.864 kg Laboratory Results - last 24 hr 07/24/22 18:10: WBC 18.2 H, RBC 5.30, Hgb 13.2, Hct 44.3, MCV 83.5, MCH 25.0 L, MCHC 29.9 L, RDW 18.9 H, Plt Count 577 H, MPV 8.0, Neut % (Auto) 80.1 H, Lymph % (Auto) 12.5, [place] % (Auto) 6.1, Eos % (Auto) 1.0, Baso % (Auto) 0.3, Neut # (Auto) 14.6 H, Lymph # (Auto) 2.3, [place] # (Auto) 1.1 H, Eos # (Auto) 0.2, Baso # (Auto) 0.1, Total Counted 100, Neutrophils % (Manual) 80 H, Band Neutrophils % 1.0, Lymphocytes % (Manual) 16, Monocytes % (Manual) 2, Eosinophils % (Manual) 1, Platelet Estimate Moderate increase, RBC Morphology Not Reportable, Hypochromasia 2+ 07/24/22 18:10: Sodium 130 L, Potassium 6.3 H*, Chloride 87 L, Carbon Dioxide 26, Anion Gap 23.3 H, BUN 80 H, Creatinine 1.90 H, Estimated Creat Clear 30, Estimated GFR 27 L, Est GFR ( Amer) 32 L, Glucose 210 H, Calcium 10.0, Magnesium 2.8 H, Total Bilirubin 0.8, AST 44 H, ALT 34, Alkaline Phosphatase 93, Total Protein 8.6 H D, Albumin 5.0, Globulin 3.6 H, Albumin/Globulin Ratio 1.4 07/24/22 18:10: Acetone Level None detected 07/24/22 18:15: Lactate 4.5 H 07/24/22 18:15: POC Glucose 235 H 07/24/22 18:17: VBG pH 7.32, VBG pCO2 48.0, VBG pO2 29.3, VBG HCO3 24.2, VBG Total CO2 25.7, VBG O2 Saturation 51.4, VBG Base Excess -1.8 07/24/22 18:51: SARS-CoV-2 (PCR) Not detected, Influenza A Untype (PCR) Not detected, Influenza Type B (PCR) Not detected 07/24/22 19:29: Urine Color Yellow, Urine Appearance Clear, Urine pH 6.0, Ur Specific [place] 1.010, Urine Protein Trace, Urine Glucose (UA) 3+, Urine Ketones Negative, Urine Blood Negative, Urine Nitrate Negative, Urine Bilirubin Negative, Urine Urobilinogen 0.2, Ur Leukocyte Esterase Negative, Urine RBC None, Urine WBC None, Ur Squamous Epith Cells None, Urine Bacteria None 07/24/22 19:36: Sodium 125 L, Potassium 6.0 H, Chloride 89 L, Carbon Dioxide 23, Anion Gap 19.0 H, BUN 76 H, Creatinine 1.50 H D, Estimated Creat Clear 38, Estimated GFR 35 L, Est GFR ( Amer) 42 L D, Glucose 382 H D, Calcium 8.6 07/24/22 20:53: POC Glucose 205 H 07/24/22 22:30: Sodium 127 L, Potassium 4.8, Chloride 92 L, Carbon Dioxide 24, Anion Gap 15.8 H, BUN 69 H, Creatinine 1.60 H, Estimated Creat Clear 35, Estimated GFR 32 L, Est GFR ( Amer) 39 L, Glucose 233 H D, Calcium 8.7 07/24/22 22:30:
--- NOTE | 2022-07-25 08:45 | PC.NURSE ---
0842- BP 65/38 LEVO GTT INCREASED TO 10 MCG/MIN.
--- NOTE | 2022-07-25 09:31 | PC.NURSE ---
Under supervision of Morgan BARRIOS, levo drip decreased to 8mcg. bp 131/77.
--- NOTE | 2022-07-25 09:39 | EXP.PHA.CONS ---
Pharmacy Consult Date: 07/25/22 Time: 09:39 Referring provider: DR CULLEN Reason for Consult:: VANCOMYCIN DOSING CONSULT Allergies Allergy/AdvReac Type Severity Reaction Status Date / Time No Known Allergies Allergy Verified 05/25/22 14:12 Home Medications Medication Instructions Recorded Confirmed Type albuterol sulfate 90 mcg/actuation 2 inh inhalation Q6HP PRN 07/24/22 07/24/22 History aerosol inhaler Breathing Problems apixaban 5 mg tablet (Eliquis) 5 mg PO BID Blood thinner 07/24/22 07/25/22 History aripiprazole 5 mg tablet 5 mg PO DAILY Mood 07/24/22 07/24/22 History aspirin 81 mg tablet,delayed 81 mg PO DAILY Blood thinner 07/24/22 07/24/22 History release atorvastatin 80 mg tablet 80 mg PO DAILY Cholesterol 07/24/22 07/24/22 History bumetanide 2 mg tablet 2 mg PO TID Edema 07/24/22 07/24/22 History clopidogrel 75 mg tablet 75 mg PO DAILY Blood thinner 07/24/22 07/24/22 History empagliflozin 10 mg tablet 10 mg PO DAILY Diabetes 07/24/22 07/24/22 History (Jardiance) fluticasone fur. 100 mcg-umeclid 1 inh inhalation DAILY Breathing 07/24/22 07/24/22 History 62.5 mcg-vilant 25 mcg problems inhalat.powder (Trelegy Ellipta) insulin glargine 100 unit/mL (3 80 unit SQ HS Diabetes 07/24/22 07/24/22 History mL) subcutaneous pen (Lantus Solostar U-100 Insulin) irbesartan 75 mg tablet 37.5 mg PO BID High blood pressure 07/24/22 07/24/22 History losartan 25 mg tablet 25 mg PO DAILY High blood pressure 07/24/22 07/24/22 History magnesium oxide 400 mg (241.3 mg 400 mg PO DAILY Supplement 07/24/22 07/24/22 History magnesium) tablet metformin 1,000 mg tablet 1,000 mg PO BID Diabetes 07/24/22 07/24/22 History paroxetine HCl 40 mg tablet 40 mg PO DAILY Mood 07/24/22 07/24/22 History potassium chloride 20 mEq 40 meq PO DAILY Supplement 07/24/22 07/24/22 History tablet,extended release(part/cryst) spironolactone 50 mg tablet 50 mg PO BID Edema 07/24/22 07/24/22 History trazodone 150 mg tablet 150 mg PO HS Mood 07/24/22 07/24/22 History New Prescriptions to Start Prescriptions: Height: 1.6 m Weight: 64.864 kg Laboratory Results:: Laboratory Results - last 24 hr 07/24/22 18:10: WBC 18.2 H, RBC 5.30, Hgb 13.2, Hct 44.3, MCV 83.5, MCH 25.0 L, MCHC 29.9 L, RDW 18.9 H, Plt Count 577 H, MPV 8.0, Neut % (Auto) 80.1 H, Lymph % (Auto) 12.5, [place] % (Auto) 6.1, Eos % (Auto) 1.0, Baso % (Auto) 0.3, Neut # (Auto) 14.6 H, Lymph # (Auto) 2.3, [place] # (Auto) 1.1 H, Eos # (Auto) 0.2, Baso # (Auto) 0.1, Total Counted 100, Neutrophils % (Manual) 80 H, Band Neutrophils % 1.0, Lymphocytes % (Manual) 16, Monocytes % (Manual) 2, Eosinophils % (Manual) 1, Platelet Estimate Moderate increase, RBC Morphology Not Reportable, Hypochromasia 2+ 07/24/22 18:10: Sodium 130 L, Potassium 6.3 H*, Chloride 87 L, Carbon Dioxide 26, Anion Gap 23.3 H, BUN 80 H, Creatinine 1.90 H, Estimated Creat Clear 30, Estimated GFR 27 L, Est GFR ( Amer) 32 L, Glucose 210 H, Calcium 10.0, Magnesium 2.8 H, Total Bilirubin 0.8, AST 44 H, ALT 34, Alkaline Phosphatase 93, Total Protein 8.6 H D, Albumin 5.0, Globulin 3.6 H, Albumin/Globulin Ratio 1.4 07/24/22 18:10: Acetone Level None detected 07/24/22 18:15: Lactate 4.5 H 07/24/22 18:15: POC Glucose 235 H 07/24/22 18:17: VBG pH 7.32, VBG pCO2 48.0, VBG pO2 29.3, VBG HCO3 24.2, VBG Total CO2 25.7, VBG O2 Saturation 51.4, VBG Base Excess -1.8 07/24/22 18:51: SARS-CoV-2 (PCR) Not detected, Influenza A Untype (PCR) Not detected, Influenza Type B (PCR) Not detected 07/24/22 19:29: Urine Color Yellow, Urine Appearance Clear, Urine pH 6.0, Ur Specific [place] 1.010, Urine Protein Trace, Urine Glucose (UA) 3+, Urine Ketones Negative, Urine Blood Negative, Urine Nitrate Negative, Urine Bilirubin Negative, Urine Urobilinogen 0.2, Ur Leukocyte Esterase Negative, Urine RBC None, Urine WBC None, Ur Squamous Epith Cells None, Urine Bacteria None 07/24/22 19:36: Sodium 125 L, Potassium 6.0 H, Chloride 89 L, Carbon Dioxide 23, Anion G
--- NOTE | 2022-07-25 11:52 | PC.NURSE ---
assisted pt to restroom with standby assist. steady gait noted. pt tolerated well. pt voided. assisted back to chair. hooked back up to security monitor. vitals cycling. call light within reach.
--- NOTE | 2022-07-25 12:53 | HMH.PHAINT1 ---
Pharmacy Intervention Comments: MEDICATION RECONCILIATION COMPLETE USING LIST FROM RECENT PODIATRY OFFICE VISIT AND EXTERNAL PHARMACY FILL HISTORY.
--- NOTE | 2022-07-25 12:59 | [facility].PTEV ---
Physical Therapy Evaluation Rehab PT IP Evaluation Start: 07/25/22 09:35 Freq: ONCE Status: Active Protocol: Document 07/25/22 12:55 PHORNE (Rec: 07/25/22 12:59 PHORNE [email or web address]) Subjective/History History History 62 yowf adm to [facility] with LESLEE and hyperkalemia. Hx of DM, CHF, COPD, CAD. She reports she lives with her mother, no steps to enter the home, and she is generally independent with all mobility at baseline without AD. Subjective Subjective I've been getting dizzy for a couple weeks and I don't walk very far anyway. No current c/o pain or dizziness. Rehab PT IP Eval Objective Appearance Patient Behavior Appropriate Patient Orientation Person,Place,Time Difficulty following instructions none Speech Pattern Clear Ambulation Patient Able to Ambulate Yes Ambulation Observation IP General Gait Pattern Observation Shuffling Step Ambulation Distance (feet) 20 Ambulation Assistive Device None Ambulation Ability Supervision/Stand by Balance Ability to Arise Able, uses arms to help Sitting Balance Steady, safe Standing Balance Steady, wide stance Dynamic Sitting Balance Ability Good Dynamic Standing Balance Ability Good Transfers Bed Transfer Ability Supervision/Stand by Chair Transfer Ability Supervision/Stand by Sit to Stand Bed Transfer Ability Supervision/Stand by Sit to Stand Chair Transfer Ability Supervision/Stand by ROM All Extremities PT ROM Status WFL MMT All Extremities PT MMT WFL Rehab PT IP prob,goals,plan Problems Date of Evaluation: 07/25/22 PT IP Problems Bed Mobility,Transfers,Gait Rehab Potential Rehab Potential Good Plan PT Intervention Plan Bed Mobility,Transfers,Gait, Therapeutic Exercise PT Plan Frequency Daily Duration LOS Discharge Goals Bed Transfer Ability Independent Sit to Stand Chair Transfer Ability Independent Ambulation Assistive Device None Ambulation Distance (feet) 40 Discharge Plan PT Discharge Plan Pt currently appears close to baseline status for all mobility. She is appropriate to return home once medically stable for d/c. Recommend Home
--- NOTE | 2022-07-25 13:36 | PC.NURSE ---
1324- BP 118/74 LEVO GTT DECREASED TO 5MCG/MIN
--- NOTE | 2022-07-25 14:29 | PC.NURSE ---
BP 131/56 LEVO GTT PLACED ON STANDBY
--- NOTE | 2022-07-25 17:19 | PC.NURSE ---
courtesy tech round: pt walked to and from bathroom with x1 assist. pt is back in bed and requests the dinner tray be taken out of the room. call light is within reach
[2022-07-25 18:28] LABS: Basophils # 0.1 K/mm3 (0-0.2); Basophils % 0.6 % (0.1-2.0); Eosinophils # 0.1 K/mm3 (0.0-0.4); Eosinophils % 1.1 % (0.1-12.0); Lymphocytes # 1.7 K/mm3 (0.7-4.5); Lymphocytes % 15.2 % (10-50); Mean Corpuscular HGB Conc 30.2 g/dL (31.8-35.4); Mean Corpuscular Volume 82.9 fl (81-99); Mean Platelet Volume 8.1 fl (7.4-10.4); Monocytes # 0.8 K/mm3 (0.1-1.0); Monocytes % 7.3 % (1.7-9.3); Neutrophils # 8.3 K/mm3 (1.8-7.8); Neutrophils % 75.7 % (37.0-80.0); Platelet Count 406 K/mm3 (142-424); Red Blood Count 4.22 M/mm3 (4.20-5.40); Red Cell Distribution Width 18.9 % (11.5-17.5); White Blood Count 10.9 K/mm3 (4.8-10.8)
[2022-07-25 18:35] LABS: Chloride 96 mmol/L (98-107); Potassium 4.3 mmoL/L (3.5-5.1); Sodium 134 mmol/L (136-145)
[2022-07-25 18:36] LABS: Hemoglobin 10.5 g/dL (12.2-16.2)
[2022-07-25 18:38] LABS: Anion Gap 16.3 mEq/L (5-15); Blood Urea Nitrogen 43 mg/dl (7-17); Calcium 8.3 mg/dl (8.4-10.2); Carbon Dioxide 26 mmol/L (22.0-30.0); Creatinine Clearance Estimated 53 mL/min (50-200); Estimated Glomerular Filt Rate 50 ml/min (>60); GFR (African American) 61 ML/MIN (>60); Glucose 156 mg/dl (74-100)
[2022-07-25 20:11] LABS: POC Glucose,Bedside 142 (70-110)
[2022-07-25 23:26] LABS: POC Glucose,Bedside 104 (70-110)
[2022-07-26] VITALS (7 sets, daily range): BP systolic 118–131; BP diastolic 64–67; PULSE 80–84; RESP 18; TEMP 36.7–37.1; O2SAT 91–94; BMI 25.7
[2022-07-26 01:25] LABS: POC Glucose,Bedside 106 (70-110)
[2022-07-26 01:25] LABS: POC Glucose,Bedside 165 (70-110)
--- NOTE | 2022-07-26 04:38 | PC.NURSE ---
NO ACUTE CHANGES THIS SHIFT. NO C/O N/V/D THIS SHIFT. AMBULATING IN ROOM AND TO BR WITH STANDBY ASSIST. VSS. PT IS MAINTAINING HER BP WITHOUT THE LEVO GTT. LUNG SOUNDS REMAIN DIMINISHED.
[2022-07-26 05:37] LABS: POC Glucose,Bedside 96 (70-110)
--- NOTE | 2022-07-26 07:37 | EXP.DC.SUM ---
General Admission date:: 07/24/22 Discharge date: 07/26/22 HPI HPI HPI: This is a 62-year-old female with past medical history of atrial fibrillation with pacemaker in situ, CAD, COPD, CHF, HLD, DM who presents to the emergency department today with complaints of 2 weeks of dizziness upon standing. She reports approximate 2 weeks of poor p.o. intake with nausea vomiting. She also reports being compliant with her home medications to include potassium, Lasix and other cardiac medications despite her vomiting. She denies any chest pain, abdominal pain but states that she has a generalized malaise and fatigue. She denies any fever cough or congestion. She does endorse prior ground-level fall without loss of consciousness. Emergency department work-up significant for electrolyte derangements to include hyperkalemia with a potassium of 6.5, LESLEE with a creatinine of 1.9, lactic of 4.5. Mild hypotension noted upon arrival with systolic in the 80s but patient has a history of chronic hypotension as reported by herself and family. Urine negative for infection or ketones. COVID and flu negative. She did respond well to IV fluids in emergency department. She was also treated for her hyperkalemia with insulin and calcium. EKG without notable changes. Given her LESLEE and electrolyte derangements are likely prerenal in nature, will admit here for further evaluation and management. She is admitted to hospital service. Hospital Course Hospital Course Hospital Course: This is a 62-year-old female admitted to the hospital service for hyperkalemia, LESLEE likely in the setting of volume depletion given 2 weeks of vomiting.? LESLEE and hyperkalemia compounded by continued potassium replacement at home and continued use of Bumex and spironolactone despite volume depletion.? Initially needed norepinephrine for hypotension along with fluid resuscitation. Gradually improved and weaned off of Levophed within 24 hours of admission. Stable for 24 hours off vasopressors. Resuming home regimen of medications. Stable for discharge home. Problems addressed as follows: LESLEE Dehydration Likely prerenal in nature given continued vomiting and continued diuretic usage at home. Held diuretics during hospitalization. Creatinine was 1.9 on admission. Improved to 0.8 on day of discharge. This is the best her creatinines been in a year. In light of her pulmonary hypertension however, patient was diuresed to the point her creatinine was bumped to maintain euvolemic to slightly dry state. In the setting of nausea and vomiting/acute gastroenteritis, I am concerned this tipped the balance and caused dehydration, worsening kidney injury, and led to her admission. He is tolerating p.o. fluids. No further nausea or vomiting. Symptoms appear resolved. Acute hyperkalemia Likely secondary to LESLEE and continued Bumex, spironolactone, and potassium replacement at home. Will resume Bumex and spironolactone at reduced doses on discharge due to her pulmonary hypertension. We will hold on potassium however pending follow-up labs. Potassium on day of discharge 4.3. Lactic acidosis Elevated anion gap Leukocytosis Presentation did not meet full criteria for sepsis or SIRS. No infectious source noted. Did have leukocytosis that responded briskly to fluids and addressing her nausea and vomiting. Suspect secondary to D marginalization. Suspect lactic acidosis secondary to dehydration. No indication at this time for continued antibiotics. Will not discharge on antibiotic course. Nausea and vomiting resolved Hyponatremia Hypovolemic hyponatremia.? Improved with fluid resuscitation. Atrial fibrillation Heart failure with preserved ejection fraction Pulmonary retention Cardiac pacemaker in situ, rate controlled. Continuing on Eliquis for her A-fib. Of note, previous cardiac work-up showing severe pulmonary hypertension. Diuretics were held during hospitalization due to dehydration, hypotension,
[2022-07-26 07:38] LABS: Basophils # 0.1 K/mm3 (0-0.2); Basophils % 0.5 % (0.1-2.0); Eosinophils # 0.2 K/mm3 (0.0-0.4); Eosinophils % 1.9 % (0.1-12.0); Hematocrit 36.3 % (37.0-47.0); Hemoglobin 11.1 g/dL (12.2-16.2); Lymphocytes % 18.7 % (10-50); Mean Corpuscular HGB Conc 30.6 g/dL (31.8-35.4); Mean Corpuscular Hemoglobin 25.1 pg (27.0-31.2); Mean Corpuscular Volume 81.9 fl (81-99); Monocytes # 0.7 K/mm3 (0.1-1.0); Monocytes % 6.2 % (1.7-9.3); Neutrophils # 7.9 K/mm3 (1.8-7.8); Neutrophils % 72.8 % (37.0-80.0); Platelet Count 407 K/mm3 (142-424); Red Blood Count 4.43 M/mm3 (4.20-5.40); Red Cell Distribution Width 19.1 % (11.5-17.5); White Blood Count 10.9 K/mm3 (4.8-10.8)
[2022-07-26 07:41] LABS: Chloride 104 mmol/L (98-107)
[2022-07-26 07:42] LABS: Potassium 4.3 mmoL/L (3.5-5.1); Sodium 135 mmol/L (136-145)
[2022-07-26 07:44] LABS: Alanine Aminotransferase 19 U/L (12-78); Alkaline Phosphatase 70 U/L (38-126); Anion Gap 9.3 mEq/L (5-15); Aspartate Amino Transferase 27 U/L (14-36); Bilirubin,Total 0.5 mg/dl (0.2-1.3); Blood Urea Nitrogen 31 mg/dl (7-17); Calcium 8.5 mg/dl (8.4-10.2); Carbon Dioxide 26 mmol/L (22.0-30.0); Creatinine Clearance Estimated 59 mL/min (50-200); Estimated Glomerular Filt Rate 72 ml/min (>60); GFR (African American) 87 ML/MIN (>60); Glucose 85 mg/dl (74-100)
[2022-07-26 07:45] LABS: Albumin Level 3.8 g/dl (3.5-5.0); Albumin/Globulin Ratio 1.4 (1.1-1.8); Globulin 2.8 g/dL (1.3-3.2); Total Protein,Serum 6.6 g/dl (6.3-8.2)
--- NOTE | 2022-07-26 09:17 | HMH.PHAINT1 ---
Pharmacy Intervention Comments: DISCHARGE MEDICATION COUNSELING PROVIDED. DISCUSSED CHANGE ON THE FOLLOWING: -HOLD IRBESARTAN AND POTASSIUM UNTIL YOU FOLLOW UP WITH CARDIOLOGY. -REDUCE SPIRONOLACTONE FROM TWICE DAILY TO ONCE DAILY -REDUCE BUMETANIDE FROM THREE TIMES DAILY TO TWICE DAILY. PATIENT VERBALIZED UNDERSTANDING AND NO QUESTIONS AT THIS TIME.
--- NOTE | 2022-07-27 13:54 | CARE MANAGER ---
Attempted to contact patient related to hospital discharge. Patient states she is still weak, but feeling some weak. She has made her cardiology appt and has been attempting to get in touch with her PCP, but has not been able to yet and will continue to try. Patient denies questions or concerns. SOPHIE [place]
== END 2022-07-26 09:39 | disposition home or self-care (01) | DRG 683 ==
LOC: ER 19:52 → 2ND 07-25 01:43
PROVIDERS: Nurse Practitioner Acute Care; Admitting Provider Internal Medicine Adolescent Medicine; Emergency Provider Emergency Medicine; PCP Emergency Medicine; Visit Provider Internal Medicine Adolescent Medicine
DX: N17.9 Acute kidney failure, unspecified (principal); E87.20 Acidosis, unspecified; I48.20 Chronic atrial fibrillation, unspecified; I50.32 Chronic diastolic (congestive) heart failure; E86.1 Hypovolemia; E87.5 Hyperkalemia; F17.210 Nicotine dependence, cigarettes, uncomplicated; I25.708 Atherosclerosis of coronary artery bypass graft(s), unspecified, with other forms of angina pectoris; Z95.0 Presence of cardiac pacemaker; E78.2 Mixed hyperlipidemia; Z79.01 Long term (current) use of anticoagulants; Z79.899 Other long term (current) drug therapy; Z79.4 Long term (current) use of insulin; E86.0 Dehydration; J44.9 Chronic obstructive pulmonary disease, unspecified; Z95.1 Presence of aortocoronary bypass graft; E11.9 Type 2 diabetes mellitus without complications; Z95.5 Presence of coronary angioplasty implant and graft; E78.5 Hyperlipidemia, unspecified; T50.2X5A Adverse effect of carbonic-anhydrase inhibitors, benzothiadiazides and other diuretics, initial encounter; I95.89 Other hypotension
CPT/HCPCS: 36415; 71045; 74176; 80048; 80053; 80061; 81001; 82009; 82803; 82962; 83605; 83735; 84145; 85007; 85025; 85651; 86140; 87040; 93005; 94640; 97162; 99291; C9803; J0692; J2405; J3370; U0003; U0005

== ENCOUNTER → 2022-07-30 08:53 | Outpatient (CLI) | payer MEDICARE, SELFPAY ==
[2022-07-30 09:20] LABS: Basophils # 0.1 K/mm3 (0-0.2); Basophils % 0.6 % (0.1-2.0); Eosinophils # 0.1 K/mm3 (0.0-0.4); Eosinophils % 0.9 % (0.1-12.0); Hematocrit 36.2 % (37.0-47.0); Hemoglobin 10.6 g/dL (12.2-16.2); Lymphocytes # 1.4 K/mm3 (0.7-4.5); Lymphocytes % 15.6 % (10-50); Mean Corpuscular HGB Conc 29.3 g/dL (31.8-35.4); Mean Corpuscular Volume 85.3 fl (81-99); Mean Platelet Volume 7.6 fl (7.4-10.4); Monocytes # 0.6 K/mm3 (0.1-1.0); Monocytes % 6.4 % (1.7-9.3); Neutrophils # 6.7 K/mm3 (1.8-7.8); Neutrophils % 76.6 % (37.0-80.0); Platelet Count 391 K/mm3 (142-424); Red Blood Count 4.24 M/mm3 (4.20-5.40); Red Cell Distribution Width 18.6 % (11.5-17.5); White Blood Count 8.8 K/mm3 (4.8-10.8)
[2022-07-30 11:16] LABS: Chloride 91 mmol/L (98-107); Potassium 4.2 mmoL/L (3.5-5.1); Sodium 135 mmol/L (136-145)
[2022-07-30 11:18] LABS: Blood Urea Nitrogen 27 mg/dl (7-17); Estimated Glomerular Filt Rate 56 ml/min (>60); GFR (African American) 68 ML/MIN (>60)
[2022-07-30 11:19] LABS: Alanine Aminotransferase 26 U/L (12-78); Albumin Level 4.1 g/dl (3.5-5.0); Albumin/Globulin Ratio 1.6 (1.1-1.8); Alkaline Phosphatase 78 U/L (38-126); Anion Gap 21.2 mEq/L (5-15); Aspartate Amino Transferase 31 U/L (14-36); Bilirubin,Total 0.6 mg/dl (0.2-1.3); Calcium 9.5 mg/dl (8.4-10.2); Carbon Dioxide 27 mmol/L (22.0-30.0); Globulin 2.6 g/dL (1.3-3.2); Glucose 181 mg/dl (74-100); Total Protein,Serum 6.7 g/dl (6.3-8.2)
== END ==
PROVIDERS: PCP Emergency Medicine; Visit Provider Internal Medicine Adolescent Medicine
DX: N17.9 Acute kidney failure, unspecified (principal)
CPT/HCPCS: 36415; 80053; 85025

== ENCOUNTER 2022-07-31 11:15 | Observation (INO) | payer MEDICARE, SELFPAY ==
[2022-07-31] VITALS (9 sets, daily range): BP systolic 72–142; BP diastolic 53–61; PULSE 75–83; RESP 16–20; TEMP 36.4–36.8; O2SAT 95–99; BMI 24.3
--- NOTE | 2022-07-31 11:24 | PC.NURSE ---
Dr Yoon speaking with Dr Niño
--- NOTE | 2022-07-31 11:26 | PC.NURSE ---
Dr Niño requested Savana Block to come see pt. Cardiology called they gave her the message
--- NOTE | 2022-07-31 11:32 | HMH.EDGENADL ---
Discharge Plan Disposition Patient Disposition: Admitted As Inpatient Condition: Fair Clinical Impressions Clinical Impression: Ischemia of extremity Discharge ED Provider: Alfonso Yoon General Adult HPI General Chief complaint: Skin/Abscess/Foreign Body Stated complaint: possible blood clots in Rt leg Time Seen by Provider: 07/31/22 11:20 History of Present Illness HPI narrative: Patient presents complaining of right leg pain that started yesterday and worsened today. She denies trauma. She does give a history of peripheral arterial disease. She describes the pain presently as mild and without exacerbating alleviating factors. There is been no fever. Related Data Home Medications Medication Instructions Recorded Confirmed albuterol sulfate 90 mcg/actuation 2 inh inhalation Q6HP PRN 07/24/22 07/30/22 aerosol inhaler Breathing Problems apixaban 5 mg tablet (Eliquis) 5 mg PO BID Blood thinner 07/24/22 07/30/22 aripiprazole 5 mg tablet 5 mg PO DAILY Mood 07/24/22 07/30/22 aspirin 81 mg tablet,delayed 81 mg PO DAILY CAD 07/24/22 07/30/22 release atorvastatin 80 mg tablet 80 mg PO HS Cholesterol 07/24/22 07/30/22 clopidogrel 75 mg tablet 75 mg PO DAILY Blood thinner 07/24/22 07/30/22 empagliflozin 10 mg tablet 10 mg PO DAILY Diabetes 07/24/22 07/30/22 (Jardiance) fluticasone fur. 100 mcg-umeclid 1 inh inhalation DAILY COPD 07/24/22 07/30/22 62.5 mcg-vilant 25 mcg inhalat.powder (Trelegy Ellipta) insulin glargine 100 unit/mL (3 80 unit SQ HS Diabetes 07/24/22 07/30/22 mL) subcutaneous pen (Lantus Solostar U-100 Insulin) irbesartan 75 mg tablet 37.5 mg PO BID High blood pressure 07/24/22 07/30/22 magnesium oxide 400 mg (241.3 mg 400 mg PO DAILY Supplement 07/24/22 07/30/22 magnesium) tablet metformin 1,000 mg tablet 1,000 mg PO BIDWMEAL Diabetes 07/24/22 07/30/22 paroxetine HCl 40 mg tablet 40 mg PO DAILY Mood 07/24/22 07/30/22 potassium chloride 20 mEq 40 meq PO DAILY Supplement 07/24/22 07/30/22 tablet,extended release(part/cryst) trazodone 150 mg tablet 150 mg PO HS Mood 07/24/22 07/30/22 Previous Rx's Medication Instructions Recorded bumetanide 2 mg tablet 2 mg PO BID Edema 30 days #0 tabs 07/26/22 spironolactone 50 mg tablet 50 mg PO DAILY Edema 30 days #0 07/26/22 tabs Allergies Allergy/AdvReac Type Severity Reaction Status Date / Time No Known Allergies Allergy Verified 07/30/22 09:33 [facility] Disclaimer: The information contained in this section may have been updated after the patient was seen, as this information can be updated by other users. Medical History Afib Atrial fibrillation CAD (coronary artery disease) Cardiac pacemaker in situ Community acquired pneumonia Congestive heart failure COPD (chronic obstructive pulmonary disease) Diabetes mellitus Diabetes mellitus, type 2 Dyspnea Hyperlipidemia Kidney stone Non-STEMI (non-ST elevated myocardial infarction) Pneumonia Sinus tachycardia Tobacco abuse Surgical History H/O heart artery stent S/P insertion of iliac artery stent S/P triple vessel bypass S/P triple vessel bypass S/P triple vessel bypass Status post atrioventricular mike ablation Family History Other Family history of diabetes mellitus type II Family history of hyperlipidemia Family history of hypertension Family history of myocardial infarction Kidney failure Social History Smoking Status: Never smoker alcohol intake: never current occupational status: retired Travel in the last 8 weeks: Inside the [place] household members: family caffeine: No ROS Obtained: Yes All systems reviewed & no additional complaints except as documented Physical Exam General General appearance: alert and in no apparent distres
--- NOTE | 2022-07-31 11:35 | PC.NURSE ---
Raquel Arreola spoke with Savana Block
[2022-07-31 11:36] LABS: Coronavirus 19, PCR Not Detected (NotDetected); Influenza A, PCR Not Detected (NotDetected); Influenza B, PCR Not Detected (NotDetected)
--- NOTE | 2022-07-31 11:38 | PC.NURSE ---
Savana at bedside seeing patient
[2022-07-31 11:41] LABS: Basophils % 0.4 % (0.1-2.0); Eosinophils # 0.1 K/mm3 (0.0-0.4); Eosinophils % 1.4 % (0.1-12.0); Hemoglobin 10.3 g/dL (12.2-16.2); Lymphocytes # 1.1 K/mm3 (0.7-4.5); Lymphocytes % 12.3 % (10-50); Mean Corpuscular HGB Conc 29.3 g/dL (31.8-35.4); Mean Corpuscular Hemoglobin 24.8 pg (27.0-31.2); Mean Corpuscular Volume 84.9 fl (81-99); Mean Platelet Volume 7.3 fl (7.4-10.4); Monocytes # 0.6 K/mm3 (0.1-1.0); Monocytes % 6.6 % (1.7-9.3); Neutrophils # 7.1 K/mm3 (1.8-7.8); Neutrophils % 79.3 % (37.0-80.0); Platelet Count 351 K/mm3 (142-424); Red Blood Count 4.13 M/mm3 (4.20-5.40); Red Cell Distribution Width 18.6 % (11.5-17.5)
[2022-07-31 12:04] LABS: Alanine Aminotransferase 34 U/L (12-78); Albumin Level 4.2 g/dl (3.5-5.0); Albumin/Globulin Ratio 1.4 (1.1-1.8); Alkaline Phosphatase 76 U/L (38-126); Anion Gap 17.2 mEq/L (5-15); Aspartate Amino Transferase 43 U/L (14-36); Bilirubin,Total 0.5 mg/dl (0.2-1.3); Blood Urea Nitrogen 36 mg/dl (7-17); Calcium 9.5 mg/dl (8.4-10.2); Carbon Dioxide 26 mmol/L (22.0-30.0); Chloride 97 mmol/L (98-107); Creatinine Clearance Estimated 56 mL/min (50-200); Estimated Glomerular Filt Rate 56 ml/min (>60); GFR (African American) 68 ML/MIN (>60); Glucose 179 mg/dl (74-100); Potassium 4.2 mmoL/L (3.5-5.1); Sodium 136 mmol/L (136-145); Total Protein,Serum 7.2 g/dl (6.3-8.2)
--- NOTE | 2022-07-31 12:04 | PC.NURSE ---
PT rang out and advised she was starting to have some pain. Notified MD. Order entered
[2022-07-31 12:08] LABS: INR 0.98 (0.9-1.1); Prothrombin Time 10.6 seconds (10.1-12.5)
--- NOTE | 2022-07-31 12:12 | PC.NURSE ---
Dr Niño at bedside and spoke with Dr Yoon
--- NOTE | 2022-07-31 12:13 | PC.NURSE ---
Dr. Niño at bedside and gave VO for 1/2 inch nitro paste applied to the top of the right foot. Order entered and med applied and wrapped loosely with cobshayna
--- NOTE | 2022-07-31 12:18 | PC.NURSE ---
speaking with Dr. William
--- NOTE | 2022-07-31 12:24 | PC.NURSE ---
called dietary for lunch tray for patient
--- NOTE | 2022-07-31 12:37 | PC.NURSE ---
report called to porter molina
--- NOTE | 2022-07-31 12:39 | PC.NURSE ---
lab called to check status of covid swab. states they are resulting swab now
--- NOTE | 2022-07-31 12:39 | EXP.HP ---
History of Present Illness *Admission Date: 07/31/22 *Reason for visit:: foot pain *History of present illness: Ms. Galindo is a 62-year-old female who presented to the ER with complaint of right lower leg/foot pain. Pain has been worsening over the past 2 days. She has an extensive history of coronary artery disease post bypass, PAD, heart failure with preserved ejection fraction, severe pulmonary hypertension, and CKD. Was at the right lower extremity pain progressed most prominently this morning. States that her foot has become cool over the past 24 hours. Of note was recently admitted for dehydration, LESLEE and did not have any complaint of foot pain at that time. On arrival to the ER, exam showed cool right foot with palpable pulses. Does have movement. Feels some slight numbness in her toes per her report. Cardiology was consulted. Recommended patient be started on a heparin drip and admitted for observation. Initiated nitroglycerin on her foot to aid in vasodilation. Of note she is on anticoagulation currently with Eliquis and then dual antiplatelet therapy with Plavix and aspirin. She denies any chest pain, worsening of her shortness of breath, edema, nausea, vomiting, fever or chills. After arrival to the floor, patient states her pain responded somewhat to hydrocodone. Foot is still cool. States she continues to smoke. [facility] Disclaimer: The information contained in this section may have been updated after the patient was seen, as this information can be updated by other users. Medical History Afib Atrial fibrillation CAD (coronary artery disease) Cardiac pacemaker in situ Community acquired pneumonia Congestive heart failure COPD (chronic obstructive pulmonary disease) Diabetes mellitus Diabetes mellitus, type 2 Dyspnea Hyperlipidemia Kidney stone Non-STEMI (non-ST elevated myocardial infarction) Pneumonia Sinus tachycardia Tobacco abuse Surgical History (Updated 07/31/22 @ 13:18 by Savana Block APRN) H/O heart artery stent S/P insertion of iliac artery stent S/P triple vessel bypass S/P triple vessel bypass S/P triple vessel bypass Status post atrioventricular mike ablation Status post biventricular pacemaker Family History Kidney failure Family history of hypertension Family history of diabetes mellitus type II Family history of myocardial infarction Family history of hyperlipidemia Social History (Updated 07/31/22 @ 12:47 by Anna Lundberg RN) Smoking Status: Current every day smoker tobacco type: cigarettes packs per day: 1 alcohol intake: never current occupational status: retired Travel in the last 8 weeks: Inside the [place] household members: family caffeine: No Review of Systems Review of Systems Review of systems (narrative): 14 point review of systems performed, pertinent positives and negatives as per HPI Meds Home Medications and Allergies Home Medications Medication Instructions Recorded Confirmed Type albuterol sulfate 90 mcg/actuation 2 inh inhalation Q6HP PRN 07/24/22 07/31/22 History aerosol inhaler Breathing Problems apixaban 5 mg tablet (Eliquis) 5 mg PO BID Blood thinner 07/24/22 07/31/22 History aripiprazole 5 mg tablet 5 mg PO DAILY Mood 07/24/22 07/31/22 History aspirin 81 mg tablet,delayed 81 mg PO DAILY CAD 07/24/22 07/31/22 History release atorvastatin 80 mg tablet 80 mg PO HS Cholesterol 07/24/22 07/31/22 History clopidogrel 75 mg tablet 75 mg PO DAILY Blood thinner 07/24/22 07/31/22 History empagliflozin 10 mg tablet 10 mg PO DAILY Diabetes 07/24/22 07/31/22 History (Jardiance) fluticasone fur. 100 mcg-umeclid 1 inh inhalation DAILY COPD 07/24/22 07/31/22 History 62.5 mcg-vilant 25 mcg inhalat.powder (Trelegy Ellipta) insulin glargine 100 unit/mL (3 80 unit SQ HS Diabetes 07/24/22 07/31/22 History mL) subcutaneous pe
[2022-07-31 12:42] LABS: PTT Heparin (inpatient only) 21.6 Seconds (23.6-34.0)
--- NOTE | 2022-07-31 13:01 | PC.NURSE ---
arrived by w/c to room from ED
--- NOTE | 2022-07-31 13:10 | EXP.CARD.CON ---
History of Present Illness History of Present Illness Consult date: 07/31/22 Requesting physician: Alfonso Yoon Chief complaint: cold R foot History of present illness: This is a 62-year-old white female who presented to the emergency department with complaints of right leg pain. The patient has a history of known coronary artery disease status post coronary artery bypass grafting, PAD, diastolic congestive heart failure, severe pulmonary hypertension and chronic kidney disease. The patient states that she has been having severe right leg pain for the last several days but it worsened this morning. She states that her right foot has been cold as well. She was in cardiology clinic yesterday and never mentioned any pain or coldness in her extremities. The patient stated that the pain got severe so she decided to come into the emergency department because she does have a history of known peripheral arterial disease as well as having a DVT in the right lower extremity. The patient is currently on anticoagulation with Eliquis. She denies any chest pain or pressure. She has chronic shortness of breath. She states that this is being moderate to severe for the last several months with really no change in her shortness of breath. She denies any lower extremity edema. She denies any fever, chills, nausea, vomiting, diarrhea, PND or orthopnea. [facility] Disclaimer: The information contained in this section may have been updated after the patient was seen, as this information can be updated by other users. Medical History Afib Atrial fibrillation CAD (coronary artery disease) Cardiac pacemaker in situ Community acquired pneumonia Congestive heart failure COPD (chronic obstructive pulmonary disease) Diabetes mellitus Diabetes mellitus, type 2 Dyspnea Hyperlipidemia Kidney stone Non-STEMI (non-ST elevated myocardial infarction) Pneumonia Sinus tachycardia Tobacco abuse Surgical History (Updated 07/31/22 @ 13:18 by Savana Block APRN) H/O heart artery stent S/P insertion of iliac artery stent S/P triple vessel bypass S/P triple vessel bypass S/P triple vessel bypass Status post atrioventricular mike ablation Status post biventricular pacemaker Family History Kidney failure Family history of hypertension Family history of diabetes mellitus type II Family history of myocardial infarction Family history of hyperlipidemia Social History (Updated 07/31/22 @ 12:47 by Anna M Toño, RN) Smoking Status: Current every day smoker tobacco type: cigarettes packs per day: 1 alcohol intake: never current occupational status: retired Travel in the last 8 weeks: [place] the [place] household members: family caffeine: No Review of Systems Review of Systems Review of systems:: pertinent systems reviewed and negative unless documented below Constitutional Constitutional: Reports system reviewed and no additional complaints, except as documented Eyes Eyes: Reports system reviewed and no additional complaints, except as documented ENT Ears, Nose, Mouth, and Throat: Reports system reviewed and no additional complaints, except as documented *Cardiovascular Cardiovascular: Reports system reviewed and no additional complaints, except as documented, Reports dyspnea and Reports dyspnea on exertion *Respiratory Respiratory: Reports system reviewed and no additional complaints, except as documented, Reports dyspnea and Reports dyspnea on exertion *Gastrointestinal Gastrointestinal: Reports system reviewed and no additional complaints, except as documented *Genitourinary Genitourinary: Reports system reviewed and no additional complaints, except as documented *Musculoskeletal Musculoskeletal: Reports system reviewed and no additional complaints, except as documented and Reports radiating pain into limb (right leg pain) Integumentary/Breast
[2022-07-31 13:12] LABS: Hemoglobin A1C 7.1 % (4.0-6.0)
--- NOTE | 2022-07-31 14:30 | HMH.PHAHEP ---
[facility] Pharmacy Heparin Dosing Demographic Data Admission date:: 07/31/22 Date: 07/31/22 Time: 14:30 Allergies Allergy/AdvReac Type Severity Reaction Status Date / Time No Known Allergies Allergy Verified 07/30/22 09:33 Height: 1.6 m Weight: 62.312 kg Indication Medication therapy:: Heparin Current Indications:: ISCHEMIC RT FOOT Current Active Problems (Updated 07/31/22 @ 13:18 by Savana Block APRN) Status post biventricular pacemaker (Acute) Chronic heart failure with preserved ejection fraction (HFpEF) (Chronic) Ischemia of extremity (Acute) Chronic anticoagulation (Acute) Chronic hypotension (Acute) Severe pulmonary hypertension (Acute) Chronic kidney disease (Acute) Dyspnea (Acute) Tobacco abuse (Acute) COPD (chronic obstructive pulmonary disease) (Acute) S/P triple vessel bypass (Acute) Atrial fibrillation (Acute) CAD (coronary artery disease) (Acute) Diabetes mellitus (Acute) Hyperlipidemia (Acute) Status post atrioventricular mike ablation (Acute) CVA?: No Bleeding problem?: No Kidney disease?: No OK?: No Desired PTT range:: 50-75 seconds Labs Anticoagulation Lab Results:: 07/31/22 11:29 Hgb 10.3 L Hct 35.0 L Plt Count 351 Monitoring Dose Monitor 1: Date: 07/31/22 Time: 11:29 PTT Result:: 21.6 Infusion Rate:: HEPARIN BOLUS OF 5000 UNITS AND 1100 UNITS/HR Dose Monitor 2: Date: 07/31/22 Time: 15:15 PTT Result:: 92.0 Infusion Rate:: LEFT INFUSION RATE AT HEPARIN 1100 UNITS/HR (22 ML/HR) Dose Monitor 3: Date: 07/31/22 Time: 18:10 PTT Result:: 73.9 Infusion Rate:: CONTINUE WITH HEPARIN 1100 UNITS/HR (22 ML/HR) Dose Monitor 4: Date: 08/01/22 Time: 00:10 PTT Result:: 63.6 Infusion Rate:: CONTINUE WITH HEPARIN 1100 UNITS/HR (22 ML/HR) Dose Monitor 5: Date: 08/01/22 Time: 06:15 PTT Result:: 56.6 Infusion Rate:: CONTINUE WITH HEPARIN 1100 UNITS/HR (22 ML/HR) Core Measures Is INR > or = 2 at discharge?: No Most Recent Labs:: Laboratory Results - last 24 hr 07/31/22 11:29: APTT 21.6 L 07/31/22 11:29: WBC 9.0, RBC 4.13 L, Hgb 10.3 L, Hct 35.0 L, MCV 84.9, MCH 24.8 L, MCHC 29.3 L, RDW 18.6 H, Plt Count 351, MPV 7.3 L, Neut % (Auto) 79.3, Lymph % (Auto) 12.3, Maury % (Auto) 6.6, Eos % (Auto) 1.4, Baso % (Auto) 0.4, Neut # (Auto) 7.1, Lymph # (Auto) 1.1, Maury # (Auto) 0.6, Eos # (Auto) 0.1, Baso # (Auto) 0.0 07/31/22 11:: PT 10.6, INR 0.98 07/31/22 11:29: Sodium 136, Potassium 4.2, Chloride 97 L, Carbon Dioxide 26, Anion Gap 17.2 H, BUN 36 H D, Creatinine 1.00, Estimated Creat Clear 56, Estimated GFR 56 L, Est GFR ( Amer) 68, Glucose 179 H, Calcium 9.5, Total Bilirubin 0.5, AST 43 H D, ALT 34 D, Alkaline Phosphatase 76, Total Protein 7.2, Albumin 4.2, Globulin 3.0, Albumin/Globulin Ratio 1.4 07/31/22 11:29: SARS-CoV-2 (PCR) Not detected, Influenza A Untype (PCR) Not detected, Influenza Type B (PCR) Not detected 07/31/22 11:29: Hemoglobin A1c 7.1 H If INR was < than 2.0 why was therapy stopped?: ON ELIQUIS AT HOME. Were Heparin and Warfarin started on the same day?: No If not, why?: ON ELIQUIS AT HOME.
--- NOTE | 2022-07-31 16:20 | CT_ITS ---
PROCEDURE INFORMATION: Exam: CTA Abdominal Aorta and Bilateral Lower Extremities (Run-off) With Contrast Exam date and time: 07/31/2022 5:21 PM Age: 62 years old Clinical indication: Other: Ischemic foot; Additional info: Cold foot, ischemic foot? . Right lower leg TECHNIQUE: Imaging protocol: Computed tomographic angiography of the of the abdominal aorta, pelvis and bilateral lower extremities with contrast. 3D rendering (Not supervised by radiologist): MIP and/or 3D reconstructed images were created by the technologist. Radiation optimization: All CT scans at this facility use at least one of these dose optimization techniques: automated exposure control; mA and/or kV adjustment per patient size (includes targeted exams where dose is matched to clinical indication); or iterative reconstruction. Contrast material: ISOVUE 370; Contrast volume: 120 ml; Contrast route: INTRAVENOUS (IV); REPORTING DATA: Count of CT and Cardiac NM exams in prior 12 months: This patient has received 2 known CTs and 0 known cardiac nuclear medicine studies in the 12 months prior to the current study. COMPARISON: 1. CT ABDOMEN PELVIS WO CON 07/24/2022 11:[address] ANGIO CHEST PE PROTOCOL 05/08/2022 1:04 AM FINDINGS: Aorta: Diffuse abdominal aortic atherosclerotic disease with nearly circumferential calcified plaque which causes diffuse luminal irregularities and segments of mild stenosis. Stable shallow penetrating atherosclerotic ulcer just below the level of the dominant renal arteries where the aorta measures up to 3 cm in diameter measured on axial images at this level. Infrarenal abdominal aorta is otherwise ectatic. Celiac trunk and mesenteric arteries: Celiac demonstrates ostial stenosis secondary to extensive calcified plaque. Celiac otherwise has [id number] stenosis from calcified plaque. Splenic and hepatic arteries are patent, diffuse calcified plaque. Short-segment moderate versus severe stenosis of the proximal to mid SMA (lumen obscured by plaque artifact) which otherwise has diffuse mild disease. Patent NATALIE. Renal arteries: Two right renal arteries with accessory inferior renal artery. Dominant renal artery has a moderate proximal stenosis. Single left renal artery. Proximal left renal artery stent is patent. Right iliac arteries: Common iliac artery stent extending into the external iliac artery is patent. Common iliac artery is ectatic with no significant stenosis. [id number]-[id number] stenosis of the external iliac artery. Internal iliac artery is occluded with reconstituted branches. Right fem-pop bypass: Occluded. Right femoral/popliteal arteries: Moderate stenosis of the common femoral artery, severe distal stenosis. SFA is occluded, with string like patency of the distal SFA/proximal popliteal artery. Popliteal artery is patent with diffuse severe disease. Segment of occlusion at the mid vessel can not be excluded. Deep femoral artery is patent with severe disease. Right infrapopliteal arteries: Anterior tibial artery is patent to the foot. Moderate versus severe disease of the tibioperoneal trunk. Posterior tibial artery is small in caliber, visualized/patent to the mid calf. Peroneal artery has severe disease, patent to the foot, supplies the plantar artery. Left iliac arteries: Common iliac artery stent is patent. 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 Severe stenosis of the mid external iliac artery which otherwise has [id number] disease. Severe proximal internal iliac artery disease. Left fem-pop bypass: Patent with segments of mild
[2022-07-31 17:04] LABS: POC Glucose,Bedside 211 (70-110)
[2022-07-31 18:49] LABS: PTT Heparin (inpatient only) 73.9 Seconds (23.6-34.0)
[2022-07-31 20:45] LABS: POC Glucose,Bedside 177 (70-110)
[2022-08-01 00:26] LABS: PTT Heparin (inpatient only) 63.6 Seconds (23.6-34.0)
[2022-08-01 04:00] VITALS: BP 82/40; PULSE 95; RESP 20; TEMP 36.7; BMI 24.6
--- NOTE | 2022-08-01 04:09 | PC.NURSE ---
NOTIFIED WAGE AND SALARY ADMINISTRATOR OF PT'S BP OF 82/40 MANUALLY. WAGE AND SALARY ADMINISTRATOR STATED THAT SHE WAS OK WITH THAT BP.
[2022-08-01 05:44] LABS: POC Glucose,Bedside 105 (70-110)
[2022-08-01 07:02] LABS: Basophils # 0.1 K/mm3 (0-0.2); Basophils % 0.5 % (0.1-2.0); Eosinophils # 0.1 K/mm3 (0.0-0.4); Hematocrit 31.4 % (37.0-47.0); Hemoglobin 9.6 g/dL (12.2-16.2); Lymphocytes # 1.9 K/mm3 (0.7-4.5); Lymphocytes % 19.5 % (10-50); Mean Corpuscular HGB Conc 30.6 g/dL (31.8-35.4); Mean Corpuscular Hemoglobin 25.5 pg (27.0-31.2); Mean Corpuscular Volume 83.1 fl (81-99); Monocytes # 0.6 K/mm3 (0.1-1.0); Monocytes % 6.4 % (1.7-9.3); Neutrophils # 6.9 K/mm3 (1.8-7.8); Neutrophils % 72.5 % (37.0-80.0); Platelet Count 353 K/mm3 (142-424); Red Blood Count 3.78 M/mm3 (4.20-5.40); Red Cell Distribution Width 19.2 % (11.5-17.5); White Blood Count 9.5 K/mm3 (4.8-10.8)
[2022-08-01 07:10] LABS: PTT Heparin (inpatient only) 56.6 Seconds (23.6-34.0)
[2022-08-01 07:11] LABS: Alanine Aminotransferase 21 U/L (12-78); Albumin Level 3.5 g/dl (3.5-5.0); Albumin/Globulin Ratio 1.4 (1.1-1.8); Alkaline Phosphatase 69 U/L (38-126); Anion Gap 11.5 mEq/L (5-15); Aspartate Amino Transferase 38 U/L (14-36); Bilirubin,Total 0.3 mg/dl (0.2-1.3); Blood Urea Nitrogen 23 mg/dl (7-17); Calcium 8.3 mg/dl (8.4-10.2); Carbon Dioxide 29 mmol/L (22.0-30.0); Chloride 103 mmol/L (98-107); Creatinine Clearance Estimated 57 mL/min (50-200); Estimated Glomerular Filt Rate 72 ml/min (>60); GFR (African American) 87 ML/MIN (>60); Globulin 2.5 g/dL (1.3-3.2); Glucose 85 mg/dl (74-100); Magnesium 2.1 mg/dl (1.6-2.3); Potassium 3.5 mmoL/L (3.5-5.1); Sodium 140 mmol/L (136-145)
--- NOTE | 2022-08-01 07:28 | PC.NURSE ---
Spoke with pharmacy. No changes to Heparin gtt. Currently infusing @ 1100 units/hr. New PTT in 6 hrs.
[2022-08-01 07:42] VITALS: BP 129/60; PULSE 78; RESP 18; TEMP 36.9; O2SAT 98
--- NOTE | 2022-08-01 11:26 | EXP.DC.SUM ---
General Admission date:: 07/31/22 Discharge date: 08/01/22 HPI HPI HPI: Ms. Galindo is a 62-year-old female who presented to the ER with complaint of right lower leg/foot pain. Pain has been worsening over the past 2 days. She has an extensive history of coronary artery disease post bypass, PAD, heart failure with preserved ejection fraction, severe pulmonary hypertension, and CKD. Was at the right lower extremity pain progressed most prominently this morning. States that her foot has become cool over the past 24 hours. Of note was recently admitted for dehydration, LESLEE and did not have any complaint of foot pain at that time. On arrival to the ER, exam showed cool right foot with palpable pulses. Does have movement. Feels some slight numbness in her toes per her report. Cardiology was consulted. Recommended patient be started on a heparin drip and admitted for observation. Initiated nitroglycerin on her foot to aid in vasodilation. Of note she is on anticoagulation currently with Eliquis and then dual antiplatelet therapy with Plavix and aspirin. She denies any chest pain, worsening of her shortness of breath, edema, nausea, vomiting, fever or chills. After arrival to the floor, patient states her pain responded somewhat to hydrocodone. Foot is still cool. States she continues to smoke. Hospital Course Hospital Course Hospital Course: Ms. Galindo is a 62-year-old female with extensive cardiovascular and peripheral artery disease history.? Continues to smoke.? Presents with concern for decreased blood flow to her right foot.? Initially admitted for heparin drip and attempt to improve perfusion. Fortunately perfusion has not improved. No interventions available given previous exhaustive measures including stenting and grafting. Patient's continued smoking complicates her vasculopathy/peripheral artery disease. At this time, we will transition to oral anticoagulation and encouraged her to ambulate/be mobile as much as possible. Stable for discharge home. Close follow-up with cardiology as an outpatient for monitoring.? Problems addressed as follows: Suspected right foot ischemia Peripheral artery disease Foot is painful with numb toes, cool to touch, no palpable pulses DP or PT. ?Unable to find pulses with Doppler in the right foot. Left foot with thready pulses there are identifiable with Doppler. Initiated on heparin drip. Cardiology was consulted, recommended monitoring overnight on heparin and using nitroglycerin topically. Patient has significant peripheral artery disease however. They counseled on her history. Patient has had multiple grafts with bilateral femoropopliteal grafts, right chronically occluded. Multiple stents in bilateral legs. History of CABG. Patient is an extensive vasculopath. CTA of lower extremities obtained showing poor blood flow. Unfortunately there are no viable interventions to improve flow as these have been exhausted with grafts and stenting in the past. At this time her disease impacts the microvasculature. Medical management recommended. If no improvement over the coming weeks, her foot may declare itself from ischemic injury. Continuing with anticoagulation on triple therapy (Plavix, aspirin, Eliquis). Encouraged ambulation is much as possible in hopes of improving flow. Counseled on need for smoking cessation however patient does not want help and has consistently shown difficulty with attempting to stop smoking. She is precontemplative at this time per discussion. Close follow-up with cardiology. No further inpatient recommendations at this time. Recommend ambulating with a cane. Patient evaluated by PT prior to discharge, ambulating well. Minimal instability. Just required standby assist. Did not use any devices during evaluation. Pain medication sent in case she develops worsening pain in the foot. CKD: Creatinine at baseline 1.0. Atrial fibrillation Heart failure with preserved ejection
--- NOTE | 2022-08-01 13:16 | HMH.PTEV ---
Physical Therapy Evaluation Rehab PT IP Evaluation Start: 08/01/22 09:46 Freq: ONCE Status: Discharge Protocol: Document 08/01/22 12:59 PDESEROUX (Rec: 08/01/22 13:15 [email or web address] [id number]) Subjective/History History History Pt. is a 62 yoa female who presents to [facility] Inpatient setting who c/o RLE lower leg/ ankle/ft. P! and numbness. Pt. reports, my foot was blue when she admitted self into hospital. Pt.'s presents w/ a PMH of Afib, CAD, DM, CHF, COPD, and Hyperlipidemia. Pt. reports she lives with her mother in a 1-story home. Pt. reports she and her mother are both IND. w/ ADLs. Pt. reports she is ready to go back home. Subjective Subjective Pt. reports no P! upon rest nor w/ activity this date. Rehab PT IP Eval Objective Appearance Patient Behavior Appropriate,Cooperative Patient Orientation Person,Place,Age,Month, Situation Difficulty following instructions none Speech Pattern Clear,Appropriate,Coherent Ambulation Patient Able to Ambulate Yes Ambulation Observation IP General Gait Pattern Observation Decrease Weight Bear (R), Decrease Stride Lngth (L) Ambulation Distance (feet) 20 Ambulation Assistive Device None Ambulation Ability Supervision/Stand by Balance Ability to Arise Able, w/o using arms Sitting Balance Steady, safe Standing Balance Narrow stance w/o support Dynamic Sitting Balance Ability Normal Dynamic Standing Balance Ability Good Transfers Bed Transfer Ability Supervision/Stand by Sit to Stand Bed Transfer Ability Supervision/Stand by Pain Right Lower Pain Intensity 0 ROM RLE PT ROM Status WFL LLE PT ROM Status WFL MMT RLE PT MMT WFL LLE PT MMT WFL Rehab PT IP prob,goals,plan Problems Date of Evaluation: 08/01/22 Other Pt Problem N/A Rehab Potential Rehab Potential Innapropriate for Skilled Therapy Equipment Needs Assistive Devices None / NA Plan Other Intervention Plan N/A Discharge Goals Bed Transfer Ability Supervision/Stand by Sit to Stand Chair Transfer Abilit
--- NOTE | 2022-08-03 14:27 | CARE MANAGER ---
Spoke with patient for post-discharge phone interview, no issues noted.
== END 2022-08-01 12:36 | disposition home or self-care (01) ==
LOC: ER 11:34 → 2ND 12:32
PROVIDERS: Admitting Provider Internal Medicine Adolescent Medicine; Emergency Provider Emergency Medicine; PCP Emergency Medicine; Visit Provider Internal Medicine Adolescent Medicine
DX: I50.32 Chronic diastolic (congestive) heart failure (principal); Z79.01 Long term (current) use of anticoagulants; Z79.84 Long term (current) use of oral hypoglycemic drugs; I27.20 Pulmonary hypertension, unspecified; J44.9 Chronic obstructive pulmonary disease, unspecified; I48.20 Chronic atrial fibrillation, unspecified; E11.22 Type 2 diabetes mellitus with diabetic chronic kidney disease; N17.9 Acute kidney failure, unspecified; Z95.1 Presence of aortocoronary bypass graft; I25.708 Atherosclerosis of coronary artery bypass graft(s), unspecified, with other forms of angina pectoris; Z95.0 Presence of cardiac pacemaker; F17.210 Nicotine dependence, cigarettes, uncomplicated; Z79.02 Long term (current) use of antithrombotics/antiplatelets; Z95.820 Peripheral vascular angioplasty status with implants and grafts; Z95.5 Presence of coronary angioplasty implant and graft; I70.291 Other atherosclerosis of native arteries of extremities, right leg; I77.1 Stricture of artery; Z20.822 Contact with and (suspected) exposure to COVID-19; N18.9 Chronic kidney disease, unspecified
CPT/HCPCS: G0378; 36415; 73706; 80053; 82962; 83036; 83735; 85025; 85610; 85730; 94640; 97161; 99285; C9803; Q9967; U0003; U0005

== ENCOUNTER → 2022-09-14 09:51 | Outpatient (CLI) | payer MEDICARE, SELFPAY ==
[2022-09-14 10:42] LABS: Basophils % 0.3 % (0.1-2.0); Eosinophils # 0.1 K/mm3 (0.0-0.4); Eosinophils % 0.6 % (0.1-12.0); Hematocrit 36.6 % (37.0-47.0); Hemoglobin 10.8 g/dL (12.2-16.2); Lymphocytes # 1.6 K/mm3 (0.7-4.5); Lymphocytes % 10.6 % (10-50); Mean Corpuscular HGB Conc 29.5 g/dL (31.8-35.4); Mean Corpuscular Hemoglobin 23.8 pg (27.0-31.2); Mean Corpuscular Volume 80.6 fl (81-99); Mean Platelet Volume 8.4 fl (7.4-10.4); Monocytes # 0.6 K/mm3 (0.1-1.0); Monocytes % 4.3 % (1.7-9.3); Neutrophils # 12.3 K/mm3 (1.8-7.8); Neutrophils % 84.3 % (37.0-80.0); Platelet Count 546 K/mm3 (142-424); Red Blood Count 4.54 M/mm3 (4.20-5.40); Red Cell Distribution Width 18.9 % (11.5-17.5); White Blood Count 14.6 K/mm3 (4.8-10.8)
[2022-09-14 10:54] LABS: Anion Gap 22.1 mEq/L (5-15); Blood Urea Nitrogen 32 mg/dl (7-17); Calcium 9.5 mg/dl (8.4-10.2); Carbon Dioxide 23 mmol/L (22.0-30.0); Chloride 100 mmol/L (98-107); Estimated Glomerular Filt Rate 63 ml/min (>60); GFR (African American) 76 ML/MIN (>60); Glucose 193 mg/dl (74-100); Potassium 4.1 mmoL/L (3.5-5.1); Sodium 141 mmol/L (136-145)
== END ==
PROVIDERS: PCP Emergency Medicine
DX: I99.8 Other disorder of circulatory system (principal)
CPT/HCPCS: 36415; 80048; 85025